=== PATIENT | female | born 1950 | race African-American/Black ===

== ENCOUNTER 2018-01-04 08:51 | Observation (INO) | payer MEDICARE ==
[~2018-01-04] VITALS: Ht 160 cm; Wt 83.2 kg
[2018-01-04] MEDS: D5NS/KCL 20MEQ 1,000 ML IV SCH ×2 (03:00→15:07)
--- OUTSIDE RECORDS SUMMARY | 2018-01-04 08:55 | XMS REPORT ---
Author Author [facility] Address Unknown Phone Unavailable Care Team Providers Care [employer] Name Role Phone Lorene FRANCOIS Unavailable Unavailable Problems This patient has no known problems. Allergies, Adverse Reactions, Alerts This patient has no known allergies or adverse reactions. Medications This patient has no known medications. Results Test Description Test Time Test Comments Text Results Atomic Results Result Comments ABDOMEN COMPLETE - HOPD 2018-01-03 20:16:00 [place] [id number] Patient Name: LAINA BINGHAM MR #: [id number] : 1951 Age/Sex: 66/F Req #: [id number] [facility] Physician: Ordered by: RENAN FRANCOIS MD Report #: [id number] Location: [facility] Room/Bed: Procedure: [id number] HOPD/ABDOMEN COMPLETE - HOPD Exam Date: 01/03/18 Exam Time: 1944 REPORT STATUS: Signed EXAMINATION: ABDOMEN COMPLETE - HOPD INDICATION: Epigastric and abdominal pain with bloating and nausea [id number] COMPARISON: None FINDINGS: TUBES and LINES: None. LUNGS: Lungs are well inflated. Lungs are clear. There is no evidence of pneumonia or pulmonary edema. PLEURA: No pleural effusion or pneumothorax. HEART AND MEDIASTINUM: The cardiomediastinal silhouette is unremarkable. Rounded prominence of the lower mediastinum suggestive of a hiatal hernia. BONES AND SOFT TISSUES: No acute osseous lesion. Soft tissues are unremarkable. ABDOMEN: No free air under the diaphragm. There are cholecystectomy clips. Multiple calcifications overlying the soft tissues of the flanks likely related to subcutaneous injections. Normal amount of stool in the colon. IMPRESSION: No acute thoracic abnormality. Nonobstructive bowel gas pattern. Signed by: DR. Lars Tejada MD on 01/03/2018 8:20 PM Dictated By: LARS TEJADA MD 19 Transcribed By: GENA on 01/03/182019 COPY TO: RENAN FRANCOIS MD
[2018-01-04] MEDS ORDERED: ONDANSETRON HCL INJ 2 MG/ML VIAL IV STA (09:34)
[2018-01-04] MEDS ORDERED: SODIUM CHLORIDE 0.9% 1000ML 1,000 ML IV SCH ×2 (09:45→10:01)
[2018-01-04] MEDS ORDERED: MORPHINE SULFATE INJ 4 MG/ML INJ IV ONE (10:15)
[2018-01-04] MEDS ORDERED: ONDANSETRON HCL INJ 2 MG/ML VIAL IV PRN (10:15)
[2018-01-04] MEDS ORDERED: MORPHINE SULFATE INJ 4 MG/ML INJ IV PRN (10:15)
[2018-01-04 12:20] VITALS: BP 139/63
[2018-01-04 12:44] VITALS: BP 183/79
[2018-01-04] MEDS ORDERED: ACETAMINOPHEN 325 MG TAB PO PRN (12:45)
[2018-01-04] MEDS ORDERED: PREDNISONE10 MG PO (13:04)
[2018-01-04] MEDS ORDERED: LORATADINE10 MG PO (13:10)
[2018-01-04] MEDS ORDERED: HYDRALAZINE HCL 20 MG/ML VIAL IV PRN (13:30)
[2018-01-04] MEDS: METHYLPREDNISOLONE SOD SUCC 40 MG/ML VIAL IV SCH (13:36)
[2018-01-04] MEDS ORDERED: KETOROLAC TROMETHAMINE 30 MG/ML VIAL IV ONE (14:00)
[2018-01-04 14:06] LABS: BASOPHILS % 0.7 % (0.0-1.0); EOSINOPHILS # (AUTO) 0.4 (0.0-0.4); EOSINOPHILS % 10.3 % (0.0-6.0); HEMATOCRIT 34.1 % (34.2-44.1); HEMOGLOBIN 11.3 g/dL (12.0-16.0); LYMPHOCYTES # (AUTO) 1.6 (1.0-3.2); LYMPHOCYTES % 36.9 % (18.0-39.1); MEAN CORPUSCULAR HEMOGLOBIN 30.7 pg (28-32); MEAN CORPUSCULAR HGB CONC 33.1 g/dL (31-35); MEAN CORPUSCULAR VOLUME 92.7 fL (81-99); MONOCYTES # (AUTO) 0.4 (0.2-0.8); MONOCYTES % 10.1 % (4.4-11.3); NEUTROPHILS # (AUTO) 1.8 (2.1-6.9); NEUTROPHILS % 41.8 % (38.7-80.0); PLATELET COUNT 54 x10e3/uL (140-360); RED BLOOD COUNT 3.68 x10e6/uL (3.6-5.1)
[2018-01-04] MEDS ORDERED: MORPHINE SULFATE 2 MG/ML SYR IV PRN (14:15)
[2018-01-04 14:18] LABS: ANION GAP 17.1 mmol/L (8-16); BLOOD UREA NITROGEN 15 mg/dL (7-26); BUN/CREATININE RATIO 14 (6-25); CALCIUM 9.2 mg/dL (8.4-10.2); CARBON DIOXIDE 20 mmol/L (22-29); CHLORIDE 114 mmol/L (98-107); CREATININE, SERUM 1.07 mg/dL (0.57-1.11); EST GLOMERULAR FILTRATION RATE > 60 ML/MIN (60-); GLUCOSE 68 mg/dL (74-118); POTASSIUM 4.1 mmol/L (3.5-5.1); SODIUM 147 mmol/L (136-145)
--- NOTE | 2018-01-04 14:40 | History and Physical ---
DATE OF SERVICE: January 04, 2018 CHIEF COMPLAINT: Difficulty swallowing. HPI: This is a 67-year-old female with known history of primary biliary cirrhosis, being treated by a GI specialist in the [facility], with also history of esophageal stricture about 3 years ago that she reports was due to underlying acid reflux, now presents with a 1-day history of difficulty swallowing. Patient reports that she has been having some nausea and vomiting that all occurred yesterday morning when suddenly she noticed that she had difficulty swallowing. She was able to try to eat breakfast, but the food felt like it was stuck towards the end of her swallow, and she reports that it feels like it was stuck between the esophagus and the entry of her stomach. Patient reports she had something similar several years ago in the [facility], diagnosed with acid reflux. She denies any history of achalasia in the past. She has had esophageal dilatation 3 years ago; and since then, she has not had any. She is currently being treated for primary biliary cirrhosis. She denies any chest pain, palpitation. Reports having some positive abdominal pain. Patient seen and evaluated at bedside on the medical floor, currently doing well with no other issues. REVIEW OF SYSTEMS: Pertinent positives: Decreased oral intake, acid reflux, esophagitis. Pertinent negatives: Denies any chest pain, palpitations, dysuria, hematuria, frequency, urgency, lightheadedness, dizziness, headaches, shortness of breath, cough, congestion, fever, or any other complaints. The rest of the 14-point review of systems has been reviewed with the patient and are negative. ALLERGIES: NO KNOWN DRUG ALLERGIES. HOME MEDICATIONS: She reports just taking prednisone 10 mg daily and then also loratadine as needed. PAST MEDICAL HISTORY: Has a history of esophageal strictures, history of acid reflux, primary biliary cirrhosis. SURGICAL HISTORY: She had EGD 3 years ago with esophageal dilatation due to strictures. FAMILY HISTORY: Hypertension and diabetes. SOCIAL HISTORY: No drugs. No alcohol. Does not smoke. Good social support. PHYSICAL EXAMINATION VITAL SIGNS: Temperature is 97.6, pulse 103, respiratory rate is 18, blood pressure is 183/79, and pulse ox 98% on room air. GENERAL: Not in acute distress, alert and oriented x3, comfortable on examination. HEENT: Head normocephalic, atraumatic. Eyes: Pupils equal, round, and reactive to light bilaterally. Extraocular movements intact bilaterally. Throat; no evidence of any erythema or exudates in the posterior pharynx. Has poor dentition. NECK: Supple. Good range of motion. PULMONARY: Clear to auscultation bilaterally. No wheezing. No rales. No rhonchi. No crackles appreciated. CARDIOVASCULAR: Positive S1 and S2. No murmurs, rubs, or gallops appreciated. ABDOMEN: Soft, nondistended, and nontender to palpation. Bowel sounds present. MUSCULOSKELETAL: Strength is 5/5 throughout. No evidence of any muscle deficit on examination. No weakness appreciated. NEUROLOGICAL: Cranial nerves II through XII are grossly intact. No evidence of any neurological deficits on exam. SKIN: Intact. Warm to touch. Good cap refill. PSYCHIATRIC: Normal affect and mood. EXTREMITIES: No edema. Good range of motion throughout. LAB FINDINGS: None were drawn in the ED. IMAGING STUDIES: KUB showed no acute thoracic abnormality. Nonobstructive bowel gas pattern. IMPRESSION 1. Dysphagia with increased oral secretions. 2. History of esophageal strictures. 3. Primary biliary cirrhosis. 4. Acid reflux. 5. Morbid obesity. PLAN: At this time, GI has been consulted. We are going to keep the patient n.p.o. as she is having difficulty swallowing her own saliva. Put her on D5 NS at 100 mL per hour. All her home medications will be converted to IV if indicated. I discussed this with the patient as well. We will put her on Lovenox for DVT prophylaxis. She will continue to be n.p.o. until further evaluated by GI and will likely need EGD to further evaluate. The patient will also be on Protonix 40 mg IV b.i.d. Discussed the case with nursing staff. Job#: [id number] EDWIN
[2018-01-04 15:40] VITALS: BP 140/65
[2018-01-04] MEDS: PANTOPRAZOLE 40 MG 10ML VIAL IV SCH (17:39)
[2018-01-04 20:00] VITALS: BP 127/65
[2018-01-05] VITALS (8 sets, daily range): BP systolic 119–181; BP diastolic 58–80
[2018-01-05 05:38] LABS: BASOPHILS % 0.3 % (0.0-1.0); EOSINOPHILS # (AUTO) 0.2 (0.0-0.4); EOSINOPHILS % 3.9 % (0.0-6.0); HEMATOCRIT 30.2 % (34.2-44.1); HEMOGLOBIN 10.3 g/dL (12.0-16.0); LYMPHOCYTES # (AUTO) 1.1 (1.0-3.2); LYMPHOCYTES % 27.6 % (18.0-39.1); MEAN CORPUSCULAR HEMOGLOBIN 30.9 pg (28-32); MEAN CORPUSCULAR HGB CONC 34.1 g/dL (31-35); MEAN CORPUSCULAR VOLUME 90.7 fL (81-99); MONOCYTES # (AUTO) 0.4 (0.2-0.8); MONOCYTES % 9.8 % (4.4-11.3); NEUTROPHILS # (AUTO) 2.3 (2.1-6.9); NEUTROPHILS % 58.1 % (38.7-80.0); RED BLOOD COUNT 3.33 x10e6/uL (3.6-5.1); RED CELL DISTRIBUTION WIDTH 15.7 % (11.7-14.4)
[2018-01-05 05:40] LABS: PLATELET COUNT 44 x10e3/uL (140-360)
[2018-01-05 05:55] LABS: ANION GAP 7.6 mmol/L (8-16); CALCIUM 8.7 mg/dL (8.4-10.2); CREATININE, SERUM 1.1 mg/dL (0.57-1.11); POTASSIUM 4.6 mmol/L (3.5-5.1)
[2018-01-05] MEDS: DEXTROSE 5%/0.9% SOD CHL 1,000 ML IV SCH ×2 (07:10→19:08)
[2018-01-05 08:54] LABS: EOSINOPHILS % (MANUAL) 4 % (0-7); LYMPHOCYTES % (MANUAL) 24 % (19-48); MONOCYTES % (MANUAL) 5 % (3.4-9.0); NEUTROPHILS % (MANUAL) 66 % (40-74); PLATELET ESTIMATE MARKEDLY DECREASED; PLATELET MORPHOLOGY COMMENT NORMAL; RBC MORPHOLOGY COMMENT NORMAL
[2018-01-05] MEDS: METHYLPREDNISOLONE SOD SUCC 40 MG/ML VIAL IV SCH (09:17)
[2018-01-05] MEDS: PANTOPRAZOLE 40 MG 10ML VIAL IV SCH ×2 (09:17→17:59)
--- NOTE | 2018-01-05 10:04 | Progress Note ---
DATE: January 05, 2018 MEDICINE PROGRESS NOTE SUBJECTIVE: Patient is doing well today with no complaints. She is scheduled for EGD. She reports that the Protonix has helped her tremendously with her burning sensation in her stomach. OBJECTIVE VITAL SIGNS: Temperature 98.2, pulse 67, respiratory rate 16, blood pressure 125/68, pulse ox 98% on room air. GENERAL: Not in acute distress. Alert and oriented times 3. Cooperative on examination. HEENT: Head is normocephalic and atraumatic. Eyes: Pupils equal, round and reactive to light bilaterally. Extraocular movements intact bilaterally. NECK: Supple. Good range of motion. Throat with no evidence of any erythema or exudates in the posterior pharynx. Has poor dentition. PULMONARY: Clear to auscultation bilaterally. No wheezing. No rales. No rhonchi. No crackles appreciated. CARDIOVASCULAR: Positive S1 and S2. No murmurs, rubs or gallops appreciated. ABDOMEN: Soft, nondistended and nontender to palpation. Bowel sounds present. MUSCULOSKELETAL: Strength is 5/5 throughout. No evidence of any muscle deficit on examination. No weakness appreciated. NEUROLOGICAL: Cranial nerves II-XII are grossly intact. No evidence of any neurological deficits on exam. SKIN: Intact. Warm to touch. Good cap refill. PSYCHIATRIC: Normal affect and mood. EXTREMITIES: No edema. Good range of motion throughout. LAB FINDINGS: Show a white count of 3.8, hemoglobin 10.3, hematocrit is 30, and platelets of 44,000. Platelets yesterday was 54,000. Chemistry: Sodium 143, potassium 4.6, chloride 119, bicarb 21, anion gap of 7.6, BUN 15, creatinine is 1.1, glucose is 91. Calcium is 8.7. MICROBIOLOGY: None. IMAGING STUDIES: None. IMPRESSION 1. Dysphagia with increased oral secretions. 2. History of esophageal stricture. 3. Primary biliary cirrhosis. 4. Acid reflux. 5. Morbid obesity. 6. Thrombocytopenia likely secondary to primary biliary cirrhosis. PLAN: At this time, she is scheduled for EGD later today by GI. She will continue to be n.p.o. Continue on IV fluids. Once the EGD is performed, will initiate diet as per GI recommendations. Continue with Lovenox for DVT prophylaxis. Continue with Protonix b.i.d. If she does well and there is no issues, she will likely be discharged tomorrow if stable and cleared by GI. Job#: [id number] SHAYNE
[2018-01-05] MEDS ORDERED: SODIUM CHLORIDE 0.9% 250ML 250 ML ONE (13:30)
[2018-01-05] MEDS ORDERED: FENTANYL CITRATE/PF 100MCG/2 ML INJ ONE (18:29)
[2018-01-05] MEDS ORDERED: MIDAZOLAM HCL 2 MG/2 ML VIAL ONE (18:29)
[2018-01-05] MEDS ORDERED: SIMETHICONE 80 MG CHEW PO PRN (19:15)
[2018-01-05] MEDS ORDERED: CHLORASEPTIC SPRAY 177 ML BTL MM PRN (20:45)
[2018-01-06] VITALS (8 sets, daily range): BP systolic 120–146; BP diastolic 69–83
[2018-01-06] MEDS: DEXTROSE 5%/0.9% SOD CHL 1,000 ML IV SCH ×2 (03:04→12:45)
[2018-01-06] MEDS: PANTOPRAZOLE 40 MG 10ML VIAL IV SCH ×2 (08:38→16:43)
[2018-01-06] MEDS: METHYLPREDNISOLONE SOD SUCC 40 MG/ML VIAL IV SCH (08:38)
--- NOTE | 2018-01-06 16:01 | Progress Note ---
DATE: January 06, 2018 MEDICINE PROGRESS NOTE SUBJECTIVE: Patient is doing well today. She did have an esophageal dilatation yesterday performed by GI. She is currently on a full-liquid diet and it will be advanced per GI recommendations. OBJECTIVE VITAL SIGNS: Temperature is 98.8. Pulse is 84. Respiratory rate is 14. Blood pressure is 120/69. Pulse ox 98% on room air. LAB FINDINGS: Showed a white count of 3.8, hemoglobin 10.3, hematocrit is 30, platelets of 44. CHEMISTRY: Sodium 143, potassium 4.6, chloride 119, bicarb is 21, anion gap of 7.6, BUN is 15, creatinine is 1.1, glucose is 91, calcium is 8.7. MICROBIOLOGY: None. IMAGING STUDIES: None. PHYSICAL EXAMINATION GENERAL: Not in acute distress. Alert, oriented x3, cooperative on examination. HEENT: Head: Normocephalic, atraumatic. Eyes: Pupils equally round and reactive to light bilaterally. Extraocular movements intact bilaterally. Neck was supple with good range of motion. Throat: No evidence of any erythema or exudates in the posterior pharynx. Has poor dentition. PULMONARY: Clear to auscultation bilaterally. No wheezing, no rales, no rhonchi, no crackles appreciated. CARDIOVASCULAR: Positive S1/S2. No murmurs, rubs or gallops appreciated. ABDOMEN: Soft, nondistended, nontender to palpation. Bowel sounds present. MUSCULOSKELETAL: Strength is 5/5 throughout. No evidence of any musculoskeletal deficit on examination. No weakness appreciated. NEUROLOGICAL: Cranial nerves 2-12 grossly intact. No evidence of any neurological deficit on exam. SKIN: Intact. Warm to touch. Good capillary refill. PSYCHIATRIC: Normal affect and mood. EXTREMITIES: No edema. Good range of motion throughout. IMPRESSION 1. Dysphagia status post esophageal dilatation. 2. History of esophageal stricture. 3. Primary biliary cirrhosis. 4. Acid reflux. 5. Morbid obesity. 6. Thrombocytopenia secondary to primary biliary cirrhosis. PLAN: Patient is on full-liquid diet per GI recommendations. Advancement of the diet will be per GI. Continue same home medications for now. She is tolerating her diet well. Continue with Protonix b.i.d. If the patient is cleared tomorrow by GI, will be discharged. Her thrombocytopenia is likely due to biliary cirrhosis, and currently there is no need for any transfusion. Will repeat labs in the morning. Job#: [id number] EV
[2018-01-07] VITALS: BP 132/60
[2018-01-07 04:00] VITALS: BP 145/76
[2018-01-07 05:27] LABS: BASOPHILS % 0.5 % (0.0-1.0); EOSINOPHILS # (AUTO) 0.3 (0.0-0.4); EOSINOPHILS % 6.2 % (0.0-6.0); HEMATOCRIT 29.4 % (34.2-44.1); LYMPHOCYTES # (AUTO) 1.5 (1.0-3.2); MEAN CORPUSCULAR HEMOGLOBIN 30.8 pg (28-32); MEAN CORPUSCULAR VOLUME 90.5 fL (81-99); MONOCYTES # (AUTO) 0.4 (0.2-0.8); MONOCYTES % 10.1 % (4.4-11.3); NEUTROPHILS # (AUTO) 1.8 (2.1-6.9); RED BLOOD COUNT 3.25 x10e6/uL (3.6-5.1); RED CELL DISTRIBUTION WIDTH 15.7 % (11.7-14.4)
[2018-01-07 05:38] LABS: ANION GAP 10.7 mmol/L (8-16); CALCIUM 8.1 mg/dL (8.4-10.2); CREATININE, SERUM 1.12 mg/dL (0.57-1.11); POTASSIUM 3.7 mmol/L (3.5-5.1)
[2018-01-07 06:16] LABS: PLATELET COUNT 56 x10e3/uL (140-360)
[2018-01-07 07:46] VITALS: BP 162/78
[2018-01-07] MEDS: PANTOPRAZOLE 40 MG 10ML VIAL IV SCH (08:40)
[2018-01-07] MEDS: METHYLPREDNISOLONE SOD SUCC 40 MG/ML VIAL IV SCH (08:40)
[2018-01-07 11:14] VITALS: BP 158/85
[2018-01-07 15:27] VITALS: BP 142/77
--- NOTE | 2018-01-07 20:55 | Discharge Summary ---
FINAL DISCHARGE DIAGNOSES 1. Dysphagia status post esophageal strictures with status post dilatation. 2. History of esophageal strictures. 3. Primary biliary cirrhosis. 4. Acid reflux. 5. Morbid obesity. 6. Thrombocytopenia secondary to primary biliary cirrhosis. CONSULTANTS: GI. VITAL SIGNS: Temperature is 97.6, pulse 101, respiratory rate is 19, blood pressure 142/77, pulse ox 98% on room air. LAB FINDINGS: Show white count is 4, hemoglobin is 10, hematocrit is 29, platelets of 56. CHEMISTRY: Sodium 143, potassium 3.7, chloride is 114, bicarb is 22, anion gap of 10, BUN is 13, creatinine is 1.1, calcium is 8.1. IMAGING STUDIES: None. HOSPITAL COURSE: This is a 67-year-old female who came in with underlying dysphagia and difficulty swallowing, ongoing for the last several days prior to arrival to the ED. Patient also described having severe acid reflux as well. GI was consulted for further evaluation. Patient underwent status post EGD in which the patient underwent underlying esophageal dilatation that was performed on January 05, 2018. Patient was also found to have mildly stenotic pyloric channel and a small hiatal hernia as well as gastritis. Patient was found to have esophageal strictures at the GE junction as well as the distal esophagus. Patient did well postprocedurally and was tolerating diet well. She will be discharged on oral Protonix as well. Patient needs to follow up with her primary GI specialist for further management and care and close followup. On discharge the patient was back to normal baseline with no other issues. On the day of discharge, vital signs stable, labs reviewed and stable. Patient seen and evaluated and examined thoroughly on the day of discharge with no new complaints. Patient verbalized understanding and agreed with plan of care to follow up accordingly as an outpatient with the primary care physician in 1 week and the GI specialist in 2 weeks' time. MEDICATIONS: See med reconciliation form. DISPOSITION: To home. CONDITION: Stable. DIET: Heart healthy. In the event of any worsening symptoms, the patient advised to come back to the ED for further evaluation. Discharge summary took greater than 35 minutes. IVETTE WHITE MD Job#: [id number] EV
== END 2018-01-07 17:20 | disposition home or self-care (01) ==
LOC: FSED 08:51 → ERHOLD 10:06 → IMCU 12:15
PROVIDERS: ADMIT Internal Medicine; ATTEND Internal Medicine
DX: K22.2 Esophageal obstruction (principal); K21.9 Gastro-esophageal reflux disease without esophagitis; M06.9 Rheumatoid arthritis, unspecified; K74.3 Primary biliary cirrhosis; Z83.3 Family history of diabetes mellitus; Z82.49 Family history of ischemic heart disease and other diseases of the circulatory system; R13.10 Dysphagia, unspecified; E66.01 Morbid (severe) obesity due to excess calories; K44.9 Diaphragmatic hernia without obstruction or gangrene; K29.70 Gastritis, unspecified, without bleeding; Z68.28 Body mass index [BMI] 28.0-28.9, adult
CPT/HCPCS: 36415 ×3; 36430; 43249; 80048 ×3; 80076; 81003; 85025 ×3; 86850; 86900; 93005; 99284; G0378 ×4; J0360; J1885; J2250; J2270; J2405; J2920 ×4; J7042 ×2; J7050; P9034; 43235; 43450

== ENCOUNTER 2018-01-10 22:05 | Emergency (ER) | payer MEDICARE ==
[~2018-01-10] VITALS: Ht 160 cm; Wt 83.0 kg
[~2018-01-10 22:05] MED LIST: LORATADINE10 MG PO; PREDNISONE10 MG PO
[2018-01-10] MEDS ORDERED: CLONIDINE HCL 0.2 MG TAB PO ONE (23:00)
[2018-01-10] MEDS ORDERED: ACETAMINOPHEN/CODEINE 300MG - 30MG TAB PO ONE (23:00)
--- NOTE | 2018-01-10 23:09 | Diagnostic Imaging Report ---
History: Headache Comparison studies: None Technique: Axial images were obtained from the skull base to the vertex. Coronal and sagittal reconstructions obtained from the axial data. Dose modulation, iterative reconstruction, and/or weight based adjustment of the mA/kV was utilized to reduce the radiation dose to as low as reasonably achievable. Findings: Scalp/skull: No abnormalities. No fractures, blastic or lytic lesions. Extra-axial spaces: No masses. No fluid collections. Brain sulci: Appropriate for age. Ventricles: Normal in size and configuration. No hydrocephalus. Parenchyma: No abnormal densities. No masses, hemorrhage, acute or chronic cortical vascular insults. Sellar/suprasellar region: No abnormalities Craniocervical junction: Patent foramen magnum. No Chiari one malformation. Incidental findings: Atherosclerotic calcifications in the carotid siphons and right vertebral artery. IMPRESSION: No intracranial abnormalities. Signed by: Dr. Artie Daniel M.D. on 01/10/2018 11:06 PM
[2018-01-10] MEDS ORDERED: NICARDIPINE 20MG/200ML PREMIX 200 ML IV PRN (23:15)
[2018-01-10] MEDS ORDERED: AUGMENTIN 875-1 EACH PO (23:17)
[2018-01-10] MEDS ORDERED: HYDROCHLOROTHIA25 MG PO (23:18)
[2018-01-10] MEDS ORDERED: ACETAMINOPHEN/CODEINE ELIX 120-12 MG/5 ML UDC PO ONE (23:45)
[2018-01-11 00:12] VITALS: BP 156/69
== END 2018-01-10 23:50 | disposition home or self-care (01) ==
LOC: FSED 22:05
DX: R51 Headache (principal); I10 Essential (primary) hypertension; J01.00 Acute maxillary sinusitis, unspecified
CPT/HCPCS: 70450; 99283

== ENCOUNTER 2019-02-06 16:55 | Inpatient (IN) | payer MEDICARE ==
[~2019-02-06] VITALS: Ht 160 cm; Wt 78.1 kg
[~2019-02-06 16:55] MED LIST changes: +AUGMENTIN 875-1 EACH PO; +HYDROCHLOROTHIA25 MG PO
--- NOTE | 2019-02-06 18:47 | Diagnostic Imaging Report ---
EXAM: PA and lateral views of the chest. COMPARISON: Chest radiograph 01/03/2018 CLINICAL HISTORY: ^[id number] ^[id number] FINDINGS: Lines/tubes: None. Lungs: Bilateral interstitial edema. Bibasilar atelectasis. Pleura: Small bilateral pleural effusions. No pneumothorax. Heart and mediastinum: Stable mild enlargement of the cardiac silhouette. Bones and soft tissues: No acute bony abnormalities. Surgical clips overlying the right upper quadrant. IMPRESSION: Interval development of bilateral interstitial edema with associated small bilateral pleural effusions. Signed by: Dr. Madison Valentin M.D. on 02/06/2019 6:43 PM
--- NOTE | 2019-02-06 18:50 | Diagnostic Imaging Report ---
EXAM: CT Abdomen and Pelvis WITHOUT contrast INDICATION: ^[id number] ^[id number] COMPARISON: KUB 01/03/2018 TECHNIQUE: Abdomen and pelvis were scanned utilizing a multidetector helical scanner from the lung base to the pubic symphysis without administration of IV contrast. Absence of intravenous contrast decreases sensitivity for detection of focal lesions and vascular pathology. Coronal and sagittal reformations were obtained. Routine protocol was performed. IV CONTRAST: None. ORAL CONTRAST: None RADIATION DOSE: Total DLP: 622 mGy*cm Estimated effective dose: (DLP x 0.015 x size factor) mSv COMPLICATIONS: None FINDINGS: LINES and TUBES: None. LOWER THORAX: Small bilateral pleural effusions. HEPATOBILIARY: Cirrhosis. No focal hepatic lesions on limited evaluation. No biliary ductal dilation. GALLBLADDER: Cholecystectomy. SPLEEN: No splenomegaly. PANCREAS: No focal masses or ductal dilatation. ADRENALS: No adrenal nodules KIDNEYS/URETERS: No hydronephrosis. No cystic or solid mass lesions. No stones. GI TRACT: Diffuse wall thickening of the ascending colon and cecum which may be reactive to the ascites and/or secondary to colitis. No bowel dilatation or obstruction. Appendix is normal. PELVIC ORGANS/BLADDER: Unremarkable. LYMPH NODES: No lymphadenopathy. VESSELS: Unremarkable. PERITONEUM / RETROPERITONEUM: No free air. Moderate low-attenuation ascites mainly in the perihepatic region and pelvis. BONES: Unremarkable. SOFT TISSUES: Unremarkable. IMPRESSION: 1. Moderate ascites with diffuse wall thickening of the ascending colon may be reactive or associated with superimposed colitis. No free air or abscess. The appendix appears normal. 2. Cirrhosis. Signed by: Dr. Madison Valentin M.D. on 02/06/2019 6:47 PM
[2019-02-06] MEDS ORDERED: FUROSEMIDE INJ 10 MG/ML 4 ML VIAL IV STA (19:18)
[2019-02-06] MEDS: ONDANSETRON HCL INJ 2MG/ML 2ML 2 MG/ML VIAL IV PRN (20:18)
[2019-02-06] MEDS ORDERED: ONDANSETRON HCL INJ 2MG/ML 2ML 2 MG/ML VIAL ONE (20:18)
[2019-02-06] MEDS: MORPHINE SULFATE INJ 4 MG/ML INJ 1ML IV PRN (20:19)
[2019-02-06] MEDS ORDERED: FUROSEMIDE INJ 10 MG/ML 4 ML VIAL ONE (20:19)
[2019-02-06] MEDS ORDERED: MORPHINE SULFATE INJ 4 MG/ML INJ 1ML ONE (20:19)
--- NOTE | 2019-02-06 21:10 | NUR ---
RECEIVED REPORT FROM GABO [facility] NURSE. PATIENT ARRIVED VIA STRETCHER. PATIENT IS A&OX3. CALL LIGHT WITHIN REACH.
[2019-02-06 21:30] VITALS: BP_SYST 195; BP_DIAS 81; BP_DIAS 87
[2019-02-06] MEDS: SODIUM CHLORIDE FLUSH 10 ML SYR INJ PRN (22:00)
[2019-02-06 23:05] VITALS: BP 130/71
[2019-02-07] VITALS (7 sets, daily range): BP systolic 128–177; BP diastolic 56–70
[2019-02-07] MEDS ORDERED: CALCIUM 500+D1 EACH (02:51)
[2019-02-07] MEDS ORDERED: PANTOPRAZOLE SO40 MG PO (02:51)
[2019-02-07] MEDS ORDERED: SPIRONOLACTONE25 MG PO (02:51)
[2019-02-07] MEDS ORDERED: VITAMIN D400 UNIT PO (02:51)
[2019-02-07] MEDS ORDERED: HYDRALAZINE HCL 20 MG/ML VIAL IV PRN (06:30)
[2019-02-07] MEDS ORDERED: TRAMADOL HCL 50 MG TAB PO PRN (06:30)
--- NOTE | 2019-02-07 07:00 | NUR ---
received am report and rounds done. pt is alert resting in bed, no s/s of distress. lab is at the bedside preparing for blood draw. call light is within reach and instructed pt to call RN for help
--- NOTE | 2019-02-07 07:28 | NUR ---
Gave report to oncoming nurse. Call light within reach. Patient in bed. Granddaughter at the bedside
[2019-02-07 07:29] LABS: BASOPHILS % 0.2 % (0.0-1.0); EOSINOPHILS # (AUTO) 0.1 (0.0-0.4); EOSINOPHILS % 1.5 % (0.0-6.0); HEMATOCRIT 29.3 % (34.2-44.1); HEMOGLOBIN 9.5 g/dL (12.0-16.0); LYMPHOCYTES # (AUTO) 1.9 (1.0-3.2); MEAN CORPUSCULAR HEMOGLOBIN 30.2 pg (28-32); MEAN CORPUSCULAR HGB CONC 32.4 g/dL (31-35); MONOCYTES # (AUTO) 0.8 (0.2-0.8); MONOCYTES % 9.1 % (4.4-11.3); NEUTROPHILS # (AUTO) 6.4 (2.1-6.9); NEUTROPHILS % 68.9 % (38.7-80.0); PLATELET COUNT 64 x10e3/uL (140-360); RED BLOOD COUNT 3.15 x10e6/uL (3.6-5.1); RED CELL DISTRIBUTION WIDTH 14.8 % (11.7-14.4)
[2019-02-07 07:57] LABS: ALBUMIN 2.3 g/dL (3.5-5.0); ANION GAP 14.8 mmol/L (8-16); CALCIUM 8.8 mg/dL (8.4-10.2); CREATININE, SERUM 3.09 mg/dL (0.57-1.11); POTASSIUM 4.8 mmol/L (3.5-5.1)
[2019-02-07 08:16] LABS: THYROID STIMULATING HORMONE 3.833 uIU/mL (0.350-4.940)
[2019-02-07] MEDS: SPIRONOLACTONE 25 MG TAB PO SCH (08:28)
[2019-02-07] MEDS: FUROSEMIDE INJ 10 MG/ML 4 ML VIAL IV SCH (08:28)
[2019-02-07 11:48] LABS: BILIRUBIN,DIRECT 0.9 mg/dL (0.0-0.5)
[2019-02-07] MEDS ORDERED: HYDROCORTISONE 2.5% PR CRM 1 OZ TUBE PR PRN (12:45)
[2019-02-07] MEDS: MORPHINE SULFATE INJ 4 MG/ML INJ 1ML IV PRN (13:03)
[2019-02-07] MEDS: ONDANSETRON HCL INJ 2MG/ML 2ML 2 MG/ML VIAL IV PRN (13:03)
--- NOTE | 2019-02-07 13:37 | NUR ---
sample cup provided to patient for urine collection. pt education rendered
[2019-02-07 15:18] LABS: CLARITY,URINE CLEAR (CLEAR); COLOR,URINE YELLOW (YELLOW)
[2019-02-07 15:19] LABS: KETONES,URINE NEGATIVE (NEGATIVE); LEUKOCYTE ESTERASE ,URINE NEGATIVE (NEGATIVE); NITRITE,URINE NEGATIVE (NEGATIVE); PROTEIN,URINE DIPSTICK 2+ (NEGATIVE); URINE UROBILINOGEN 0.2 mg/dL (0.2 - 1)
[2019-02-07 15:20] LABS: BILIRUBIN,URINE NEGATIVE (NEGATIVE)
[2019-02-07 15:23] LABS: CREATININE,URINE RANDOM 34.95 mg/dL (47-110); SODIUM,URINE 84 mmol/L; TOTAL PROTEIN, URINE 80.3 mg/dL (1-14)
[2019-02-07 15:26] LABS: RBC,URINE >50 /HPF (0-5); WBC,URINE (MAN) 21-50 /HPF (0-5)
[2019-02-07 15:27] LABS: BACTERIA,URINE RARE /HPF; EPITHELIAL CELLS,URINE FEW /LPF
[2019-02-07 16:12] LABS: INR 1.04; PROTHROMBIN TIME 14.1 seconds (11.9-14.5)
[2019-02-07 16:13] LABS: PARTIAL THROMBOPLASTIN TIME 27.7 seconds (23.8-35.5)
[2019-02-07 17:44] LABS: HIV 1&2 AB SCREEN NON-REACTIVE (NONREACTIVE)
[2019-02-07 18:23] LABS: EOSINOPHIL SMEAR,URINE NONE SEEN (NONE SEEN)
--- NOTE | 2019-02-07 19:00 | NUR ---
RECEIVED REPORT FROM PREVIOUS NURSE. CALL LIGHT WITHIN REACH. PATIENT IN BED.
--- NOTE | 2019-02-07 19:38 | Consultation ---
DATE OF CONSULTATION: 02/07/2019 Nephrology Consultation REASON FOR CONSULTATION: Acute versus chronic kidney disease. HISTORY OF PRESENT ILLNESS: This is a 68-year-old female, who reportedly has only a history of hypertension, chronic history of lower extremity edema, comes into the ED with complaints of diffuse anasarca. The patient reports that about 6 months ago back in August of 2018, she was admitted in [place] due to having underlying anasarca and had a complete workup at that time. Of note, she reports that they stated to her that she did not have evidence of any heart failure, but did report that she had underlying chronic kidney disease, but cannot recall what the numbers were. She reports that she frequently follows up with her primary care physician, get labs, but has never told her that she has chronic kidney disease. Of note, she used to take NSAIDs at home several years ago due to chronic rheumatoid arthritis pain. She reports she had quit her NSAIDs more than 10 years ago. She denies any cied-phh-uhaxpyc herbals, but does take CBD for chronic pain issues. She reports having hypertension of note for a number of years, but denies any diabetes, smoking history, or any heart disease. She denies any chronic urinary tract infections. Denies any renal stones. She does not recall what her last renal function was. Our records show only one creatinine, which was from early this morning. The patient is seen and evaluated at bedside on the medical floor. Currently, the patient is doing well with no other issues at this time. She is scheduled for a paracentesis tomorrow. REVIEW OF SYSTEMS: 1. Pertinent positives: Lower extremity edema, underlying ascites. 2. Pertinent negatives: Denies any chest pain, palpitation, nausea, vomiting, diarrhea, dysuria, hematuria, frequency, urgency, lightheadedness, dizziness, abdominal pain, headaches, shortness of breath, cough, congestion, fever, or any other complaints. The rest of 14-point review of systems are reviewed with the patient and are negative. ALLERGIES: TOFACITINIB. HOME MEDICATIONS: 1. Augmentin. 2. Vitamin D3. 3. Hydrochlorothiazide. 4. Loratadine. 5. Prednisone. 6. Cholecalciferol. 7. Protonix. 8. Spironolactone. PAST MEDICAL HISTORY: She has rheumatoid arthritis, hypertension, history of ascites, and lower extremity edema. PAST SURGICAL HISTORY: Reports none. FAMILY HISTORY: Hypertension and diabetes. SOCIAL HISTORY: No drugs. No alcohol. Does not smoke. Good social support. PHYSICAL EXAMINATION: VITAL SIGNS: Temperature is 97.3, pulse 87, respiratory rate is 18, blood pressure is 135/56, and pulse ox is 98% on room air. GENERAL: In no acute distress. Alert and oriented x3. Cooperative on examination. HEENT: Head, normocephalic and atraumatic. Eyes, pupils are equal, round, reactive to light bilaterally. Extraocular movements intact bilaterally. Throat, no evidence of erythema or exudates in the posterior pharynx. Has poor dentition. NECK: Supple. Good range of motion. PULMONARY: Clear to auscultation bilaterally. No wheezing, no rales, no rhonchi, and no crackles appreciated. CARDIOVASCULAR: Positive S1 and S2. No murmurs, rubs, or gallops appreciated. ABDOMEN: Soft, nondistended, and nontender to palpation. Bowel sounds present. MUSCULOSKELETAL: Strength is 5/5 throughout. No evidence of any muscle deficits on examination. No weakness appreciated. NEUROLOGIC: Cranial nerves II through XII grossly intact. No evidence of any neurological deficits on exam. SKIN: Intact. Warm to touch. Good cap refill. PSYCHIATRIC: Normal affect and mood. EXTREMITIES: Has significant anasarca. LABORATORY DATA: Show white count 9.2, hemoglobin 9.5, hematocrit is 29, and platelets of 64. Chemistry; sodium 141, potassium 4.8, chloride 113, bicarb 18, anion gap of 14, BUN is 47, creatinine is 3.09, glucose is 78, hemoglobin A1c 4.3, and total bilirubin was 1.6. LFTs within normal range. Ammonia level 58. Total protein is 5.6. Albumin was 2.3. Lipase 34. TSH 3.8. Microbiology, blood cultures are pending. IMAGING STUDIES: Chest x-ray shows interval development of bilateral interstitial edema with associated small bilateral pleural effusions. CT of the abdomen and pelvis show moderate ascites with diffuse wall thickening of the ascending colon, may be reactive or superimposed colitis. Also shows underlying cirrhosis. IMPRESSION: 1. Acute versus chronic kidney disease, stage 4. 2. Acute colitis. 3. Liver cirrhosis of unknown etiology. 4. Hypoalbuminemia. 5. Once the patient has a paracentesis, I will go ahead and order some albumin as well to avoid any worsening renal function. I will go ahead and continue with the Lasix for now and Aldactone despite it may make the renal function worse, but she does have significant amount of anasarca, which would likely be beneficial otherwise. PLAN: At this time, Nephrology was consulted to evaluate the underlying etiology of her renal failure. After further interview with the patient, the patient denies any history of herbal supplements or any auwp-[id number]-khddpov medications. No history of UTIs. No history of renal stones. No reports of any hypertension just recently. She notes that she was diagnosed with high blood pressure and given diuretics. Also denies diabetes, but does endorse taking chronic NSAIDs in the past. The patient does not recall what her baseline creatinine is. At this time, a renal ultrasound has been ordered to evaluate for chronicity and size of the kidney and also evaluate for any type of obstruction. It could be the patient may have some underlying abdominal compartment syndrome leading to rise in creatinine due to her underlying ascites and liver cirrhosis. I feel that the patient may also have a component of hepatorenal syndrome type 2 considering the fact that she has underlying liver cirrhosis from unknown etiology. We will go ahead and order some urine electrolytes including urine sodium, urine protein to creatinine as well as microalbumin to creatinine ratio including urine chloride. I will also order a serum uric acid level as well as morning labs with CBC and a chemistry. Also, we will get a UA to evaluate for any kind of hematuria and if so she will need further workup in relation to her hematuria. If the patient has significant proteinuria, we will get a proteinuria workup including hepatitis and HIV panel. If the patient's creatinine does not improve, she may need a renal biopsy to further evaluate. I do not have any type of baseline creatinine to understand where she truly lives, but she does have evidence of hypoalbuminemia, which I am concerning that the patient likely has some sort of nephrotic range proteinuria. Otherwise, we will continue with same plan of care and monitor very closely. Thank you so much for this consultation. We will continue to follow with you. MD ELSY Wiggins/SHERI /[id number]
[2019-02-07] MEDS: PANTOPRAZOLE SOD 40 MG TABEC PO SCH (20:14)
[2019-02-08] VITALS (7 sets, daily range): BP systolic 123–139; BP diastolic 58–67
[2019-02-08 04:06] LABS: BASOPHILS % 0.1 % (0.0-1.0); EOSINOPHILS % 0.6 % (0.0-6.0); HEMATOCRIT 27.9 % (34.2-44.1); HEMOGLOBIN 8.8 g/dL (12.0-16.0); LYMPHOCYTES # (AUTO) 0.9 (1.0-3.2); LYMPHOCYTES % 12.7 % (18.0-39.1); MEAN CORPUSCULAR HEMOGLOBIN 30.3 pg (28-32); MEAN CORPUSCULAR HGB CONC 31.5 g/dL (31-35); MONOCYTES # (AUTO) 0.5 (0.2-0.8); MONOCYTES % 6.6 % (4.4-11.3); NEUTROPHILS # (AUTO) 5.6 (2.1-6.9); NEUTROPHILS % 79.6 % (38.7-80.0); PLATELET COUNT 60 x10e3/uL (140-360); RED CELL DISTRIBUTION WIDTH 14.8 % (11.7-14.4)
[2019-02-08 04:07] LABS: MEAN CORPUSCULAR VOLUME 96.2 fL (81-99)
[2019-02-08 04:25] LABS: ANION GAP 16.1 mmol/L (8-16); CALCIUM 8.4 mg/dL (8.4-10.2); CREATININE, SERUM 3.34 mg/dL (0.57-1.11); MAGNESIUM 2.2 MG/DL (1.3-2.1); POTASSIUM 5.1 mmol/L (3.5-5.1)
[2019-02-08] MEDS ORDERED: LORAZEPAM INJ 2 MG/ML VIAL IV PRN (06:30)
[2019-02-08] MEDS: CEFTRIAXONE SOD 1 GM/NS 50 ML 50 ML IV SCH (06:39)
[2019-02-08] MEDS ORDERED: SODIUM CHLORIDE 0.9% 250ML 250 ML ONE (06:45)
--- NOTE | 2019-02-08 07:00 | NUR ---
received am report and rounds done. pt is alert resting in bed, no s/s of distress. call light within reach and instructed pt to call RN for help
--- NOTE | 2019-02-08 07:17 | NUR ---
Gave report to oncoming nurse. Call light within reach. Patient in bed.
[2019-02-08] MEDS: SPIRONOLACTONE 25 MG TAB PO SCH (09:00)
[2019-02-08] MEDS: FUROSEMIDE INJ 10 MG/ML 4 ML VIAL IV SCH (09:00)
[2019-02-08] MEDS: PREDNISONE 10 MG TAB PO SCH (09:00)
[2019-02-08] MEDS ORDERED: ALBUMIN 25% 25GM 100ML 0.25 GM/ML BTL IV ONE (12:30)
[2019-02-08] MEDS ORDERED: MORPHINE SULFATE 2 MG/ML SYR 1ML IV PRN (12:45)
--- NOTE | 2019-02-08 13:03 | NUR ---
product technician is at the bedside and notified RN that there is no fluid detected in the abdomen on the ultrasound. notified Ann Marie Cagle NP of the findings and received no new orders. pt is to still go down to radiology.
--- NOTE | 2019-02-08 13:22 | Diagnostic Imaging Report ---
EXAM: Focused Ultrasound Evaluation of the abdomen INDICATION: Ascites COMPARISON: None TECHNIQUE: Saenz scale images of all 4 quadrants of the abdomen were obtained. FINDINGS: No abdominal ascites. IMPRESSION: No ascites. The requested paracentesis is thus not possible. Signed by: Caleb Dunn MD on 02/08/2019 1:19 PM
--- NOTE | 2019-02-08 13:23 | Diagnostic Imaging Report ---
EXAM: Renal Ultrasound INDICATION: ^renal failure ^[id number] ^[id number] COMPARISON: None TECHNIQUE: Transverse and longitudinal images of the kidneys and bladder were obtained. FINDINGS: Right Kidney: Length: 9.4 cm Appearance: Normal echogenicity. Collecting system: No hydronephrosis Stones: None Cyst/Mass: None Left Kidney: Length: 9.0 cm Appearance: Normal echogenicity. Collecting system: No hydronephrosis Stones: None Cyst/Mass: None Bladder: No mass or calculi. Ureteral jets not visualized. Prevoid volume estimate of 42 cc. IMPRESSION: No renal calculi or hydronephrosis. Signed by: Caleb Dunn MD on 02/08/2019 1:20 PM
[2019-02-08] MEDS ORDERED: ALBUMIN 25% 25GM 100ML 100 ML IV ONE (14:00)
--- NOTE | 2019-02-08 14:40 | Progress Note ---
DATE: 02/08/2019 Nephrology Progress Note SUBJECTIVE: The patient is doing well today with no complaints. She is scheduled for paracentesis later today. PHYSICAL EXAMINATION: VITAL SIGNS: Afebrile and normotensive. Respiratory rate is good, saturating 97% on room air. GENERAL: Not in acute distress. Alert and oriented x3. Cooperative on examination. HEENT: Head; normocephalic and atraumatic. Eyes; pupils are equal, round, and reactive to light bilaterally. Extraocular movements intact bilaterally. Throat; no evidence of erythema or exudates in the posterior pharynx. Has poor dentition. NECK: Supple. Good range of motion. PULMONARY: Clear to auscultation bilaterally. No wheezing, rales, or rhonchi. No crackles appreciated. CARDIOVASCULAR: Positive S1 and S2. No murmurs, rubs, or gallops appreciated. ABDOMEN: Soft, nondistended, and nontender to palpation. Bowel sounds present. MUSCULOSKELETAL: Strength is 5/5 throughout. No evidence of any muscle deficits on examination. No weakness appreciated. NEUROLOGICAL: Cranial nerves II through XII grossly intact. No evidence of any neurological deficits on exam. SKIN: Intact. Warm to touch. Good cap refill. PSYCHIATRIC: Normal affect and mood. EXTREMITIES: No edema. Good range of motion throughout. LABORATORY DATA: Labs reviewed shows CBC; white count 7, hemoglobin 8.8, hematocrit 27, and platelets of 60. Chemistry; sodium 136, potassium is 5.1, chloride 109, bicarb is 16, anion gap of 16, BUN is 50, creatinine is 3.3, glucose is 127, uric acid was 11.7, calcium 8.4, and magnesium was 2.2. AST 55, ALT 39, and total bilirubin is 1.6. TSH is 3.8. Albumin 2.3. Ammonia level was 58. Urine protein to creatinine was 2 g. Urine sodium 84, urine protein 80, urine microalbumin to creatinine was 534. UA showed RBCs greater than 50. Chest x-ray shows some evidence of edema. CT abdomen and pelvis moderate ascites with diffuse wall thickening of the ascending colon may represent reactive associated with superimposed colitis. No free air or abscess. There is evidence of cirrhosis. IMPRESSION: 1. Acute versus chronic kidney disease, stage 4, likely to be chronic in nature acute colitis. 2. Acute colitis. 3. Liver cirrhosis, unknown etiology. 4. Hypoalbuminemia with the phrenic range of proteinuria. 5. Hyperuricemia. PLAN: At this time, after reviewing the UA, she does have some RBCs, which I would like to order some more studies in relation to her RBCs in which I will go ahead and order a C3, C4, hepatitis panel, HIV panel, p-ANCA, c-ANCA, anti-GBM as well. The creatinine did get worse, which is concerning. Her medications were reviewed. Renal ultrasound is still pending. She is scheduled for paracentesis today in which I order some albumin to be infused during the paracentesis. She does have underlying liver cirrhosis, so it could be that the patient likely has hepatorenal syndrome type 2. Based on that, also she was taking NSAIDs in the past. So, she may have developed some chronic disease related to the NSAID usage. My concern is that she does have 5 g proteinuria. She may need a renal biopsy because I do not know the etiology of her renal failure. She does need further multiple myeloma workup including free light chain, SPEP, and UPEP. She may also need Hematology consultation as she is anemic. She also has significant amount of elevated uric acid, which I will go ahead and start on some allopurinol while here. Otherwise, we will continue with same plan of care and monitor very closely. MD ELSY Wiggins/SHERI /[id number]
[2019-02-08] MEDS ORDERED: MORPHINE SULFATE INJ 4 MG/ML INJ 1ML IV PRN (15:45)
--- NOTE | 2019-02-08 20:16 | NUR ---
RECEIVED PT IN BED AOX3 RESPIRATIONS ARE EVEN AND UNLABORED TELE #[id number] SHOWS SR.CALL LIGHT WITH IN REACH .CONTINUE TO MONITOR
[2019-02-09] VITALS (9 sets, daily range): BP systolic 115–146; BP diastolic 55–76
[2019-02-09 05:52] LABS: BASOPHILS % 0.3 % (0.0-1.0); EOSINOPHILS # (AUTO) 0.2 (0.0-0.4); EOSINOPHILS % 2.8 % (0.0-6.0); HEMOGLOBIN 7.9 g/dL (12.0-16.0); LYMPHOCYTES # (AUTO) 1.8 (1.0-3.2); LYMPHOCYTES % 27.8 % (18.0-39.1); MEAN CORPUSCULAR HEMOGLOBIN 30.5 pg (28-32); MEAN CORPUSCULAR HGB CONC 32.9 g/dL (31-35); MEAN CORPUSCULAR VOLUME 92.7 fL (81-99); MONOCYTES # (AUTO) 0.7 (0.2-0.8); MONOCYTES % 11.4 % (4.4-11.3); NEUTROPHILS # (AUTO) 3.7 (2.1-6.9); NEUTROPHILS % 56.2 % (38.7-80.0); PLATELET COUNT 53 x10e3/uL (140-360); RED BLOOD COUNT 2.59 x10e6/uL (3.6-5.1); RED CELL DISTRIBUTION WIDTH 14.6 % (11.7-14.4)
[2019-02-09 06:12] LABS: ANION GAP 12.6 mmol/L (8-16); CHOL/HDL RATIO 5.6 (3.0-3.6); CREATININE, SERUM 3.61 mg/dL (0.57-1.11); MAGNESIUM 2.2 MG/DL (1.3-2.1); POTASSIUM 4.6 mmol/L (3.5-5.1)
[2019-02-09] MEDS: PANTOPRAZOLE SOD 40 MG TABEC PO SCH (06:13)
--- NOTE | 2019-02-09 06:15 | NUR ---
PT SLEPT DURING THE NIGHT AND DENIES PAIN .FAMILY AT THE BEDSIDE .CALL LIGHT WITH IN REACH FAMILY AT THE BEDSIDE .CONTINUE TO MONITOR
[2019-02-09 06:29] LABS: FERRITIN 511.1 ng/mL (4.63-204.00)
[2019-02-09] MEDS: CEFTRIAXONE SOD 1 GM/NS 50 ML 50 ML IV SCH (06:45)
--- NOTE | 2019-02-09 07:28 | NUR ---
BEDSIDE REPORT GIVEN TO THE ONCOMING NURSE .
[2019-02-09] MEDS: FUROSEMIDE INJ 10 MG/ML 4 ML VIAL IV SCH (08:15)
[2019-02-09] MEDS: PREDNISONE 10 MG TAB PO SCH (08:15)
[2019-02-09] MEDS ORDERED: SPIRONOLACTONE 25 MG TAB PO SCH (09:00)
--- NOTE | 2019-02-09 15:29 | Progress Note ---
DATE: 02/09/2019 Nephrology Progress Note SUBJECTIVE: The patient is doing well today with no complaints. She did not have any ascites to have a paracentesis performed. Her creatinine has actually gotten worse and we did discuss about a renal biopsy with the patient at bedside. PHYSICAL EXAMINATION: VITAL SIGNS: Temperature is 97.5, pulse is 100, respiratory rate is 18, blood pressure 143/76, and pulse ox 94% on room air. GENERAL: Not in acute distress. Alert and oriented x3. Cooperative on examination. HEENT: Head; normocephalic, atraumatic. Eyes; pupils are equal, round, and reactive to light bilaterally. Extraocular movements intact bilaterally. Throat; no evidence of erythema or exudates in the posterior pharynx. Has poor dentition. NECK: Supple. Good range of motion. PULMONARY: Clear to auscultation bilaterally. No wheezing, no rales, no rhonchi, no crackles appreciated. CARDIOVASCULAR: Positive S1 and S2. No murmurs, rubs, or gallops appreciated. ABDOMEN: Soft, nondistended, and nontender to palpation. Bowel sounds present. MUSCULOSKELETAL: Strength is 5/5 throughout. No evidence of any muscle deficits on examination. No weakness appreciated. NEUROLOGIC: Cranial nerves II through XII grossly intact. No evidence of any neurological deficits on exam. SKIN: Intact. Warm to touch. Good cap refill. PSYCHIATRIC: Normal affect and mood. EXTREMITIES: No edema. Good range of motion throughout. LABORATORY FINDINGS: Show white count was 6.5, hemoglobin 7.9, hematocrit is 24, and platelets of 53. Coagulation; PT 14, INR 1, and PTT 27. Chemistry; sodium 140, potassium 4.6, chloride 112, bicarb 20, anion gap of 12, BUN 50, and creatinine is 3.6, which has been elevated. Magnesium 2.2. Several serologies are pending including SPEP, UPEP. Alpha fetoprotein was 4.9. Iron saturation was 64%. Urinalysis noted 2 g proteinuria. Immunology; C3 is 72 down, C4 is 25. Double-stranded DNA is less than 1. P-ANCA and c-ANCA, TOMMY all pending. Urine immunofixation pending. [place]-lambda ratio is pending. Serologies, hepatitis is negative. HIV negative. MICROBIOLOGY: Blood and urine cultures, no growth to date. IMAGING STUDIES: Renal ultrasound noted to show a left kidney of 9 cm, right kidney 9.4 cm. There is no hydronephrosis or obstruction. IMPRESSION: 1. Acute kidney injury on chronic kidney disease, concerning for hepatorenal syndrome type 2. 2. Acute colitis. 3. Liver cirrhosis, unknown etiology. 4. Hypoalbuminemia with nonnephrotic range proteinuria. 5. Hyperuricemia. PLAN: At this time, I did review the serologies ordered. C4 is low. C3 is normal. Hepatitis panel negative. HIV is negative. P and c-ANCA, anti-GBM, and TOMMY are all pending. Renal ultrasound reviewed, shows small kidneys, but no evidence of chronicity. After reviewing the patient's labs back in June of 2018 at [facility], the patient had a creatinine of 1.2 and 1.3 at that time. Since then, I do not have any other labs to compare, but she has progressively gotten worse in terms of her renal function. I suspect that the patient likely has hepatorenal syndrome type 2 due to her liver cirrhosis. She has been known about for significant number of years. There are several serologies pending including UPEP, SPAP as well as a free light chain, kappa-lambda. Hematology/Oncology has been consulted. They will follow this as well very closely. I did discuss with her about a possible renal biopsy and that she will have to think about it today and possibly will see we can intervene on tomorrow. In addition, she does get a renal biopsy. She will follow up very closely as an outpatient with us in the office, which she verbalized understanding. At this time, her creatinine did get worse at 3.6. I am going to repeat labs in the morning. If she continues to increase up, we will have to really consider renal biopsy and possibly hemodialysis. The patient verbalized understanding and agreed to plan of care described above. MD ESLY Wiggins/SHERI /[id number]
--- NOTE | 2019-02-09 20:16 | NUR ---
RECEIVED PT IN BED AOX3 .DENIES PAIN.NO ACUTE DISTRESS NOTED .CALL LIGHT WITH IN REACH .CONTINUE TO MONITOR
[2019-02-10] VITALS (8 sets, daily range): BP systolic 99–154; BP diastolic 60–83
[2019-02-10 06:01] LABS: BASOPHILS % 0.1 % (0.0-1.0); EOSINOPHILS # (AUTO) 0.1 (0.0-0.4); HEMOGLOBIN 7.7 g/dL (12.0-16.0); LYMPHOCYTES # (AUTO) 1.7 (1.0-3.2); LYMPHOCYTES % 25.1 % (18.0-39.1); MEAN CORPUSCULAR HEMOGLOBIN 30.6 pg (28-32); MEAN CORPUSCULAR HGB CONC 33.5 g/dL (31-35); MEAN CORPUSCULAR VOLUME 91.3 fL (81-99); MONOCYTES # (AUTO) 0.7 (0.2-0.8); MONOCYTES % 10.3 % (4.4-11.3); NEUTROPHILS # (AUTO) 4.3 (2.1-6.9); NEUTROPHILS % 62.1 % (38.7-80.0); RED BLOOD COUNT 2.52 x10e6/uL (3.6-5.1); RED CELL DISTRIBUTION WIDTH 14.4 % (11.7-14.4)
[2019-02-10] MEDS: PANTOPRAZOLE SOD 40 MG TABEC PO SCH (06:03)
[2019-02-10] MEDS: CEFTRIAXONE SOD 1 GM/NS 50 ML 50 ML IV SCH (06:03)
[2019-02-10 06:19] LABS: PLATELET COUNT 48 x10e3/uL (140-360)
[2019-02-10 06:22] LABS: ANION GAP 14.4 mmol/L (8-16); CALCIUM 7.8 mg/dL (8.4-10.2); CREATININE, SERUM 3.91 mg/dL (0.57-1.11); POTASSIUM 4.4 mmol/L (3.5-5.1)
--- NOTE | 2019-02-10 06:50 | NUR ---
LAB CALLED HGB IS 7.7 AND PLT IS [address] MICHELLE PERALTA AND NOTIFIED THE VALUES .NO ORDER GIVEN NOW .WAITING FOR THE ORDER
[2019-02-10] MEDS ORDERED: BISACODYL 10 MG SUPP PR ONE (07:00)
--- NOTE | 2019-02-10 07:00 | NUR ---
PATIENT IS AWAKE, ALERT, AND IN STABLE CONDITION WITH NO S/S OF RESPIRATORY DISTRESS. NO PAIN VOICED. TELEMETRY APPLIED. FAMILY MEMBER PRESENT IN ROOM. CALL LIGHT IS WITHIN REACH, PATIENT INSTRUCTED TO CALL FOR ASSISTANCE NEEDED.
--- NOTE | 2019-02-10 07:21 | NUR ---
BEDSIDE REPORT GIVEN TO THE ONCOMING NURSE
--- NOTE | 2019-02-10 11:13 | NUR ---
PATIENT OFF THE UNIT PER BED TO ENDO- PATIENT IN STABLE CONDITION WITH NO S/S OF RESPIRATORY DISTRESS. NO PAIN VOICED. TELEMETRY APPLIED.
--- NOTE | 2019-02-10 13:02 | NUR ---
PATIENT BACK ON THE UNIT PER BED FROM RECOVERY. PATIENT IN STABLE CONDITION WITH NO S/S OF RESPIRATORY DISTRESS. NO PAIN VOICED. TELEMETRY APPLIED. BED ALARM APPLIED. PATIENT HAS A LUNCH TRAY AVAILABLE AND WILL EAT. CALL LIGHT IS WITHIN REACH, PATIENT INSTRUCTED TO CALL FOR ASSISTANCE NEEDED.
[2019-02-10] MEDS ORDERED: PROPOFOL IV EMULSION 10 MG/ML 50 ML VIAL ONE (13:44)
[2019-02-10] MEDS: PREDNISONE 10 MG TAB PO SCH (13:52)
[2019-02-10] MEDS ORDERED: POLYETHYLENE GLYCOL 3350 17 GM PACK PO PRN (14:00)
[2019-02-10] MEDS ORDERED: FENTANYL CITRATE/PF 100MCG/2 ML INJ ONE (15:09)
--- NOTE | 2019-02-10 16:28 | Progress Note ---
DATE: 02/10/2019 Nephrology Progress Note SUBJECTIVE: The patient's renal function has gotten worse. She is in the process of getting an EGD later today. PHYSICAL EXAMINATION: VITAL SIGNS: She is afebrile, pulse 93, respiratory rate is 20, blood pressure is 105/59, and pulse ox 98% on room air. GENERAL: Not in acute distress. Alert and oriented x3. Cooperative on examination. HEENT: Head; normocephalic and atraumatic. Eyes; pupils are equal, round, and reactive to light bilaterally. Extraocular movements intact bilaterally. Throat; no evidence of erythema or exudates in the posterior pharynx. Has poor dentition. NECK: Supple. Good range of motion. PULMONARY: Clear to auscultation bilaterally. No wheezing, no rales, no rhonchi, no crackles appreciated. CARDIOVASCULAR: Positive S1 and S2. No murmurs, rubs, or gallops appreciated. ABDOMEN: Soft, nondistended, and nontender to palpation. Bowel sounds present. MUSCULOSKELETAL: Strength is 5/5 throughout. No evidence of any muscle deficits on examination. No weakness appreciated. NEUROLOGIC: Cranial nerves II through XII grossly intact. No evidence of any neurological deficits on exam. SKIN: Intact. Warm to touch. Good cap refill. PSYCHIATRIC: Normal affect and mood. EXTREMITIES: No edema. Good range of motion throughout. LABORATORY DATA: Labs reviewed. CBC shows platelets of 48, hemoglobin 7.7. Chemistry reviewed, shows creatinine worsening at 3.9, rest of electrolytes are stable, bicarb is 18, BUN is 52. IMPRESSION: 1. Acute kidney injury on chronic kidney disease, concerning for underlying hepatorenal syndrome type 2 with worsening renal function. 2. Acute colitis. 3. Liver cirrhosis, with unknown etiology. 4. Hypoalbuminemia with nonnephrotic range proteinuria. 5. Hyperuricemia. 6. Thrombocytopenia. 7. Anemia. PLAN: At this time, several serologies are still pending. P-ANCA, c-ANCA, SPEP, UPEP still all pending. Free kappa lambda chain is pending. From a renal standpoint, kidney function has gotten worse. I feel like that the patient will likely now need a renal biopsy and possibly she will need some hemodialysis at some point during her hospital stay here. I feel like this is likely hepatorenal syndrome type 2. Renal biopsy to be very helpful in this case, which I discussed this with the family and they would like to think about it at this time. At this time, we will continue to monitor very closely. If the renal function is worse tomorrow, I will highly consider a renal biopsy as well as initiation of hemodialysis. Family would like to think about it. We will continue to follow with them. MD ELSY Wiggins/SHERI /[id number]
--- NOTE | 2019-02-10 16:44 | NUR ---
Nutrition Screen Note RD Recommendation for Physician: -Continue current diet per MD. Plan of Care: RD following, monitoring for tolerance and adequacy. Education provided. Nutrition reason for involvement: MD Consult-diet education Primary Diagnose(s): Ascites, colitis PMH: Ht: in Wt:lb BMI: kg/m2 IBW:lb RD Assessment: (02/10): 68 YOF admitted for ascities, colitis with PMH listed above. Received consult for diet education regarding the pt. Per MD note-the pt has acute kidney injury on chronic kidney disease, concerning for underlying hepatorenal syndrome type 2 with worsening renal function and the pt also has liver cirrhosis. Spoke extensively with the pt regarding proper diet for renal and cirrhosis patients. There is a possibility of starting the pt on HD. Provided the pt with numerous packets (low phos, low potass and low na foods). Also educated the pt on reading the food label and gave grocery shopping tips. Pt reported her appetite has been poor for a couple of months, but was unaware of any weight loss d/t her fluid accumulation. Pt denied N/V/C/D/chewing or swallowing issues as well as any food allergies. Chart reviewed. Labs and meds reviewed. Also directed the pt to outpatient counseling for nutrition if she would like to receive additional education. Pt had EGD today. Will continue to monitor. Current Diet: She has rheumatoid arthritis, hypertension, history of ascites, and lower extremity edema. Malnutrition Evaluation 02/10 The patient does not meet criteria for a specified degree of malnutrition at this time. Will re-evaluate at follow-up as appropriate. Energy intake: <50% of estimated energy requirements for >1 month Weight loss: -unable to evaluate Diet Education Needs Assessment: Diet education indicated, pt accepted. Diet Adequacy: (Meeting calorie needs, Meeting protein needs Learner(s): pt Barriers: none Cultural/Language Modifications: none Readiness: acceptance Method: discussion, handout Topics: Renal and Cirrhosis MNT (reading the food label, foods recommended and not recommended, grocery shopping tips, meal plans, etc.) Understanding/Compliance: verbalized understanding, anticipate good compliance Nutrition Care Level: low Signed: Anh Haley, RD, LD
--- NOTE | 2019-02-10 17:32 | Operative Report ---
DATE OF PROCEDURE: 02/10/2019 SURGEON: Darion Flores MD PROCEDURE: EGD with biopsies. INDICATIONS FOR EGD: Upper abdominal pain, anemia. MEDICATIONS: The patient was done under MAC, please see anesthesiologist's note. PROCEDURE IN DETAIL: With the patient in the left lateral decubitus position, a flexible fiberoptic Olympus gastroscope was introduced into the esophagus under direct visualization without any difficulty. Several esophageal rings were noted, which were traversed with ease with the scope. There was some patchy erythema noted in distal esophagus. The scope was then advanced with ease into the stomach traversing a moderate-sized hiatal hernia. Mucosa overlying the antrum and the body revealed some diffuse erythema and leeo-tq-ubaarukl edema, and biopsies were obtained and sent to stain for H. pylori. The pylorus was of normal contour and shape. It was intubated with ease and the scope was advanced all the way to the second portion of the duodenum. The scope was then withdrawn slowly and the mucosa overlying the proximal second portion and duodenal bulb appeared to be within normal limits. The scope was then withdrawn back into the stomach and retroflexed, and mucosa overlying the fundus appeared to be within normal limits. The previously described hiatal hernia was also noted in the retroflexed position. The scope was then straightened out, it was subsequently withdrawn, and the patient tolerated the procedure well. IMPRESSION: 1. Distal esophagitis, mild. 2. Esophageal rings, several traversed with ease with the scope. 3. Moderate-sized hiatal hernia. 4. Gastritis, biopsied, biopsies sent to stain for Helicobacter pylori. PLAN: Follow up histology. Initiate Protonix 40 mg 1 p.o. q.a.m. before meals. The patient might benefit from a colonoscopy, which can be done as outpatient electively as current findings do not necessarily explain her anemia. Darion Flores MD [facility] [place]/MODL /[id number] cc: Bassam Wooten MD
--- NOTE | 2019-02-10 19:25 | NUR ---
PATIENT IS IN STABLE CONDITION WITH NO S/S OF RESPIRATORY DISTRESS- NO PAIN VOICED. TELEMETRY APPLIED. PATIENT AWARE SHE WILL BE NPO BY MIDNIGHT. CALL LIGHT IS WITHIN REACH, PATIENT INSTRUCTED TO CALL FOR ASSISTANCE NEEDED. REPORT GIVEN TO ONCOMING NURSE.
--- NOTE | 2019-02-10 19:40 | NUR ---
RECEIVED PT WALKING IN THE ROOM .PT HAD EGD TODAY NOTED ESOPHAGITIS AND HIATAL HERNIA PT IS NPO AFTER MIDNIGHT FOR RENAL BIOPSY
[2019-02-11] VITALS (8 sets, daily range): BP systolic 119–161; BP diastolic 59–67
--- NOTE | 2019-02-11 00:15 | Consultation ---
DATE OF CONSULTATION: 02/10/2019 REASON FOR CONSULTATION: Peripheral edema. CHIEF COMPLAINT: Abdominal pain. HISTORY OF PRESENT ILLNESS: This is a 68-year-old female with history of autoimmune hepatitis, hypertension, rheumatoid arthritis, hyperlipidemia. The patient presents to [facility] ER with complaints of abdominal pain and cramping x2 weeks to about a month with reported gummy like diarrhea. Therefore, the patient came to the ER for further evaluation. The patient underwent an imaging showing colitis on CT scan also showing liver cirrhosis. The patient underwent EGD today in which the patient was found to have esophagitis/gastritis and moderate hiatal hernia. On labs the patient was noted with acute on chronic kidney disease with a creatinine of 3.0, BUN 47. Nephrology on the case. The patient noted with peripheral edema. Cardiology was consulted to evaluate the patient. The patient is seen in room in no acute distress, reports for the past several weeks abdominal pain, cramping, and most recently, she has diarrhea, so therefore came to the ER for further evaluation. Denies any chest pains or shortness of breath. Reports she was never told that she had kidney issues. However, she has had autoimmune hepatitis for over 20 years. PAST MEDICAL HISTORY: Autoimmune hepatitis, rheumatoid arthritis, hypertension, reflux disease. SURGICAL HISTORY: , cholecystectomy, tonsillectomy. FAMILY HISTORY: Mother apparently history of diabetes and coronary artery disease. His father history of Alzheimer's dementia. SOCIAL HISTORY: She is . She is a retired psychiatric nurse. She denies any alcohol use or tobacco use. ALLERGIES: TOFACITINIB. REVIEW OF SYSTEMS: GENERAL: Denies any weight changes, fatigue, weakness, fevers, chills, or night sweats. SKIN: Denies any rashes or sores. HEENT: Denies any nausea or vomiting, blurry vision. Denies vertigo, earaches, stuffiness, sneezing, epistaxis, bleeding gums, sore throat. CARDIAC: Denies any palpitations, chest pain, orthopnea, PND. Positive for lower extremity edema. Positive for dyspnea on exertion. RESPIRATORY: Denies any shortness of breath, wheezing, coughing, hemoptysis. GI: Reports good appetite. Denies any nausea, vomiting, constipation. Positive for diarrhea. Denies any melena, however, does report occasional bloody stools secondary to hemorrhoids. URINARY: Denies any frequency or urgency. VASCULAR: Positive for lower extremity edema. Denies any claudication. MUSCULOSKELETAL: Positive for generalized joint pains and swelling. NEUROLOGIC: Denies any tingling, tremors, weakness, paralysis, seizures. HEMATOLOGY: Denies any anemia or easy bruising. ENDOCRINE: Denies any heat or cold intolerance, polyuria, polydipsia. PHYSICAL EXAMINATION: VITAL SIGNS: Height 62 inches, weight 170 pounds, BMI 30. Temperature 96.8, pulse 91, respiratory rate 19, blood pressure 129/61, pulse ox 93 percent on room air. GENERAL: In no acute distress. Reliable informant. SKIN: No rashes, bruises noted. HEENT: Normocephalic. Pupils equal, reactive. Extraocular motor intact. NECK: Trachea midline. No JVD. No thyromegaly. Oral mucosa pink. No carotid bruits noted. HEART: Regular rate, rhythm. PMI 4th 5th intercostal space. LUNGS: Bilateral breath sounds clear to auscultation. Good airway entry. ABDOMEN: Soft, nontender, and nondistended. No organomegaly noted. MUSCULOSKELETAL: Good muscle strength throughout. Noted joint deformities. VASCULAR : +2 radial pulses, +1 DP, PT pulses bilaterally. Positive lower extremity edema. NEUROLOGIC: Cranial nerves II through XII seem intact. LABORATORY DATA: Sodium 141, potassium 4.8, chloride 113, bicarb 18, BUN 47, creatinine 3.0, GFR 18, A1c 4.3, total bilirubin 1.6, direct bilirubin is 0.9, AST 55, ALT 33, alkaline phosphatase 112, albumin 2.3. TSH 3.8, LDL 225, HDL 54. White count 6, hemoglobin of 7.7, hematocrit 23, platelets 48. PT 14, INR 1, PTT 27. Chest x-ray showing bilateral interstitial edema with small bilateral pleural effusions. CT abdomen showing colitis and liver cirrhosis. EKG showing normal sinus rhythm. ASSESSMENT AND PLAN: 1. Abdominal pain/colitis, status post EGD showing esophagitis and gastritis. 2. Chronic kidney disease. 3. Nephrotic syndrome. 4. Autoimmune hepatitis. 5. Liver cirrhosis. 6. Thrombocytopenia. 7. Anemia. 8. Peripheral edema secondary to nephrotic syndrome. 9. Hyperlipidemia. PLAN: The patient initially presents with abdominal discomfort, noted colitis on imaging, status post EGD showing gastritis and esophagitis. The patient with significant lower extremity edema with abnormal renal/liver function peripheral edema secondary for hepatorenal syndrome. Most likely, however, we will do echo to evaluate heart function and structure. We will continue to monitor the patient and further recommendations as clinical course dictates. Thank you very much for this consult. Dictated by Dajuan Thompson NP Mireya Lassiter MD [place]/MODL /[id number]
[2019-02-11 03:54] LABS: BASOPHILS % 0.1 % (0.0-1.0); EOSINOPHILS # (AUTO) 0.1 (0.0-0.4); EOSINOPHILS % 0.8 % (0.0-6.0); HEMOGLOBIN 7.7 g/dL (12.0-16.0); LYMPHOCYTES # (AUTO) 1.3 (1.0-3.2); LYMPHOCYTES % 17.9 % (18.0-39.1); MEAN CORPUSCULAR HEMOGLOBIN 30.3 pg (28-32); MEAN CORPUSCULAR HGB CONC 33.8 g/dL (31-35); MEAN CORPUSCULAR VOLUME 89.8 fL (81-99); MONOCYTES # (AUTO) 0.6 (0.2-0.8); MONOCYTES % 8.7 % (4.4-11.3); NEUTROPHILS # (AUTO) 5.3 (2.1-6.9); NEUTROPHILS % 72.1 % (38.7-80.0); PLATELET COUNT 55 x10e3/uL (140-360); RED BLOOD COUNT 2.54 x10e6/uL (3.6-5.1); RED CELL DISTRIBUTION WIDTH 14.5 % (11.7-14.4)
[2019-02-11 04:01] LABS: HEMATOCRIT 22.8 % (34.2-44.1)
[2019-02-11 04:15] LABS: ANION GAP 12.8 mmol/L (8-16); CALCIUM 7.6 mg/dL (8.4-10.2); CREATININE, SERUM 3.73 mg/dL (0.57-1.11); MAGNESIUM 2.2 MG/DL (1.3-2.1); POTASSIUM 4.8 mmol/L (3.5-5.1)
--- NOTE | 2019-02-11 05:39 | NUR ---
PT RESTED DURING THE NIGHT .DENIES PAIN PT IS NPO FOR RENAL BIOPSY.CALL LIGHT WITH IN REACH .CONTINUE TO MONITOR
[2019-02-11] MEDS: PANTOPRAZOLE SOD 40 MG TABEC PO SCH (06:00)
--- NOTE | 2019-02-11 07:09 | NUR ---
BEDSIDE REPORT GIVEN TO THE ONCOMING NURSE
[2019-02-11] MEDS ORDERED: HYDRALAZINE HCL 20 MG/ML VIAL IV PRN (07:45)
--- NOTE | 2019-02-11 08:26 | NUR ---
PATIENT OFF THE UNIT PER WHEELCHAIR FOR BIOPSY PROCEDURE. PATIENT IN STABLE CONDITION WITH NO S/S OF RESPIRATORY DISTRESS.
[2019-02-11] MEDS ORDERED: LIDOCAINE HCL 1% LOCAL INJ 20 ML VIAL ONE (08:33)
[2019-02-11] MEDS: PREDNISONE 10 MG TAB PO SCH (09:55)
--- NOTE | 2019-02-11 19:37 | NUR ---
PATIENT IS IN STABLE CONDITION WITH NO S/S OF RESPIRATORY DISTRESS. PATIENT DENIES PAIN. TELEMETRY APPLIED. CALL LIGHT IS WITHIN REACH, PATIENT INSTRUCTED TO CALL FOR ASSISTANCE NEEDED. REPORT GIVEN TO ONCOMING NURSE.
--- NOTE | 2019-02-11 19:54 | NUR ---
RECEIVED PT IN BED .NO ACUTE DISTRESS NOTED .FAMILY AT THE BEDSIDE .CALL LIGHT WITH IN REACH .CONTINUE TO MONITOR .CALL LIGHT WITH IN REACH .CONTINUE TO MONITOR
[2019-02-11 20:08] LABS: ANION GAP 16.6 mmol/L (8-16); CALCIUM 7.9 mg/dL (8.4-10.2); CREATININE, SERUM 3.89 mg/dL (0.57-1.11); POTASSIUM 4.6 mmol/L (3.5-5.1)
[2019-02-11] MEDS ORDERED: SODIUM CHLORIDE 0.9% 250ML 250 ML IV ONE (21:45)
[2019-02-12] VITALS (7 sets, daily range): BP systolic 116–134; BP diastolic 60–73
--- NOTE | 2019-02-12 00:45 | Progress Note ---
DATE: 02/11/2019 Nephrology Progress Note. SUBJECTIVE: The patient went downstairs to get a renal biopsy, but because the patient has low platelets and low hemoglobin, it was actually canceled. Her creatinine did downtrend to 3.7. She is otherwise doing well with no complaints. I did discuss with her about why we held a diuretic, rise in creatinine. PHYSICAL EXAMINATION: VITAL SIGNS: Temperature is 98.6, pulse 99, respiratory rate is 20, blood pressure 134/66, pulse ox 98% on room air. GENERAL: Not in acute distress. Alert and oriented x3. Cooperative on examination. Head is normocephalic, atraumatic. Eyes; pupils are equal, round, and reactive to the light bilaterally. Extraocular movement are intact. NECK: Supple. Good range of motion. Throat, no evidence of any erythema or exudates in the posterior pharynx. Has poor dentition. PULMONARY: Clear to auscultation bilaterally. No wheezing, rales, or rhonchi. No crackles appreciated. CARDIOVASCULAR: Positive S1, S2. No murmurs, rubs, or gallops. ABDOMEN: Soft, nondistended, and nontender to palpation. Bowel sounds present. MUSCULOSKELETAL: Strength is 5/5 throughout. No evidence of muscle deficits on examination. No weakness appreciated. NEUROLOGICAL: Cranial nerve II through XII grossly intact. No evidence of any neurological deficits on exam. SKIN: Intact. Warm to touch. Good cap refill. PSYCHIATRIC: Normal affect and mood. EXTREMITIES: No edema. Good range of motion throughout LABORATORY DATA: Labs show white count was 7.3, hemoglobin 7.7, hematocrit 22.8, platelets of 55. Sodium 139, potassium 4.6, chloride 111, bicarb 16, anion gap of 16, BUN 24, creatinine is 3.89, glucose is 116, calcium is 7.9, iron saturation 64%. UPEP and SPEP also pending. Microbiology noted. IMPRESSION: 1. Acute kidney injury on chronic kidney disease, concerning for underlying hepatorenal syndrome type 2 and possibly underlying acute tubular necrosis due to hypotension. 2. Acute colitis. 3. Liver cirrhosis of unknown etiology. 4. Hypoalbuminemia with nonnephrotic range proteinuria. 5. Hyperuricemia. 6. Thrombocytopenia. 7. Anemia. PLAN: At this time several serologies are pending including p-ANCA and c-ANCA, SPEP, UPEP. TOMMY was negative. [place] light chain ratio was pending. Urine protein electrophoresis shows an apparent normal immunofixation pattern. The patient did go for renal biopsy today, but because she was anemic and thrombocytopenic, the radiologist canceled the procedure. We will give some blood products tonight including platelets and hopefully get a renal biopsy on tomorrow before the holiday. MD ELSY Wiggins/MODL /[id number]
[2019-02-12] MEDS ORDERED: SODIUM CHLORIDE 0.9% 250ML 250 ML ONE ×2 (01:39→04:41)
[2019-02-12] MEDS: PANTOPRAZOLE SOD 40 MG TABEC PO SCH (06:00)
--- NOTE | 2019-02-12 07:04 | NUR ---
GIVEN I UNIT OF PRBC AND I BAG OF PLATELET .PT TOLERATED TRANSFUSION FO BLOOD AND PLATELET.PT RESTING PT IS NPO .CALL LIGHT WITH IN REACH BEDSIDE REPORT GIVEN TO THE ONCOMING NURSE
[2019-02-12 09:17] LABS: BASOPHILS % 0.4 % (0.0-1.0); HEMATOCRIT 29.5 % (34.2-44.1); HEMOGLOBIN 9.7 g/dL (12.0-16.0); LYMPHOCYTES # (AUTO) 0.3 (1.0-3.2); LYMPHOCYTES % 11.3 % (18.0-39.1); MEAN CORPUSCULAR HEMOGLOBIN 29.9 pg (28-32); MEAN CORPUSCULAR HGB CONC 32.9 g/dL (31-35); MONOCYTES % 0.4 % (4.4-11.3); NEUTROPHILS # (AUTO) 2.1 (2.1-6.9); NEUTROPHILS % 87.1 % (38.7-80.0); PLATELET COUNT 72 x10e3/uL (140-360); RED BLOOD COUNT 3.24 x10e6/uL (3.6-5.1); RED CELL DISTRIBUTION WIDTH 14.6 % (11.7-14.4)
[2019-02-12 09:40] LABS: ANION GAP 14.2 mmol/L (8-16); CALCIUM 7.9 mg/dL (8.4-10.2); CREATININE, SERUM 3.7 mg/dL (0.57-1.11); POTASSIUM 4.2 mmol/L (3.5-5.1)
--- OUTSIDE RECORDS SUMMARY | 2019-02-12 12:09 | XMS REPORT ---
Author Author [facility] Organization [facility] Address Unknown Phone Unavailable Care Team Providers Care Petal Cutter Name Role Phone JONATHAN ESPAÑA Unavailable Unavailable Jennifer STEWART Unavailable Unavailable Lorene FRANCOIS Unavailable Unavailable Payers Payer Name Policy Type Policy Number Effective Date Expiration Date Problems This patient has no known problems. Allergies, Adverse Reactions, Alerts Allergy Name Allergy Type Status Severity Reaction(s) Onset Date Inactive Date Treating Clinician Comments No Known Intolerances DA Active U 2009-06-29 00:00:00 Medications This patient has no known medications. Encounters Start Date/Time End Date/Time Encounter Type Admission Type Attending Clinicians Care Facility Care Department Encounter ID 2019-01-12 07:17:00 2019-01-12 07:17:00 Outpatient [facility] [id number] Results Test Description Test Time Test Comments Text Results Atomic Results Result Comments US RENAL RETROPERITONEAL COMP 2019-02-08 13:19:00 [place] [address] Patient Name: LAINA BINGHAM MR #: [id number] : 1950 Age/Sex: 68/F Req #: [id number] Adm Physician: JONATHAN ESPAÑA MD Ordered by: IVETTE WHITE MD Report #: [id number] Location: MED/SURG3 Room/Bed: [facility] Procedure: [id number] US/US RENAL RETROPERITONEAL COMP Exam Date: 02/08/19 Exam Time: 1243 REPORT STATUS: Signed EXAM: Renal Ultrasound INDICATION: renal failure [id number] COMPARISON: None TECHNIQUE: Transverse and longitudinal images of the kidneys and bladder were obtained. FINDINGS: Right Kidney: Length: 9.4 cm Appearance: Normal echogenicity. Collecting system: No hydronephrosis Stones: None Cyst/Mass: None Left Kidney: Length: 9.0 cm Appearance: Normal echogenicity. Collecting system: No hydronephrosis Stones: None Cyst/Mass: None Bladder: No mass or calculi. Ureteral jets not visualized. Prevoid volume estimate of 42 cc. IMPRESSION: No renal mary kate culi or hydronephrosis. Signed by: Chan Sam MD on 02/08/2019 1:20 PM Dictated By: CHAN SAM MD 1320 Transcribed By: GENA on 02/08/19 1320 COPY TO: IVETTE WHITE MD US ABDOMEN LIMITED 2019-02-08 13:17:00 [place] [address] Patient Name: LAINA BINGHAM MR #: [id number] : 1950 Age/Sex: 68/F Req #: [id number] Adm Physician: JONATHAN ESPAÑA MD Ordered by: Johny Rose BEER MERCHANT Report #: [id number] Location: MED/SURG3 Room/Bed: [facility] Procedure: [id number] US/US ABDOMEN LIMITED Exam Date: 02/08/19 Exam Time: 1253 REPORT STATUS: Signed EXAM: Focused Ultrasound Evaluation of the abdomen INDICATION: Ascites COMPARISON: None TECHNIQUE: Saenz scale images of all 4 quadrants of the abdomen were obtained. FINDINGS: No abdominal ascites. IMPRESSION: No ascites. The requested paracentesis is thus not possible. Signed by: Chan Sam MD on 02/08/2019 1:19 PM Dictated By: CHAN SAM MD 18 Transcribed By: GENA on 02/08/191318 COPY TO: JOHNY ROSE NP CT ABD/PEL WO CONTRAST-HOPD 2019-02-06 18:43:00 [place] [address] Patient Name: LAINA BINGHAM MR #: [id number] : 1950 Age/Sex: 68/F Req #: [id number] Adm Physician: Ordered by: HAO ACUNA MD Report #: [id number] Location: [facility] Room/Bed: Procedure: [id number] HOPD/CT ABD/PEL WO CONTRAST-HOPD Exam Date: 02/06/19 Exam Time: 1806 REPORT STATUS: Signed EXAM: CT Abdomen and Pelvis WITHOUT contrast INDICATION: [id number] COMPARISON: KUB 01/03/2018 TECHNIQUE: Abdomen and pelvis were scanned utilizing a multidetector helical scanner from the lung base to the pubic symphysis without administration of IV contrast. Absence of intravenous contrast decreases sensitivity for detection of focal lesions and vascular pathology. Coronal and sagittal reformations were obtained. Routine protocol was performed. IV CONTRAST: None. ORAL CONTRAST: None RADIATION DOSE: Total DLP: 622 mGy*cm Estimated effective dose: (DLP x 0.015 x size factor) mSv COMPLICATIONS: None FINDINGS: LINES and TUBES: None. LOWER THORAX: Small bilateral pleural effusions. HEPATOBILIARY: Cirrhosis. No focal hepatic lesions on limited evaluation. No biliary ductal dilation. GALLBLADDER: Cholecystectomy. SPLEEN: No splenomegaly. PANCREAS: No focal masses or ductal dilatation. ADRENALS: No adrenal nodules KIDNEYS/URETERS: No hydronephrosis. No cystic or solid mass lesions. No stones. GI TRACT: Diffuse wall thickening of the ascending colon and cecum which may be reactive to the ascites and/or secondary to colitis. No bowel dilatation or obstruction. Appendix is normal. PELVIC ORGANS/BLADDER: Unremarkable. LYMPH NODES: No lymphadenopathy. VESSELS: Unremarkable. PERITONEUM / RETROPERITONEUM: No free air. Moderate low-attenuation ascites mainly in the perihepatic region and pelvis. BONES: Unremarkable. SOFT TISSUES: Unremarkable. IMPRESSION: 1. Moderate ascites with diffuse wall thickening of the ascending colon may be reactive or associated with superimposed colitis. No free air or abscess. The appendix appears normal. 2. Cirrhosis. Signed by: Dr. Madison Valentin M.D. on 02/06/2019 6:47 PM Dictated By: MADISON VALENTIN MD 46 Transcribed By: GENA on 02/06/191846 COPY TO: HAO ACUNA MD CXR 2 [facility] 2019-02-06 18:42:00 [place] [address] Patient Name: LAINA BINGHAM MR #: [id number] : 1950 Age/Sex: 68/F Req #: [id number] Adm Physician: Ordered by: HAO ACUNA MD Report #: [id number] Location: [facility] Room/Bed: Procedure: [id number] HOPD/CXR 2 VIEW - HOPD Exam Date: 02/06/19 Exam Time: 180 REPORT STATUS: Signed EXAM: PA and lateral views of the chest. COM PARISON: Chest radiograph 01/03/2018 CLINICAL HISTORY: [id number] FINDINGS: Lines/tubes: None. Lungs: Bilateral interstitial edema. Bibasilar atelectasis. Pleura: Small bilateral pleural effusions. No pneumothorax. Heart and mediastinum: Stable mild enlargement of the cardiac silhouette. Bones and soft tissues: No acute bony abnormalities. Surgical clips overlying the right upper quadrant. IMPRESSION: Interval development of bilateral interstitial edema with associated small bilateral pleural effusions. Signed by: Dr. Madison Valentin M.D. on 02/06/2019 6:43 PM Dictated By: MADISON VALENTIN MD 42 Transcribed By: GENA on 02/06/191842 COPY TO: HAO ACUNA MD - CT CHEST W/O CONTRAST 2018-11-20 15:08:00 Name: LAINA BINGHAM [facility] : 1950 Age/S: 68 / F [address] [facility] Unit #: [id number] Loc: [place] [address] Phys: Marcos Springer MD Acct: [id number] Dis Date: Status: REG CLI PHONE #: [phone] Exam Date: 11/20/2018 1245 FAX #: [phone] Reason: R06.09 OTHER FORMS OF DYSPNEA EXAMS: CPT CODE: [id number] CT CHEST W/O CONTRAST 83712 REASON FOR EXAM: R06.09 OTHER FORMS OF DYSPNEA EXAM ORDER DATE: 11/20/2018 12:34 PM Ordering MLopez: Marcos Springer MD PROCEDURE: - CT CHEST W/O CONTRAST Comparison:CT chest June 29, [address] images of the chest were obtained without contrast. Reconstructed sagittal and coronal images of the chest were provided for interpretation. Dose reduction techniques were applied. FINDINGS: The absence of IV contrast limits the sensitivity of this exam for detecting soft tissue pathology and differentiating atelectasis from consolidations. Visualized neck: Grossly normal Airways, Lungs and Pleura: Calcified granulomas present in the right lower lobe. There is mild subsegmental atelectasis in the lingula. Lungs are otherwise clear. Airways are patent. No pleural effusion or pneumothorax. Heart, great vessels, pulmonary vessels, mediastinum: Three-vessel coronary atherosclerosis. Scattered atherosclerotic plaques in the thoracic aorta. Normal caliber of the pulmonary trunk and ascending aorta. Mild pericardial thickening anteriorly. Cardiac chambers are within normal limits. Lymph nodes: No axillary, internal mammary, or mediastinal adenopathy. Calcified lymph nodes are present in the subcarinal station and right hilum. Further evaluation of hilar lymph nodes is limited due to the absence of IV contrast. Musculoskeletal/chest wall: Normal Visualized upper abdomen: Prior cholecystectomy. Nodular appearance of the liver. Small hiatal hernia. Gastroesophageal varices are present. Spleen is mildly enlarged. Calcified granulomas are present in the spleen. PAGE 1 Signed Report (CONTINUED) Name: LAINA BINGHAM [facility] : 1950 Age/S: 68 / F [address] [facility] Unit #: [id number] [place] [address] Phys: Marcos Springer MD Acct: [id number] Dis Date: Status: REG CLI PHONE #: [phone] Exam Date: 11/20/2018 1245 FAX #: [phone] Reason: R06.09 OTHER FORMS OF DYSPNEA EXAMS: CPT CODE: [id number] CT CHEST W/O CONTRAST 25671 <Continued> IMPRESSION: No acute intrathoracic process. Prior granulomatous disease. Three-vessel coronary atherosclerosis. Cirrhotic liver with gastroesophageal varices and splenomegaly suggesting portal venous hypertension. El ectronically Signed by Mike Sierra MD on 11/20/2018 at 1508 Reported and signed by: Mike Sierra MD CC: Marcos Springer MD; Brennen Mcneil Technologist:Camacho Burdick RT(R); Shawna Encarnacion CTDI: DLP: Trnscb Date/Time: 11/20/2018 (1508) [email or web address] Orig Print D/T: S: 11/20/2018 (3107) PAGE [address] BRAIN WO-HOPD 2018-01-10 23:04:00 [place] [address] Patient Name: LAINA BINGHAM MR #: [id number] : 1950 Age/Sex: 67/F Req #: [id number] Adm Physician: Ordered by: IRLANDA STEWART MD Report #: [id number] Location: [facility] Room/Bed: Procedure: [id number] HOPD/CT BRAIN WO-HOPD Exam Date: 01/10/18 Exam Time: 2250 REPORT STATUS: Signed History: Headache Comparison studies: None Technique: Axial images were obtained from the skull base to the vertex. Coronal and sagittal reconstructions obtained from the axial data. Dose modulation, iterative reconstruction, and/or weight based adjustment of the mA/kV was utilized to reduce the radiation dose to as low as reasonably achievable. Findings: Scalp/skull: No abnormalities. No fractures, blastic or lytic lesions. Extra-axial spaces: No masses. No fluid collections. Brain sulci: Appropriate for age. Ventricles: Normal in size and configuration. No hydrocephalus. Parenchyma: No abnormal densities. No masses, hemorrhage, acute or chronic cortical vascular insults. Sellar/suprasellar region: No abnormalities Craniocervical junction: Patent foramen magnum. No Chiari one malformation. Incidental findings: Atherosclerotic calcifications in the carotid siphons and right vertebral artery. IMPRESSION: No intracranial abnormalities. Signed by: Dr. Artie Clemens M.D. on 01/10/2018 11:06 PM Dictated By: ARTIE CLEMENS MD, MD 05 Transcribed By: GENA on 01/10/182305 COPY TO: IRLANDA STEWART MD ABDOMEN COMPLETE - HOPD 2018-01-03 20:16:00 [place] [address] Patient Name: LAINA BINGHAM MR #: [id number] : 1951 Age/Sex: 66/F Req #: [id number] Adm Physician: Ordered by: RENAN FRANCOIS MD Report #: [id number] Location: [facility] Room/Bed: Procedure: [id number] HOPD/ABDOMEN COMPLETE - HOPD Exam Date: 01/03/18 [...]
[2019-02-12] MEDS: ACETAMINOPHEN 325 MG TAB PO PRN (12:42)
[2019-02-12] MEDS: PREDNISONE 10 MG TAB PO SCH (12:43)
--- NOTE | 2019-02-12 12:46 | NUR ---
Radiology called and told they couldnt do biopsy since she is spiking temp 102F. Patient back in room , rechecked temp its 101.2, PRN Tylenol 650mg PO given, notified Ann Marie TAYLOR, New order to resume her diet, will recheck her temp in 30 min, patient up in bed, no distress noted
--- NOTE | 2019-02-12 13:14 | NUR ---
Rechecked T-99.0. Patient not in any distress
--- NOTE | 2019-02-12 14:20 | NUR ---
Notified Dr Bhatti regarding fever 101.2, new order to do Blood culture X1, urine cultureX1 and CXR
--- NOTE | 2019-02-12 16:41 | Diagnostic Imaging Report ---
EXAMINATION: CHEST 2 VIEWS INDICATION: Fever COMPARISON: Chest radiograph of 02/06/2019 FINDINGS: LINES/TUBES:EKG leads overlie the chest. LUNGS:The lungs are moderately inflated. No focal consolidation or pulmonary edema. Mild bibasilar subsegmental atelectasis. PLEURA:Trace bilateral pleural effusions. MEDIASTINUM:The cardiomediastinal silhouette appears unchanged in size and shape. BONES/SOFT TISSUES:No acute osseous injury. ABDOMEN:No free air under the diaphragm. IMPRESSION: Mild bibasilar subsegmental atelectasis. No focal pneumonia or pulmonary edema. Trace bilateral pleural effusion. Signed by: Caleb Dunn MD on 02/12/2019 4:38 PM
--- NOTE | 2019-02-12 19:23 | NUR ---
Received change of shift report from AM nurse. Walking rounds completed.
--- NOTE | 2019-02-12 23:52 | Progress Note ---
DATE: 02/12/2019 Nephrology Progress Note SUBJECTIVE: The patient is doing well today. She was scheduled to have a renal biopsy today, but she developed a fever in which the procedure was canceled by the radiologist. No overnight events. The patient is doing well today. LABORATORY FINDINGS: Show white count was 2.3, hemoglobin was 9.7, hematocrit 29.5, platelets was 72. Coagulation noted to be normal. Chemistry; sodium 136, potassium 4.2, chloride 111, bicarbonate 15, BUN is 52, creatinine is 3.7, down trending from yesterday from 3.89; calcium is 7.9. Urinalysis noted, several serologies are back. Immunofixation was found to be normal. TOMMY was negative. C-ANCA, p-ANCA negative. Atypical p-ANCA negative, double-stranded DNA negative. C3 is 72. The complement C3 was 25. [place]-lambda ratio was 1.46, within normal range. Blood cultures were negative. Urine cultures were negative. IMAGING STUDIES: Chest x-ray noted. PHYSICAL EXAMINATION: VITAL SIGNS: T-max was 100.1. Temperature 99, pulse 90, respiratory rate is 20, blood pressure 116/60, and pulse ox 100% on room air. GENERAL: Not in acute distress, alert and oriented x3. Cooperative on examination. HEENT: Head is normocephalic, atraumatic. Eyes; pupils are equal, round, and reactive to light bilaterally. Extraocular movements intact bilaterally. NECK: Supple. Good range of motion. Throat, no evidence of any erythema or exudates in the posterior pharynx. Has poor dentition. PULMONARY: Clear to auscultation bilaterally. No wheezing, rales, or rhonchi. No crackles appreciated. CARDIOVASCULAR: Positive S1 and S2. No murmurs, rubs, or gallops appreciated. ABDOMEN: Soft, nondistended, and nontender to palpation. Bowel sounds present. MUSCULOSKELETAL: Strength is 5/5 throughout. No evidence of any muscle deficits on examination. No weakness appreciated. NEUROLOGICAL: Cranial nerve 2 through 12 grossly intact. No evidence of any neurological deficits on exam. SKIN: Intact. Warm to touch. Good cap refill. PSYCHIATRIC: Normal affect and mood. EXTREMITIES: No edema. Good range of motion throughout. IMPRESSION: 1. Acute kidney injury on chronic kidney disease, stage 3, concerning for underlying hepatorenal syndrome type 2 and possibly acute tubular necrosis due to hypotension. 2. Acute colitis. 3. Liver cirrhosis, unknown etiology. 4. Hypoalbuminemia with non-nephrotic range proteinuria. 5. Hyperuricemia. 6. Thrombocytopenia. 7. Anemia. PLAN: At this time, all serologies were found to be negative including p-ANCA, c-ANCA, UPEP, TOMMY, and kappa-lambda ratio was found to be within normal range. Even the urine immunofixation was found to be negative. SPEP is still pending, but likely will be normal. Renal biopsy for some reason was canceled yesterday due to blood products. Platelets in anemia, which were replaced last night. Today, she was scheduled for renal biopsy and was canceled again due to a temperature of 100.1. The patient has no symptoms, has no fever. I do not know the reason why the radiologist canceled the procedure. It seems that the radiologist did not want to do the procedure from day one, even yesterday and today. I find that very unusual and possibly not acceptable. The patient will be here through the weekend and we will monitor her creatinine over the weekend. If it improves, we can possibly cancel the renal biopsy altogether, but if there is no improvement, the patient does need a renal biopsy prior to being discharged with close followup in the office. MD ELSY Wiggins/SHERI /[id number]
--- NOTE | 2019-02-13 | NUR ---
Patient [id number] family at bedside. Patient denies pain at this time. IV intact. Dr Flores on the floor to see patient. Patient resting quitly at this time. Continue monitor.
--- NOTE | 2019-02-13 01:00 | NUR ---
Patient AAOx3. C/O PYLE given meds as ordered by MD. Continue monitor.
[2019-02-13 04:00] VITALS: BP 123/60
[2019-02-13] MEDS: ACETAMINOPHEN 325 MG TAB PO PRN (05:10)
[2019-02-13 05:59] LABS: BASOPHILS % 0.2 % (0.0-1.0); EOSINOPHILS % 0.6 % (0.0-6.0); HEMATOCRIT 24.9 % (34.2-44.1); HEMOGLOBIN 8.5 g/dL (12.0-16.0); LYMPHOCYTES # (AUTO) 0.7 (1.0-3.2); LYMPHOCYTES % 10.9 % (18.0-39.1); MEAN CORPUSCULAR HEMOGLOBIN 29.7 pg (28-32); MEAN CORPUSCULAR HGB CONC 34.1 g/dL (31-35); MEAN CORPUSCULAR VOLUME 87.1 fL (81-99); MONOCYTES # (AUTO) 0.4 (0.2-0.8); MONOCYTES % 6.9 % (4.4-11.3); NEUTROPHILS # (AUTO) 5.2 (2.1-6.9); NEUTROPHILS % 80.9 % (38.7-80.0); PLATELET COUNT 61 x10e3/uL (140-360); RED BLOOD COUNT 2.86 x10e6/uL (3.6-5.1); RED CELL DISTRIBUTION WIDTH 14.6 % (11.7-14.4)
[2019-02-13] MEDS: PANTOPRAZOLE SOD 40 MG TABEC PO SCH (06:00)
[2019-02-13 06:19] LABS: CALCIUM 7.6 mg/dL (8.4-10.2); CREATININE, SERUM 4.75 mg/dL (0.57-1.11); MAGNESIUM 2.1 MG/DL (1.3-2.1)
[2019-02-13 06:32] LABS: ANION GAP 14.2 mmol/L (8-16)
[2019-02-13 06:34] LABS: POTASSIUM 5.2 mmol/L (3.5-5.1)
[2019-02-13 07:23] VITALS: BP 104/50
--- NOTE | 2019-02-13 08:15 | NUR ---
Notified Ann Marie TAYLOR regarding Potassium level 5.2, paged Renal Dr Bhatti, awaiting for orders
[2019-02-13 08:20] VITALS: BP 104/50
[2019-02-13] MEDS: PREDNISONE 10 MG TAB PO SCH (08:29)
[2019-02-13 11:30] VITALS: BP 117/61
[2019-02-13 15:38] VITALS: BP 107/59
[2019-02-13] MEDS: ALBUMIN 25% 25GM 100ML 0.25 GM/ML BTL IV SCH (17:43)
--- NOTE | 2019-02-13 18:33 | NUR ---
PT and MACHINIST INSTRUCTOR discussed care. Pt safe to be D/C'd from PT services. Safe to ambulate with family or nurse supervision using a RW. Pt will need a RW for home use. Addendum: 02/15/19 at 0743 by Chadd Cheema PT Amended: Links added.
--- NOTE | 2019-02-13 19:20 | NUR ---
Received change of shift report from AM nurse. Walking rounds completed.
[2019-02-13 20:00] VITALS: BP 152/69
[2019-02-14] VITALS (7 sets, daily range): BP systolic 120–178; BP diastolic 58–81
--- NOTE | 2019-02-14 00:18 | Progress Note ---
DATE: 02/13/2019 Medicine Progress Note SUBJECTIVE: The patient is doing well today with no other issues. She still has significant amount of lower extremity edema. Her renal function has actually gotten worse, 4.75 creatinine with potassium 5.2. She is not short of breath. No orthopnea. PHYSICAL EXAMINATION: VITAL SIGNS: Temperature is 97.9, pulse is 88, respiratory rate is 16, blood pressure is 107/59, pulse ox 97% on room air. GENERAL: No acute distress, alert and oriented x3. Cooperative on examination. HEENT: Normocephalic, atraumatic. Eyes; pupils are equal, round, and reactive to light bilaterally. Extraocular movements are intact. NECK: Supple. Good range of motion throughout. No evidence of erythema or exudates in the posterior pharynx. Has poor dentition. PULMONARY: Clear to auscultation bilaterally. No wheezing, rales, or rhonchi. No crackles appreciated. CARDIOVASCULAR: Positive S1, S2. No murmurs, rubs, or gallops appreciated. ABDOMEN: Soft, nondistended, nontender to palpation. Bowel sounds present. MUSCULOSKELETAL: Strength is 5/5 throughout. No evidence of any muscle deficits on examination. No weakness appreciated. NEUROLOGICAL: Cranial nerves II through XII are grossly intact. No evidence of any neurological deficits on exam. SKIN: Intact. Warm to touch. Good cap refill. PSYCHIATRIC: Normal affect and mood. EXTREMITIES: No edema. Good range of motion throughout. She has significant amount of 2 to 3+ pedal edema in bilateral lower extremities. LABORATORY FINDINGS: Show white count is 6.4, hemoglobin 8.5, hematocrit 25, platelets 61. Chemistry: Sodium is 137, potassium is 5.2, chloride is 111, bicarb is 17, anion gap of 14, BUN is 59, creatinine is 4.75, glucose is 83. Serologies were reviewed except hemochromatosis, results are pending. Microbiology, all cultures were negative. IMAGING STUDIES: None. IMPRESSION: 1. Acute kidney injury on chronic kidney disease stage 3, now worsening, concerns for hepatorenal syndrome type 2 and possibly underlying acute tubular necrosis due to hypotension. 2. Acute colitis. 3. Liver cirrhosis with unknown etiology. 4. Hypoalbuminemia with non-nephrotic range proteinuria. 5. Hyperuricemia. 6. Thrombocytopenia. 7. Anemia. PLAN: At this time, all serologies that were performed were found to be negative including p-ANCA, c-ANCA, UPEP, and kappa lambda ratio. Even the urine immunofixation was found to be negative. SPEP is still pending though. At this time due to the worsening renal function, I had a long discussion with the patient at bedside in which the patient will likely need a renal biopsy despite it was canceled on two occasions last week. I did add albumin 25 g IV q.6 hours x8 doses and added oral midodrine to maintain increased renal perfusion. I had a long discussion with the patient about possible temporary hemodialysis and she was in good spirits and she surely understands what is going on in terms of her overall renal failure. Otherwise, we will continue the same plan of care. Monitor closely. Get daily labs and monitor chemistry tomorrow. MD ELSY Wiggins/SHERI /[id number]
[2019-02-14] MEDS: PANTOPRAZOLE SOD 40 MG TABEC PO SCH (05:25)
[2019-02-14] MEDS: ALBUMIN 25% 25GM 100ML 0.25 GM/ML BTL IV SCH ×5 (05:25→23:15)
--- NOTE | 2019-02-14 06:34 | NUR ---
Patient resting quitly at this time. Continue monitor.
[2019-02-14 07:07] LABS: EOSINOPHILS # (AUTO) 0.1 (0.0-0.4); EOSINOPHILS % 2.2 % (0.0-6.0); LYMPHOCYTES # (AUTO) 0.8 (1.0-3.2); LYMPHOCYTES % 17.1 % (18.0-39.1); MEAN CORPUSCULAR HGB CONC 33.7 g/dL (31-35); MEAN CORPUSCULAR VOLUME 89.2 fL (81-99); MONOCYTES # (AUTO) 0.5 (0.2-0.8); NEUTROPHILS # (AUTO) 3.2 (2.1-6.9); NEUTROPHILS % 69.3 % (38.7-80.0); RED BLOOD COUNT 2.23 x10e6/uL (3.6-5.1); RED CELL DISTRIBUTION WIDTH 14.6 % (11.7-14.4)
[2019-02-14 07:29] LABS: HEMATOCRIT 19.9 % (34.2-44.1); HEMOGLOBIN 6.7 g/dL (12.0-16.0)
[2019-02-14 07:30] LABS: PLATELET COUNT 41 x10e3/uL (140-360)
[2019-02-14 07:32] LABS: ANION GAP 16.6 mmol/L (8-16); CALCIUM 7.7 mg/dL (8.4-10.2); CREATININE, SERUM 5.39 mg/dL (0.57-1.11); POTASSIUM 4.6 mmol/L (3.5-5.1)
[2019-02-14] MEDS: MIDODRINE 2.5 MG TAB PO SCH ×3 (09:06→16:51)
[2019-02-14] MEDS: PREDNISONE 10 MG TAB PO SCH (09:06)
--- NOTE | 2019-02-14 09:10 | NUR ---
The pt is awakw and alert and has requested that the wraps be placed later.
[2019-02-14] MEDS ORDERED: SODIUM CHLORIDE 0.9% 250ML 250 ML IV ONE (10:00)
[2019-02-14 10:04] LABS: LYMPHOCYTES % (MANUAL) 16 % (19-48); MONOCYTES % (MANUAL) 9 % (3.4-9.0); NEUTROPHILS % (MANUAL) 75 % (40-74)
[2019-02-14 10:05] LABS: PLATELET ESTIMATE MARKEDLY DECREASED; PLATELET MORPHOLOGY COMMENT NORMAL; RBC MORPHOLOGY COMMENT ABNORMAL
[2019-02-14 10:07] LABS: HYPOCHROMASIA MODERATE
[2019-02-14 10:08] LABS: ROULEAU MANY
[2019-02-14] MEDS: ONDANSETRON HCL INJ 2MG/ML 2ML 2 MG/ML VIAL IV PRN (11:48)
--- NOTE | 2019-02-14 14:40 | NUR ---
The pt. is receiving one unit of platelets and is to received rbcs when they are ready. No untoward reaction were noted..
--- NOTE | 2019-02-14 15:20 | NUR ---
Visit made by the Spiritual Care Department Pastoral Visitor, Mary Jane Cuevas. PV provided pastoral presence, hospitality, prayer, and supportive listening. Pastoral Visitor informed pt/family of the scope of [facility] and availability. RE BOONE [employer] Furnace Operator Spiritual Care Department O: [phone] Pager: [phone] ([phone] number calling from)
--- NOTE | 2019-02-14 21:00 | NUR ---
Received change of shift report from AM nurse. Walking rounds completed. Patient in bed with no c/o at this time. Family at bedside. Patient received 1 unit of blood. Azael did very well. Continue
--- NOTE | 2019-02-14 23:29 | Progress Note ---
DATE: 02/14/2019 Nephrology Progress Note SUBJECTIVE: The patient's renal function did not improve. Of note, it actually got worse. I had a long discussion with the patient at bedside and discussed with her that she will likely need to be started on temporary hemodialysis. She was receptive with that. I discussed the risks and benefits involved and hemodialysis and she verbalized understanding. Nurse was present throughout the entire conversation. LABORATORY DATA: Lab findings show hemoglobin is 6.7 today, hematocrit is 19.9, and platelets of 41. Coagulation PT INR is 1, PTT 27. Chemistry sodium 138, potassium 4.6, chloride 109, bicarb 17, anion gap is 16, BUN 68, creatinine 5.3, glucose is 77. PHYSICAL EXAMINATION: VITAL SIGNS: Temperature is 97.5, pulse 70, respiratory rate is 18, blood pressure 134/71, pulse ox 94% on room air. GENERAL: Not in acute distress. Alert and oriented x3. Cooperative on examination. HEENT: Head is normocephalic, atraumatic. Eyes; pupils are equal and reactive to light bilaterally. Extraocular movements are intact bilaterally. NECK: Supple. Good range of motion. Throat; no evidence of erythema or exudates in the posterior pharynx. Has poor dentition. PULMONARY: Clear to auscultation bilaterally. No wheezing, rales, or rhonchi. No crackles appreciated. CARDIOVASCULAR: Positive S1 and S2. No murmurs, rubs, or gallops appreciated. ABDOMEN: Soft, nondistended, nontender to palpation. Bowel sounds present. MUSCULOSKELETAL: Strength is 5/5 throughout. No evidence of muscle deficits on examination. No weakness appreciated. NEUROLOGICAL: Cranial nerves II through XII grossly intact. No evidence of any neurological deficits on exam. SKIN: Intact. Warm to touch. Good cap refill. PSYCHIATRIC: Normal affect and mood. EXTREMITIES: 2 to 3+ pedal edema in bilateral lower extremities. IMPRESSION: 1. Acute kidney injury, now with worsening renal function concerning for underlying hepatorenal syndrome x2 and possibly underlying acute tubular necrosis due to hypotension. 2. Acute colitis. 3. Liver cirrhosis, unknown etiology. 4. Hypoalbuminemia with nephrotic range proteinuria. 5. Hyperuricemia. 6. Thrombocytopenia. 7. Anemia. PLAN: Once again, all serologies performed were found to be negative. SPEP was still pending. Her renal function did not improve of note, it actually got worse. I did discuss with her about hemodialysis temporarily. She has agreed. I will have IR tomorrow place a tunneled dialysis catheter and if they can go ahead and get a renal biopsy they have canceled it twice last week unknown reasons. She is currently receiving blood products as well as platelet transfusions, which is being deferred to GI and hematology. But from a renal standpoint, she will truly benefit from hemodialysis after several treatments and then possibly getting a renal biopsy later in the week. She will need to increase ultrafiltration as well. We will have the dialysis nurse notified in the morning for HD treatment. MD ELSY Wiggins/SHERI /[id number]
[2019-02-14] MEDS ORDERED: SODIUM CHLORIDE 0.9% 50ML 50 ML ONE (23:53)
[2019-02-15] VITALS (8 sets, daily range): BP systolic 135–168; BP diastolic 59–84
[2019-02-15] MEDS: ALBUMIN 25% 25GM 100ML 0.25 GM/ML BTL IV SCH ×2 (06:00→12:00)
[2019-02-15] MEDS: PANTOPRAZOLE SOD 40 MG TABEC PO SCH (06:00)
[2019-02-15 06:19] LABS: BASOPHILS % 0.1 % (0.0-1.0); EOSINOPHILS # (AUTO) 0.1 (0.0-0.4); EOSINOPHILS % 0.8 % (0.0-6.0); HEMATOCRIT 26.5 % (34.2-44.1); HEMOGLOBIN 8.9 g/dL (12.0-16.0); LYMPHOCYTES # (AUTO) 1.2 (1.0-3.2); LYMPHOCYTES % 15.2 % (18.0-39.1); MEAN CORPUSCULAR HEMOGLOBIN 30.8 pg (28-32); MEAN CORPUSCULAR HGB CONC 33.6 g/dL (31-35); MEAN CORPUSCULAR VOLUME 91.7 fL (81-99); MONOCYTES # (AUTO) 0.7 (0.2-0.8); MONOCYTES % 8.7 % (4.4-11.3); NEUTROPHILS # (AUTO) 5.6 (2.1-6.9); NEUTROPHILS % 74.7 % (38.7-80.0); PLATELET COUNT 71 x10e3/uL (140-360); RED BLOOD COUNT 2.89 x10e6/uL (3.6-5.1); RED CELL DISTRIBUTION WIDTH 14.7 % (11.7-14.4)
[2019-02-15 06:36] LABS: CALCIUM 8.1 mg/dL (8.4-10.2); CREATININE, SERUM 6.42 mg/dL (0.57-1.11)
[2019-02-15] MEDS: MIDODRINE 2.5 MG TAB PO SCH ×3 (08:00→16:00)
[2019-02-15] MEDS ORDERED: MORPHINE SULFATE 2 MG/ML SYR 1ML IV PRN (08:45)
[2019-02-15] MEDS ORDERED: SIMETHICONE 80 MG CHEW PO PRN (09:30)
--- NOTE | 2019-02-15 10:15 | Diagnostic Imaging Report ---
EXAMINATION: CHEST SINGLE (PORTABLE) INDICATION: Shortness of breath COMPARISON: Chest radiograph of 02/12/2019 FINDINGS: LINES/TUBES:EKG leads overlie the chest. LUNGS:The lungs are moderately inflated. There is perihilar fullness and indistinctness of the pulmonary vasculature. Bibasilar airspace opacities, slightly increased compared to the prior radiograph of 02/12/2019 PLEURA:Possible trace bilateral pleural effusion. No pneumothorax. MEDIASTINUM:The cardiomediastinal silhouette appears unchanged in size and shape. BONES/SOFT TISSUES:No acute osseous injury. ABDOMEN:No free air under the diaphragm. IMPRESSION: Mild increase in interstitial pulmonary edema. Trace bilateral pleural effusions. Mildly increased bibasilar airspace opacities, more likely subsegmental atelectasis than superimposed aspiration or pneumonia. Signed by: Caleb Dunn MD on 02/15/2019 10:12 AM
[2019-02-15] MEDS ORDERED: LIDOCAINE HCL 1% LOCAL INJ 20 ML VIAL ONE (10:46)
[2019-02-15] MEDS: ALBUTEROL/IPRATROPIUM 3 ML NEB NEB PRN ×3 (11:00→19:39)
[2019-02-15 11:31] LABS: WBC,FECAL (FECAL LACTOFERRIN) NEGATIVE (NEGATIVE)
[2019-02-15 11:32] LABS: C DIFFICILE TOXIN A&B AMP PROB NEGATIVE (NEGATIVE)
[2019-02-15] MEDS ORDERED: HEPARIN SOD (PORCINE) 5,000 UNIT/ML VIAL SC ONE (12:30)
--- NOTE | 2019-02-15 13:12 | NUR ---
CALL PLACED OUT TO DR. WHITE REGARDING ALBUMIN ORDER. ALBUMIN HAS REACHED A STOP DATE. AWAITING CALLBACK.
[2019-02-15] MEDS ORDERED: FUROSEMIDE INJ 10 MG/ML 4 ML VIAL IV ONE (13:15)
[2019-02-15] MEDS ORDERED: SODIUM CHLORIDE 0.9% 1000ML 2,000 ML IV PRN (14:30)
[2019-02-15] MEDS ORDERED: SODIUM CHLORIDE 0.9% 250ML 500 ML IV PRN (14:30)
[2019-02-15] MEDS ORDERED: HEPARIN SOD (PORCINE) 1000 UNIT/ML SDV IV PRN (14:30)
[2019-02-15] MEDS ORDERED: MANNITOL 25% 12.5GM/50 ML VIAL IV PRN (14:30)
--- NOTE | 2019-02-15 15:22 | Diagnostic Imaging Report ---
PROCEDURE: Non-tunneled central venous catheter placement Procedural Personnel Attending physician(s): Caleb Dunn MD Fellow physician(s): None Resident physician(s): None Advanced practice provider(s): None Pre-procedure diagnosis: MUSTAPHA Post-procedure diagnosis: Same Indication: Performance of hemodialysis Additional clinical history: None Complications: No immediate complications. IMPRESSION: Insertion of right-sided non-tunneled triple-lumen temporary dialysis catheter. Plan: Portable chest radiograph immediately to confirm positioning prior to use. PROCEDURE SUMMARY: - Venous access with ultrasound guidance - Non-tunneled central venous catheter insertion with fluoroscopic guidance - Additional procedure(s): None PROCEDURE DETAILS: Pre-procedure Consent: Informed consent for the procedure including risks, benefits and alternatives was obtained and time-out was performed prior to the procedure. Preparation (MIPS): The site was prepared and draped using all elements of maximal sterile barrier technique including sterile gloves, sterile gown, cap, mask, large sterile sheet, sterile ultrasound probe cover, hand hygiene and cutaneous antisepsis with 2% chlorhexidine. Medical reason for site preparation exception (MIPS): Not applicable Anesthesia/sedation Level of anesthesia/sedation: No sedation Access Local anesthesia was administered. The vessel was sonographically evaluated and determined to be patent. Real time ultrasound was used to visualize needle entry into the vessel and a permanent image . Vein accessed: Internal jugular vein Access technique: Micropuncture set with 21 gauge needle Catheter placement The access site was dilated and the catheter was placed into the vein over a wire . A sterile dressing was applied. Catheter placed: Bard Catheter size (Luxembourgish): 13 Catheter length (cm): 15 Catheter flush: Heparin (1000 units/mL) Catheter securement technique: Non-absorbable suture Contrast Contrast agent: None Radiation Dose None. Ultrasound guidance only. Additional Details Additional description of procedure: None Equipment details: None Specimens removed: None Estimated blood loss (mL): Less than 10 Standardized report: [email or web address] Attestation Signer name: Caleb Dunn MD I attest that I was present for the entire procedure. I reviewed the stored images and agree with the report as written. Signed by: Caleb Dunn MD on 02/15/2019 3:19 PM
--- NOTE | 2019-02-15 16:04 | Diagnostic Imaging Report ---
EXAMINATION: CHEST SINGLE (PORTABLE) INDICATION: Postprocedural COMPARISON: Chest radiograph of 02/15/2019 FINDINGS: LINES/TUBES:Interval placement of right IJ temp or dialysis catheter terminating in the superior vena cava. EKG leads overlie the chest. LUNGS:The lungs are moderately inflated. There is perihilar fullness and indistinctness of the pulmonary vasculature. Unchanged bibasilar airspace opacities. PLEURA:Small bilateral pleural effusions. No pneumothorax. MEDIASTINUM: Cardiomediastinal silhouette is stably enlarged. BONES/SOFT TISSUES:No acute osseous injury. ABDOMEN:No free air under the diaphragm. IMPRESSION: Interval placement of right IJ talus is catheter terminating in the superior vena cava. Unchanged pulmonary edema, bilateral pleural effusions, and cardiomegaly. Patchy bibasilar opacities, most likely subsegmental atelectasis. Signed by: Caleb Dunn MD on 02/15/2019 4:01 PM
--- NOTE | 2019-02-15 19:45 | NUR ---
PATIENT IN STABLE CONDITION WITH NO S/S OF RESPIRATORY DISTRESS- NO PAIN VOICED. 02 APPLIED. TELEMETRY APPLIED. CALL LIGHT IS WITHIN REACH, INSTRUCTED TO CALL FOR ASSISTANCE NEEDED. REPORT GIVEN TO ONCOMING NURSE.
--- NOTE | 2019-02-16 00:06 | NUR ---
Blood Cultures done x2 and sent to lab. Tylenol given.
--- NOTE | 2019-02-16 00:51 | Progress Note ---
DATE: 02/15/2019 Nephrology Progress Note SUBJECTIVE: The patient is very short of breath. Creatinine is much worse today. Dialysis catheter was placed by Interventional Radiology and I initiated hemodialysis today. OBJECTIVE: VITAL SIGNS: Temperature is 100.9, pulse is 106, respiratory rate is 22, blood pressure 137/59, pulse ox 96% on 3 L nasal cannula. GENERAL: No acute distress. Alert and oriented x3. Cooperative on examination. HEENT: Head normocephalic, atraumatic. Eyes; pupils are equal, round, and reactive to light bilaterally. Extraocular movements are intact bilaterally. Throat; no evidence of erythema or exudates in the posterior pharynx. Has poor dentition. NECK: Supple. Good range of motion. PULMONARY: Clear to auscultation bilaterally. No wheezing, rales, or rhonchi. No crackles appreciated. CARDIOVASCULAR: Positive S1, S2. No murmurs, rubs, or gallops appreciated. ABDOMEN: Soft, nondistended, and nontender to palpation. Bowel sounds present. MUSCULOSKELETAL: Strength is 5/5 throughout. No evidence of muscle deficits on examination. No weakness appreciated. NEUROLOGIC: Cranial nerves II through XII are grossly intact. No evidence of any neurological deficits on exam. SKIN: Intact. Warm to touch. Good cap refill. PSYCHIATRIC: Normal affect and mood. EXTREMITIES: She has 3+ pedal edema. Good range of motion throughout. LABORATORY FINDINGS: Show white count 7.5, hemoglobin 8.9, hematocrit 26.5, platelets of 71. Chemistries reviewed, sodium 135, potassium 5, chloride 106, bicarb 15, anion gap of 19, BUN 69, creatinine is 6.4, glucose is 77, calcium is 8.1. MICROBIOLOGY: None. IMAGING STUDIES: Chest x-ray shows opacities with pulmonary edema. IMPRESSION: 1. Acute kidney injury, now with worsening creatinine concerning for underlying hepatorenal syndrome type 2 and also possible underlying acute tubular necrosis. 2. Acute colitis. 3. Liver cirrhosis. 4. Hypoalbuminemia with nonnephrotic range proteinuria. 5. Hyperuricemia. 6. Anemia with thrombocytopenia. PLAN: At this time, dialysis catheter has been placed. We will do a hemodialysis treatment today with low blood flow rates of 250 mL/minute. Dialysis flow rate is 500 mL/minute. We will do a 2K bath, 3 calcium, ultrafiltration 2 L, duration 2.5 hours. We will repeat dialysis tomorrow. Give the patient a dialysis holiday on Friday and then do dialysis on with a renal biopsy at that time as well. If she shows no evidence of renal recovery, I will likely just go ahead and insert tunneled dialysis catheter and get her treated as an outpatient at dialysis unit. At this time, I feel like the patient likely has some underlying chronic disease, but I do not know what exactly happened over the last six months so she did not follow up with any physician. At this time, we will continue same plan of care and monitor closely. I discussed plan of care with the patient, the patient's family and nursing staff. MD ELSY Wiggins/SHERI /[id number]
[2019-02-16 04:00] VITALS: BP 151/73
[2019-02-16 05:55] LABS: BASOPHILS % 0.3 % (0.0-1.0); EOSINOPHILS # (AUTO) 0.1 (0.0-0.4); EOSINOPHILS % 1.3 % (0.0-6.0); HEMATOCRIT 24.5 % (34.2-44.1); HEMOGLOBIN 8.5 g/dL (12.0-16.0); LYMPHOCYTES % 16.4 % (18.0-39.1); MEAN CORPUSCULAR HEMOGLOBIN 30.8 pg (28-32); MEAN CORPUSCULAR HGB CONC 34.7 g/dL (31-35); MEAN CORPUSCULAR VOLUME 88.8 fL (81-99); MONOCYTES # (AUTO) 0.9 (0.2-0.8); MONOCYTES % 13.9 % (4.4-11.3); NEUTROPHILS # (AUTO) 4.3 (2.1-6.9); NEUTROPHILS % 67.5 % (38.7-80.0); PLATELET COUNT 51 x10e3/uL (140-360); RED BLOOD COUNT 2.76 x10e6/uL (3.6-5.1)
[2019-02-16] MEDS: PANTOPRAZOLE SOD 40 MG TABEC PO SCH (06:00)
[2019-02-16 06:14] LABS: ANION GAP 19.4 mmol/L (8-16); CALCIUM 8.2 mg/dL (8.4-10.2); CREATININE, SERUM 5.91 mg/dL (0.57-1.11); MAGNESIUM 2.1 MG/DL (1.3-2.1); POTASSIUM 4.4 mmol/L (3.5-5.1)
[2019-02-16 06:50] LABS: PLATELET ESTIMATE MARKEDLY DECREASED
[2019-02-16] MEDS: ALBUTEROL/IPRATROPIUM 3 ML NEB NEB PRN ×3 (07:33→20:02)
[2019-02-16 07:35] VITALS: BP 123/59
[2019-02-16] MEDS: ACETAMINOPHEN 325 MG TAB PO PRN (09:38)
[2019-02-16] MEDS ORDERED: ONDANSETRON HCL 4 MG ORAL DISINTEGRATING TAB PO PRN (10:30)
[2019-02-16 10:50] VITALS: BP 155/65
--- NOTE | 2019-02-16 12:26 | NUR ---
Nutrition Screen Note RD Recommendation for Physician: -ADAT to renal per MD. Plan of Care: RD following, monitoring for tolerance and adequacy. Education provided. Nutrition reason for involvement: Follow up Primary Diagnose(s): Ascites, colitis PMH: She has rheumatoid arthritis, hypertension, history of ascites, and lower extremity edema. Ht: 63 in Wt:173 lb BMI: 30.7kg/m2 IBW:[address] Assessment: 02/16: Follow up: Pt was seen resting in her bed, she was very tired and did not want to answer many questions. Pt is on full liquids, tray was observed beside. Pt reported she will eat her oatmeal eventually after she gets some rest. Dialysis catheter has been placed, HD today and tmrw. Pt stated she is lactose intolerant but she does not want this documented within her chart and that she can self select from the menu. Chart reviewed. LBM: 02/14. Will continue to monitor. (02/10): 68 YOF admitted for ascities, colitis with PMH listed above. Received consult for diet education regarding the pt. Per MD note-the pt has acute kidney injury on chronic kidney disease, concerning for underlying hepatorenal syndrome type 2 with worsening renal function and the pt also has liver cirrhosis. Spoke extensively with the pt regarding proper diet for renal and cirrhosis patients. There is a possibility of starting the pt on HD. Provided the pt with numerous packets (low phos, low potass and low na foods). Also educated the pt on reading the food label and gave grocery shopping tips. Pt reported her appetite has been poor for a couple of months, but was unaware of any weight loss d/t her fluid accumulation. Pt denied N/V/C/D/chewing or swallowing issues as well as any food allergies. Chart reviewed. Labs and meds reviewed. Also directed the pt to outpatient counseling for nutrition if she would like to receive additional education. Pt had EGD today. Will continue to monitor. Current Diet: full liquids Malnutrition Evaluation 02/10 The patient does not meet criteria for a specified degree of malnutrition at this time. Will re-evaluate at follow-up as appropriate. Energy intake: <50% of estimated energy requirements for >1 month Weight loss: -unable to evaluate Diet Education Needs Assessment: Diet education indicated, pt accepted. Diet Adequacy: (Meeting calorie needs, Meeting protein needs Learner(s): pt Barriers: none Cultural/Language Modifications: none Readiness: acceptance Method: discussion, handout Topics: Renal and Cirrhosis MNT (reading the food label, foods recommended and not recommended, grocery shopping tips, meal plans, etc.) Understanding/Compliance: verbalized understanding, anticipate good compliance Nutrition Care Level: low Signed: Anh Haley RD, LD
--- NOTE | 2019-02-16 13:19 | Progress Note ---
DATE: 02/16/2019 Nephrology Progress Note SUBJECTIVE: The patient is doing much better today as yesterday she had some hemodialysis with increased ultrafiltration. She is less short of breath, but still has significant edema. She had a temperature of 101.1 T-max last night. Current temperature is 98.9. She is otherwise doing well. Scheduled for hemodialysis later today. PHYSICAL EXAMINATION: VITAL SIGNS: Temperature is 98.9, T-max 101.1, pulse 109, respiratory rate is 20, blood pressure 155/65, pulse ox is 99% on 3 L nasal cannula. GENERAL: Not in acute distress. Alert and oriented x3. Cooperative on examination. HEENT: Head; normocephalic, atraumatic. Eyes; pupils are equal, round, and reactive to light bilaterally. Extraocular movements are intact bilaterally. Throat; no evidence of erythema or exudates in the posterior pharynx. Has poor dentition. NECK: Supple. Good range of motion. PULMONARY: Clear to auscultation bilaterally. No wheezing, rales, or rhonchi. No crackles appreciated. CARDIOVASCULAR: Positive S1, S2. No murmurs, rubs, or gallops appreciated. ABDOMEN: Soft, nondistended, and nontender to palpation. Bowel sounds present. MUSCULOSKELETAL: Strength is 5/5 throughout. No evidence of any muscle deficits on examination. No weakness appreciated. NEUROLOGIC: Cranial nerves 2 through 12 grossly intact. No evidence of any neurological deficits on exam. SKIN: Intact. Warm to touch. Good cap refill. PSYCHIATRIC: Normal affect and mood. EXTREMITIES: No edema. Good range of motion throughout. LABORATORY DATA: Labs show white count 6.3, hemoglobin 8.5, hematocrit 24.5, platelets of 51. Coagulation; PT 14, INR 1, PTT 27. Chemistry; sodium 138, potassium 4.4, chloride 104, bicarb 19, anion gap of 19, BUN is 48, creatinine is 5.9, glucose is 87, magnesium is 2.1. IMPRESSION: 1. Acute kidney injury with worsening renal function likely concerning for hepatorenal syndrome type 2 possibly underlying acute tubular necrosis. 2. Acute colitis. 3. Liver cirrhosis. 4. Hypoalbuminemia with nonnephrotic range proteinuria. 5. Hyperuricemia. 6. Anemia with underlying thrombocytopenia. PLAN: At this time, the patient had received hemodialysis yesterday with 2 L ultrafiltration. She is scheduled for dialysis today with ultrafiltration of 3 L. We will give her a holiday for dialysis tomorrow and we will try to do dialysis on with a renal biopsy at that time. We will continue with same plan of care with no other changes. We will consider giving diuretics, but the patient is making very little amount of urine. I will go ahead and schedule some Lasix 80 mg IV q.8 and see if that will help her make some good diuresing. For now, she will be on hemodialysis and likely will be acutely for a period of time until her renal function is recovered. MD ELSY Wiggins/MODL /[id number]
[2019-02-16 14:08] VITALS: BP 155/65
[2019-02-16 15:48] VITALS: BP 144/76
[2019-02-16] MEDS: FUROSEMIDE INJ 10 MG/ML 4 ML VIAL IV SCH ×2 (17:36→21:51)
--- NOTE | 2019-02-16 19:20 | NUR ---
RECEIVED CHANGE OF SHIFT REPORT FROM AM NURSE. WALKING ROUNDS COMPLETED.
[2019-02-16 20:00] VITALS: BP 125/59
[2019-02-17] VITALS (7 sets, daily range): BP systolic 117–144; BP diastolic 55–73
--- NOTE | 2019-02-17 03:11 | NUR ---
Blood drawn from patient and sent to the lab. Patient tolerated well.
[2019-02-17 03:48] LABS: BASOPHILS % 0.2 % (0.0-1.0); EOSINOPHILS # (AUTO) 0.1 (0.0-0.4); EOSINOPHILS % 2.3 % (0.0-6.0); HEMATOCRIT 24.8 % (34.2-44.1); HEMOGLOBIN 8.4 g/dL (12.0-16.0); LYMPHOCYTES # (AUTO) 0.7 (1.0-3.2); LYMPHOCYTES % 14.7 % (18.0-39.1); MEAN CORPUSCULAR HEMOGLOBIN 30.7 pg (28-32); MEAN CORPUSCULAR HGB CONC 33.9 g/dL (31-35); MEAN CORPUSCULAR VOLUME 90.5 fL (81-99); MONOCYTES # (AUTO) 0.6 (0.2-0.8); MONOCYTES % 11.7 % (4.4-11.3); NEUTROPHILS # (AUTO) 3.3 (2.1-6.9); NEUTROPHILS % 70.7 % (38.7-80.0); RED BLOOD COUNT 2.74 x10e6/uL (3.6-5.1); RED CELL DISTRIBUTION WIDTH 15.1 % (11.7-14.4)
[2019-02-17 03:56] LABS: ANION GAP 16.2 mmol/L (8-16); CALCIUM 8.4 mg/dL (8.4-10.2); CREATININE, SERUM 4.5 mg/dL (0.57-1.11); MAGNESIUM 1.8 MG/DL (1.3-2.1); PHOSPHORUS 2.7 MG/DL (2.3-4.7); POTASSIUM 4.2 mmol/L (3.5-5.1)
[2019-02-17 04:09] LABS: PLATELET COUNT 43 x10e3/uL (140-360)
[2019-02-17] MEDS: ACETAMINOPHEN 325 MG TAB PO PRN ×3 (05:00→23:44)
[2019-02-17] MEDS: FUROSEMIDE INJ 10 MG/ML 4 ML VIAL IV SCH (05:03)
[2019-02-17] MEDS: PANTOPRAZOLE SOD 40 MG TABEC PO SCH ×2 (05:03→06:38)
[2019-02-17] MEDS: SODIUM CHLORIDE FLUSH 10 ML SYR INJ PRN (05:03)
[2019-02-17] MEDS ORDERED: SALIVA SUBSTITUTE 45 ML LIQD MM PRN (06:30)
[2019-02-17] MEDS ORDERED: ONDANSETRON HCL INJ 2MG/ML 2ML 2 MG/ML VIAL IV PRN (06:30)
[2019-02-17] MEDS ORDERED: ACETAMIN/BUTALBITAL/CAFFEINE TAB PO ONE (06:30)
[2019-02-17] MEDS: ALBUTEROL/IPRATROPIUM 3 ML NEB NEB PRN (08:15)
--- NOTE | 2019-02-17 13:31 | NUR ---
DOCTOR RECOMMENDS AND PT AGREED TO [facility] FOR DIALYSIS UNDER DR FISCHER, SHE WOULD LIKE , AND FRIDAYS AFTERNOON IF AVAILABLE, WILL FAX CLINICALS TO FACILITY TO GET DIALYSIS STARTED. FILED CHOICE LETTER IN CHART. CALLED [phone] TO GET FAX NUMBER NO MACHINE WITH MESSAGE, WILL HAVE TO CALL IN MORNING TO GET FAX NUMBER.
--- NOTE | 2019-02-17 13:49 | NUR ---
WENT ON WEBSITE AND FOUND COVER SHEET AND FAX NUMBER, FAXED, WILL FOLLOW UP IN AM FOR FURTHER INFORMATION NEEDED.
--- NOTE | 2019-02-17 17:06 | Progress Note ---
DATE: 02/17/2019 Nephrology Progress Note SUBJECTIVE: The patient is currently doing very well. No overnight events. Had HD yesterday. PHYSICAL EXAMINATION: VITAL SIGNS: Temperature is 98.6, T-max was 99.4. Respiratory rate is 18, blood pressure 126/73, and pulse ox 91% on 2 L nasal cannula. GENERAL: In no acute distress. Alert and oriented x3. Cooperative on examination. HEENT: Head, normocephalic, atraumatic. Eyes, pupils are equal, round, and reactive to light bilaterally. Extraocular movements are intact bilaterally. Throat, no evidence of erythema or exudates in the posterior pharynx. Has poor dentition. NECK: Supple. Good range of motion throughout. PULMONARY: Clear to auscultation bilaterally. No wheezing, rales, or rhonchi. No crackles appreciated. CARDIOVASCULAR: Positive S1, S2. No murmurs, rubs, or gallops. ABDOMEN: Soft, nontender, and nontender to palpation. Bowel sounds present. MUSCULOSKELETAL: Strength is 5/5 throughout. No evidence of any muscle deficits on examination. No weakness appreciated. NEUROLOGIC: Cranial nerves II through XII are grossly intact. No evidence of any neurological deficits on exam. SKIN: Intact. Warm to touch. Good cap refill. PSYCHIATRIC: Normal affect and mood. EXTREMITIES: She has still 2+ pedal edema in bilateral lower extremities. LABORATORY FINDINGS: Show white count is 4.6, hemoglobin 8.4, hematocrit is 24 platelets of 43. Coagulation; PT 14, INR is 1, PTT 27. Chemistry; sodium 137, potassium 4.2, chloride 102, bicarb 23, anion gap is 16, BUN is 25, creatinine is 4.5, glucose is 78. Microbiology, stool culture shows no Campylobacter isolated. All cultures were found to be negative. IMPRESSION: 1. Acute kidney injury with worsening renal function concerning for underlying hepatorenal syndrome type 2 and possibly underlying ATN. 2. Acute colitis. 3. Liver cirrhosis. 4. Hypoalbuminemia with nonnephrotic range proteinuria. 5. Hyperuricemia. 6. Anemia with underlying thrombocytopenia. PLAN: At this time, HD will be scheduled for tomorrow. We are going to go ahead and convert the temporary catheter to a tunneled dialysis catheter, get a renal biopsy for tomorrow. I did discuss with the patient that she will likely need to go to the chronic unit for acute dialysis and eventually hopefully once her biopsy results are back and she is making urine and her labs are better, she can probably eventually come off the dialysis machine, but at this time, she does need an acute unit, which I discussed with Case Management. MD ELSY Wiggins/SHERI /[id number]
--- NOTE | 2019-02-17 19:22 | NUR ---
report given to oncoming nurse. pt stable.
--- NOTE | 2019-02-17 19:49 | NUR ---
Received change of shift report from AM nurse. Walking rounds completed.
[2019-02-18 04:00] VITALS: BP 126/61
[2019-02-18 05:43] LABS: BASOPHILS % 0.2 % (0.0-1.0); EOSINOPHILS # (AUTO) 0.2 (0.0-0.4); EOSINOPHILS % 3.3 % (0.0-6.0); HEMATOCRIT 24.2 % (34.2-44.1); HEMOGLOBIN 8.1 g/dL (12.0-16.0); LYMPHOCYTES # (AUTO) 0.7 (1.0-3.2); LYMPHOCYTES % 15.2 % (18.0-39.1); MEAN CORPUSCULAR HEMOGLOBIN 30.6 pg (28-32); MEAN CORPUSCULAR HGB CONC 33.5 g/dL (31-35); MEAN CORPUSCULAR VOLUME 91.3 fL (81-99); MONOCYTES # (AUTO) 0.5 (0.2-0.8); NEUTROPHILS # (AUTO) 3.4 (2.1-6.9); NEUTROPHILS % 69.9 % (38.7-80.0); PLATELET COUNT 74 x10e3/uL (140-360); RED BLOOD COUNT 2.65 x10e6/uL (3.6-5.1); RED CELL DISTRIBUTION WIDTH 15.4 % (11.7-14.4)
[2019-02-18 05:57] LABS: ANION GAP 15.6 mmol/L (8-16); CALCIUM 8.9 mg/dL (8.4-10.2); CREATININE, SERUM 6.17 mg/dL (0.57-1.11); POTASSIUM 4.6 mmol/L (3.5-5.1)
[2019-02-18] MEDS: PANTOPRAZOLE SOD 40 MG TABEC PO SCH (06:03)
--- NOTE | 2019-02-18 07:15 | NUR ---
pt asleep resp even and unlabored att his time no distress noted, call light in reach.
[2019-02-18] MEDS: PREDNISONE 20 MG TAB PO SCH (07:40)
[2019-02-18 08:33] VITALS: BP 148/68
--- NOTE | 2019-02-18 09:30 | NUR ---
pt dialysis started at this time.
--- NOTE | 2019-02-18 11:20 | NUR ---
CALLED DIALYSIS UNIT AT [phone] GOT NO ANSWER, SO LOOKED ON WEBSITE AND CALLED CORPORATE OFFICE TO SEE IF CLINIC IS OPEN TODAY [phone], SPOKE WITH Nanette GUZMAN, SHE STATES THEY SHOULD BE OPEN, EXPLAINED THAT I WAS ATTEMPTING TO CONFIRM RECEIPT OF REFERRAL. SHE LOOKED IN SYSTEM AND COULD NOT FIND IT, SHE ASKED THAT I FAX TO [phone], FAXED AND GOT PRINTED CONFIRMATION, WILL CALL FACILITY TO CONFIRM. ALSO WAS ABLE TO CONFIRM SPELLING OF ROAD MACHINERY INSPECTOR NAME IS dR MICHEL.
[2019-02-18] MEDS ORDERED: LIDOCAINE HCL 1% LOCAL INJ 20 ML VIAL ONE ×2 (11:40→15:24)
[2019-02-18] MEDS ORDERED: SODIUM CHLORIDE 0.9% 250ML 250 ML ONE (11:40)
--- NOTE | 2019-02-18 13:00 | NUR ---
dialysis finished 3.5 liter off at this time.
[2019-02-18 13:07] VITALS: BP 151/73
--- NOTE | 2019-02-18 13:40 | NUR ---
pt off unit for procedure,
[2019-02-18] MEDS ORDERED: FENTANYL CITRATE/PF 100MCG/2 ML INJ ONE (14:15)
[2019-02-18] MEDS ORDERED: MIDAZOLAM HCL 2 MG/2 ML VIAL ONE (14:15)
[2019-02-18] MEDS ORDERED: HEPARIN SOD (PORCINE) 1000 UNIT/ML SDV ONE (14:26)
--- NOTE | 2019-02-18 14:44 | Progress Note ---
DATE: 02/18/2019 Nephrology Progress Note SUBJECTIVE: The patient is currently receiving hemodialysis as per schedule. She is scheduled for renal biopsy as well as a tunneled dialysis catheter placement. Work on placement as an outpatient with [facility] if approved. PHYSICAL EXAMINATION: VITAL SIGNS: Temperature is 97.9, pulse 101, respiratory rate is 20, blood pressure is 148/68, and pulse ox 96% on 2 L nasal cannula. GENERAL: Not in acute distress. Alert and oriented x3. Cooperative on examination. HEENT: Head; normocephalic, atraumatic. Eyes; pupils are equal, round, and reactive to light bilaterally. Extraocular movements intact bilaterally. Throat; no evidence of erythema or exudates in the posterior pharynx. Has poor dentition. NECK: Supple. Good range of motion. PULMONARY: Clear to auscultation bilaterally. No wheezing, no rales, no rhonchi, no crackles appreciated. CARDIOVASCULAR: Positive S1 and S2. No murmurs, rubs, or gallops appreciated. ABDOMEN: Soft, nondistended, and nontender to palpation. Bowel sounds present. MUSCULOSKELETAL: Strength is 5/5 throughout. No evidence of any muscle deficits on examination. No weakness appreciated. NEUROLOGIC: Cranial nerves II through XII grossly intact. No evidence of any neurological deficits on exam. SKIN: Intact. Warm to touch. Good cap refill. PSYCHIATRIC: Normal affect and mood. EXTREMITIES: She has 2+ pitting edema in bilateral lower extremities. LABORATORY FINDINGS: Show white count 4.8, hemoglobin 8.1, hematocrit is 24.2, and platelets is 74. Chemistry shows sodium 138, potassium 4.6, chloride 103, bicarb 24, anion gap of 15, BUN is 31, creatinine 6.1, glucose is 72, and calcium is 8.9. IMPRESSION: 1. Acute kidney injury secondary to worsening renal function, concerns for underlying hepatorenal syndrome type 2 as well as possible acute tubular necrosis. 2. Acute colitis. 3. Liver cirrhosis. 4. Hypoalbuminemia with nonnephrotic range proteinuria. 5. Hyperuricemia. 6. Anemia with underlying thrombocytopenia. PLAN: At this time, she is receiving dialysis today. Blood flow rate 300 mL/minute and dialysis flow rate 600 mL/minute, 2K bath, 2.5 calcium, ultrafiltration 3.5 L for duration of about 3 hours. We will try to dialyze her tomorrow as well. She is scheduled for renal biopsy today as well as a tunneled dialysis catheter. Arrange for outpatient hemodialysis unit. She has no evidence of renal recovery at this time. Continue to follow very closely. MD ELSY Wiggins/SHREI /[id number]
--- NOTE | 2019-02-18 16:00 | NUR ---
pt returned to unit resp even and unlabored at this time, no c/o pain when asked, call light in reach, pt family member at bedside. call light in reach.
--- NOTE | 2019-02-18 16:05 | Diagnostic Imaging Report ---
Ultrasound guided renal biopsy Modality: Ultrasound Clinical History: Acute kidney injury Sedation: Versed 1.5 mg and fentanyl 75 mcg intravenously for conscious sedation. Vital signs were monitored throughout the procedure by a nurse, and remained stable. Physician intra-service sedation time: 30 minutes. Food And Beverage Cashier: Aguila Patel MD. Mercantile Agent: None. Estimated Blood Loss: none Specimen: 4x 18-gauge gauge core biopsy samples, evaluated for adequacy by pathology. Technique: Informed consent was obtained. The risks of pain, bleeding, infection, injury to kidney/adjacent structures, and adverse medication reactions were discussed with the patient. After informed consent, the patient's knee left kidney was scanned, with the patient prone. The inferior pole was selected for biopsy. After the skin was prepped and draped in the usual sterile manner, the area was anesthetized with 2% lidocaine. After a small skin incision is made, an 17-gauge introducer needle was advanced to the inferior pole of the left kidney under direct sonographic observation. An 18-gauge core biopsy needle was used coaxially to obtain 4 biopsy samples which were evaluated for adequacy by cytopathology. The introducer needle was removed and tract embolized with Gelfoam slurry. Postprocedure sonographic evaluation of the area reveals no perinephric hematoma. The patient's vital signs remained stable throughout the procedure. The patient tolerated the procedure well. Impression: Technically successful, uncomplicated ultrasound-guided core biopsy of the [place] left kidney with contrast sedation. Signed by: Dr. Aguila Patel MD on 02/18/2019 4:02 PM
--- NOTE | 2019-02-18 16:29 | Diagnostic Imaging Report ---
Conversion of a nontunneled to tunneled dialysis catheter. History: Renal failure. Modality: Fluoroscopy. Sedation: Versed 0.5 mg and fentanyl 25 mcg was given intravenously for conscious sedation. Vital signs were monitored throughout the procedure by a nurse, and remained stable. Physician intra-service time was 30 minutes. Vice President Of Product Marketing: MD Amanda. Pull Through Hooker: None. Approach: Via indwelling right IJ nontunneled dialysis catheter Estimated blood loss: < 5 cc. Specimen: None. Fluoroscopy Time: 0.3 min. Dose (Ka,r): 3.19 mGy. Technique: Informed written consent was obtained. Discussion of risks, benefits, and alternatives were made with the patient. The patient expressed understanding and agreed to proceed. All elements maximal sterile barrier technique was utilized for this procedure, including utilization of sterile scrub solution for skin prep, a large sterile sheet to cover the areas of the patient that were not prepped, and hand hygiene, mask, head covering, and sterile gown for performing radiologist and scrub technologist. The skin was anesthetized with 2% lidocaine. A 0.035 Amplatz wire was inserted through the existing nontunneled dialysis catheter into the IVC. A subcutaneous tunnel was created in the right anterior chest wall by blunt dissection. A 19 cm tip to cuff 14.5 Slovenian Slovenian palindrome tunneled dialysis catheter was brought through the tunnel. The existing nontunneled hemodialysis catheter was then removed over the guidewire. A peel-away sheath was placed in the right IJ vein and the catheter was advanced through the sheath, with its distal tip terminating at the cavoatrial junction. The peel-away sheath was removed. The ports were flushed and aspirated easily following placement. The lumens were locked with heparin. The catheter was sutured to the skin with 2-0 proline to secure its placement. A resorbable purse string suture was placed at the catheter exit site. The small jugular incision site was closed using there are bonded. Vital signs were monitored throughout the procedure by a nurse, and remained stable. The patient tolerated the procedure well and left the department in the same condition. Results: Spot radiograph of the chest demonstrates the new dialysis catheter to lie in the expected position with its tip overlying the cavoatrial junction. Impression: Successful, uncomplicated conversion of a nontunneled right internal jugular to a tunneled dialysis catheter. Signed by: Dr. Aguila Patel MD on 02/18/2019 4:25 PM
[2019-02-18 17:12] VITALS: BP 133/66
[2019-02-18] MEDS ORDERED: ACETAMIN/BUTALBITAL/CAFFEINE TAB PO PRN (17:30)
--- NOTE | 2019-02-18 19:15 | NUR ---
patient received awake, alert, lying quietly in bed. no c/o pain noted. pm assessment complete. patient instructed to call for assistance when needed.
--- NOTE | 2019-02-18 19:22 | NUR ---
report given to oncoming nurse, pt stable at shift change
[2019-02-18 20:00] VITALS: BP 121/58
[2019-02-19] VITALS (8 sets, daily range): BP systolic 112–137; BP diastolic 53–64
[2019-02-19 02:57] LABS: BASOPHILS % 0.4 % (0.0-1.0); EOSINOPHILS % 0.7 % (0.0-6.0); HEMATOCRIT 26.3 % (34.2-44.1); HEMOGLOBIN 8.9 g/dL (12.0-16.0); LYMPHOCYTES # (AUTO) 0.7 (1.0-3.2); MEAN CORPUSCULAR HEMOGLOBIN 30.7 pg (28-32); MEAN CORPUSCULAR HGB CONC 33.8 g/dL (31-35); MEAN CORPUSCULAR VOLUME 90.7 fL (81-99); MONOCYTES # (AUTO) 0.5 (0.2-0.8); MONOCYTES % 8.2 % (4.4-11.3); NEUTROPHILS # (AUTO) 4.4 (2.1-6.9); PLATELET COUNT 71 x10e3/uL (140-360); RED CELL DISTRIBUTION WIDTH 15.3 % (11.7-14.4)
[2019-02-19 05:40] LABS: BASOPHILS % 0.4 % (0.0-1.0); EOSINOPHILS # (AUTO) 0.1 (0.0-0.4); EOSINOPHILS % 1.4 % (0.0-6.0); HEMOGLOBIN 8.2 g/dL (12.0-16.0); LYMPHOCYTES # (AUTO) 0.7 (1.0-3.2); LYMPHOCYTES % 14.8 % (18.0-39.1); MEAN CORPUSCULAR HEMOGLOBIN 31.3 pg (28-32); MEAN CORPUSCULAR HGB CONC 34.2 g/dL (31-35); MEAN CORPUSCULAR VOLUME 91.6 fL (81-99); MONOCYTES # (AUTO) 0.5 (0.2-0.8); MONOCYTES % 10.3 % (4.4-11.3); NEUTROPHILS # (AUTO) 3.5 (2.1-6.9); NEUTROPHILS % 72.7 % (38.7-80.0); PLATELET COUNT 63 x10e3/uL (140-360); RED BLOOD COUNT 2.62 x10e6/uL (3.6-5.1); RED CELL DISTRIBUTION WIDTH 15.4 % (11.7-14.4)
[2019-02-19 05:58] LABS: ANION GAP 15.6 mmol/L (8-16); CALCIUM 9.1 mg/dL (8.4-10.2); CREATININE, SERUM 4.24 mg/dL (0.57-1.11); POTASSIUM 4.6 mmol/L (3.5-5.1)
--- NOTE | 2019-02-19 07:19 | NUR ---
PATIENT IN BED WITH HEAD OF BED ELEVATED WATCHING TV, NO DISTRESS NOTED. RIGHT UPPER CHEST DIALYSIS CATHETER WITH DRESSING INTACT. BED IN LOWER POSITION, CALL LIGHT AT REACH.
[2019-02-19 07:20] LABS: ANION GAP 18.6 mmol/L (8-16); CALCIUM 9.4 mg/dL (8.4-10.2); CREATININE, SERUM 4.66 mg/dL (0.57-1.11); POTASSIUM 4.6 mmol/L (3.5-5.1)
--- NOTE | 2019-02-19 07:50 | NUR ---
SPOKE WITH DESTINEY AT [facility] [phone] WHOM STATES I SHOULD AVE A CONFIRMATION LETTER AND CHAIR TIME TODAY BY END OF BUSINESS.
[2019-02-19] MEDS: PREDNISONE 20 MG TAB PO SCH (09:50)
--- NOTE | 2019-02-19 11:39 | NUR ---
PATIENT ASSISTED TO THE RESTROOM AND BACK TO BED. CALL LIGHT AT REACH.
--- NOTE | 2019-02-19 15:28 | NUR ---
MD IN TO SEE PATIENT, ORDER RECEIVED TO MEASURE URINE OUTPUT. PATIENT PROVIDED WITH HAT.
--- NOTE | 2019-02-19 15:33 | NUR ---
SPOKE WITH DESTINEY AT [facility], PT ACCEPTED AND CHAIR TIME WILL BE , AND FRIDAYS AT 330 PM, DUE TO HOLIDAY PT WILL BE AT FIRST CHAIR TIME ON FRIDAY AT 300 PM TO BEGIN AND COMPLETE PAPERWORK PRIOR TO 330 CHAIR TIME. LETTER PROVIDED TO PATIENT FOR LOCATION AND PHONE NUMBER FOR FACILITY AND WHEN TO BE THERE.
--- NOTE | 2019-02-19 15:41 | Progress Note ---
DATE: 02/19/2019 Nephrology Progress Note SUBJECTIVE: The patient is doing well today with no complaints. Lower extremity edema improved. She is breathing well. She is still on nasal cannula, but she is not short of breath on examination. PHYSICAL EXAMINATION: VITAL SIGNS: She is afebrile. Normotensive. Respiratory rate is good. GENERAL: Not in acute distress. Alert and oriented x3. Cooperative on examination. HEENT: Head; normocephalic, atraumatic. Eyes; pupils are equal, round, and reactive to light bilaterally. Extraocular movements intact bilaterally. Throat; no evidence of erythema or exudates in the posterior pharynx. Has poor dentition. NECK: Supple. Good range of motion. PULMONARY: Clear to auscultation bilaterally. No wheezing, no rales, no rhonchi, no crackles appreciated. CARDIOVASCULAR: Positive S1 and S2. No murmurs, rubs, or gallops appreciated. ABDOMEN: Soft, nondistended, and nontender to palpation. Bowel sounds present. MUSCULOSKELETAL: Strength is 5/5 throughout. No evidence of any muscle deficits on examination. No weakness appreciated. NEUROLOGIC: Cranial nerves II through XII grossly intact. No evidence of any neurological deficits on exam. SKIN: Intact. Warm to touch. Good cap refill. PSYCHIATRIC: Normal affect and mood. EXTREMITIES: No edema. Good range of motion throughout. LABORATORY DATA: Labs show CBC stable. Chemistry reviewed; shows a creatinine of 4.2, BUN is 28. Urine output is adequately recorded. Rest of the electrolytes are stable. IMAGING STUDIES: None. IMPRESSION: 1. Acute kidney injury secondary to worsening renal function, concerns for underlying hepatorenal syndrome type 2 with possible underlying acute tubular necrosis. 2. Acute colitis. 3. Liver cirrhosis. 4. Hypoalbuminemia with non-nephrotic range proteinuria. 5. Hyperuricemia. 6. Anemia with underlying thrombocytopenia. PLAN: At this time, her electrolytes are currently stable. Get a.m. labs and monitor very closely. I discussed with the nurse and the patient to do accurate urine output. Tunneled catheter has been placed. Renal biopsy has been performed yesterday on 02/18/2019. At this time, she is still making minimal amount of urine. There is no indication for dialysis today. We will schedule for dialysis for tomorrow and increased ultrafiltration. Once the dialysis chair has been available, she can be discharged, but we will follow up with the pathology results with another cap cutter, which I will update him on Dr. Cantor. Otherwise, we will continue with same plan of care and monitor very closely. MD ELSY Wiggins/SHERI /[id number]
[2019-02-20] VITALS: BP 124/61
[2019-02-20 04:00] VITALS: BP 124/63
[2019-02-20] MEDS: PANTOPRAZOLE SOD 40 MG TABEC PO SCH (05:35)
[2019-02-20 05:51] LABS: ANION GAP 15.6 mmol/L (8-16); CALCIUM 10.1 mg/dL (8.4-10.2); CREATININE, SERUM 6.12 mg/dL (0.57-1.11); POTASSIUM 4.6 mmol/L (3.5-5.1)
--- NOTE | 2019-02-20 07:13 | NUR ---
PATIENT IN BED WORKING ON HER LAP TOP, NO COMPLAIN VOICED. BED IN LOWER POSITION, CALL LIGHT AT REACH.
[2019-02-20 07:17] VITALS: BP 138/60
[2019-02-20 07:35] VITALS: BP 138/60
[2019-02-20] MEDS: PREDNISONE 20 MG TAB PO SCH (09:25)
[2019-02-20 11:19] LABS: ANION GAP 12.7 mmol/L (8-16); CALCIUM 9.5 mg/dL (8.4-10.2); CREATININE, SERUM 4.58 mg/dL (0.57-1.11); POTASSIUM 3.7 mmol/L (3.5-5.1)
--- NOTE | 2019-02-20 11:20 | NUR ---
BED SIDE HEMODIALYSIS TREATMENT IN PROGRESS. IN BED WITH CALL LIGHT AT REACH.
[2019-02-20 11:46] VITALS: BP 134/87
--- NOTE | 2019-02-20 12:56 | Progress Note ---
DATE: 02/20/2019 Nephrology Progress Note SUBJECTIVE: The patient had hemodialysis chair time already scheduled for tomorrow, 02/21/2019. Her normal schedule being Friday, Friday, and Friday at 3:00 p.m. [facility] will be [facility] under Dr. Cantor for acute kidney injury and further management and care. She is currently receiving hemodialysis at this time. OBJECTIVE: VITAL SIGNS: Temperature is 97.7, pulse 87, respiratory rate 16, blood pressure 134/87, and pulse ox 99% on 2 L nasal cannula. GENERAL: No acute distress, alert and oriented x3, cooperative on examination. HEENT: Head; normocephalic, atraumatic. Eyes; pupils are equal, round, and reactive to light bilaterally. Extraocular movements intact bilaterally. Throat; no evidence of erythema or exudates in the posterior pharynx. Has poor dentition. NECK: Supple. Good range of motion throughout. PULMONARY: Clear to auscultation bilaterally. No wheezing, rales, or rhonchi. No crackles appreciated. CARDIOVASCULAR: Positive S1, S2. No murmurs, rubs, or gallops. ABDOMEN: Soft, nondistended, nontender to palpation. Bowel sounds present. MUSCULOSKELETAL: Strength is 5/5 throughout. No evidence of any muscle deficits on examination. No weakness appreciated. NEUROLOGIC: Cranial nerves II through XII are grossly intact. No evidence of any neurological deficits on exam. SKIN: Intact. Warm to touch. Good cap refill. PSYCHIATRIC: Normal affect and mood. EXTREMITIES: No edema. Good range of motion throughout. LABORATORY FINDINGS: White count 4.8, hemoglobin 8.2, hematocrit 24, and platelets is 63. Chemistry; sodium 133, potassium 2.7, chloride is 97, bicarb 27, anion gap of 12, BUN is 36, and creatinine is 4.5. IMPRESSION: 1. Acute kidney injury secondary to worsening renal function, probably secondary to hepatorenal syndrome type 2 versus acute tubular necrosis and a possibility of combination of both. 2. Acute colitis. 3. Liver cirrhosis. 4. Hypoalbuminemia with non-nonnephrotic range proteinuria. 5. Hyperuricemia. 6. Anemia with underlying thrombocytopenia. PLAN: At this time, the patient is currently receiving hemodialysis as per her schedule with 3.5 L ultrafiltration, duration 3.5 hours. The patient has a tunneled catheter placed already. She will be discharged later today with dialysis starting tomorrow due to the holiday. She will be going to [facility]. Case was discussed with the attending there as well. Continue with same plan of care and monitor very closely. Pathology is not available at the time of discharge. I spent significant period of time talking to the patient and nursing staff about overall plan of care and the patient verbalized understanding and agreed to plan of care. MD ELSY Wiggins/MODL /[id number]
--- NOTE | 2019-02-20 14:30 | NUR ---
BED SIDE HEMODIALYSIS TREATMENT COMPLETED. 3.5 LITERS OF FLUID REMOVED PER DIALYSIS NURSE. LAST B/P 127/. PATIENT IN BED RESTING WITH NO S/S OF DISCOMFORT.
[2019-02-20 15:47] VITALS: BP 107/53
--- NOTE | 2019-02-20 18:00 | NUR ---
PATIENT DISCHARGED HOME. DISCHARGE INSTRUCTIONS AND FOLLOW UP GIVEN TO PATIENT, SHE VERBALIZED UNDERSTANDING. IV TO LEFT WRIST REMOVED WITH TIP INTACT. ALL PERSONAL ITEMS TAKEN WITH PATIENT. LEFT UNIT PER WHEEL CHAIR TO FRONT LOBBY IN STABLE CONDITION.
--- NOTE | 2019-02-21 21:59 | Discharge Summary ---
ADMISSION DIAGNOSES: Cirrhosis with ascites, hyperlipidemia, rheumatoid arthritis, gastroesophageal reflux disease, hepatorenal syndrome, thrombocytopenia. DISCHARGE DIAGNOSES: Cirrhosis with ascites, hyperlipidemia, rheumatoid arthritis, gastroesophageal reflux disease, hepatorenal syndrome, thrombocytopenia. HISTORY: Cirrhosis, GERD, hyperlipidemia, RA. SURGICAL HISTORY: , cholecystectomy, tonsillectomy. FAMILY HISTORY: The patient's nephew has diabetes. The patient's sister has cancer. The patient's sister also had a stroke. SOCIAL HISTORY: Noncontributory. HOSPITAL COURSE: A 68-year-old female with past medical history of cirrhosis, admits with complaints of abdominal cramping, nausea, and swelling of her feet and abdomen that began a couple of months ago. She denies fever and diarrhea. On admission, the patient was started on Lasix and Aldactone. IR was consulted for paracentesis and GI was consulted. Chest x-ray showed interval development of bilateral interstitial edema with associated small bilateral pleural effusion. CT of the abdomen and pelvis showed moderate ascites and cirrhosis. Ultrasound of the abdomen showed no ascites and thus paracentesis could not be done. While hospitalized, the patient's GFR continued to worsen, so Nephrology was consulted. Her diuretics were stopped and a renal ultrasound was done, which showed no renal calculi or hydronephrosis. GI was also consulted and did an EGD, that showed esophagitis and gastritis. Due to edema, the patient had an echo that showed an EF of 55% or more. The patient's hemoglobin dropped to 6.7 during hospitalization and the patient required a unit of blood. During hospitalization, the patient had a total of 2 units of PRBCs and 3 units of platelets. All blood cultures were negative. All urine cultures were negative. Stool cultures were also negative. The patient was ordered to have a renal biopsy per Nephrology, which was canceled twice prior to being done on the third attempt. She also had a temporary and permanent dialysis catheter placed prior to discharge. She will discharge home with dialysis on Friday, Friday, and Friday per Nephrology recommendation. The patient understands discharge instructions and agrees to plan. Vital signs stable, the patient afebrile. Dictated by Ann Marie Cagle NP Bassam Wooten MD ANJEL/MODL /[id number]
--- NOTE | 2019-02-25 14:16 | Diagnostic Imaging Report ---
Ultrasound guided renal biopsy Modality: Ultrasound Clinical History: Acute kidney injury Sedation: Versed 1.5 mg and fentanyl 75 mcg intravenously for conscious sedation. Vital signs were monitored throughout the procedure by a nurse, and remained stable. Physician intra-service sedation time: 30 minutes. Industrial Hygienist: Aguila Patel MD. Funeral Pre Arrangement Specialist: None. Estimated Blood Loss: none Specimen: 4x 18-gauge gauge core biopsy samples, evaluated for adequacy by pathology. Technique: Informed consent was obtained. The risks of pain, bleeding, infection, injury to kidney/adjacent structures, and adverse medication reactions were discussed with the patient. After informed consent, the patient's knee left kidney was scanned, with the patient prone. The inferior pole was selected for biopsy. After the skin was prepped and draped in the usual sterile manner, the area was anesthetized with 2% lidocaine. After a small skin incision is made, an 17-gauge introducer needle was advanced to the inferior pole of the left kidney under direct sonographic observation. An 18-gauge core biopsy needle was used coaxially to obtain 4 biopsy samples which were evaluated for adequacy by cytopathology. The introducer needle was removed and tract embolized with Gelfoam slurry. Postprocedure sonographic evaluation of the area reveals no perinephric hematoma. The patient's vital signs remained stable throughout the procedure. The patient tolerated the procedure well. Impression: Technically successful, uncomplicated ultrasound-guided core biopsy of the [place] left kidney with contrast sedation. Signed by: Dr. Aguila Patel MD on 02/18/2019 4:02 PM
[2019-02-25] MEDS ORDERED: OMEPRAZOLE20 M1 PO (17:15)
[2019-02-25] MEDS ORDERED: ULTRAM50 MG PO (17:15)
== END 2019-02-20 18:23 | disposition home or self-care (01) | DRG 432 ==
LOC: FSED 16:55 → ERHOLD 19:26 → MED/SURG3 21:11
PROVIDERS: ADMIT Internal Medicine; ATTEND Internal Medicine
PROC: 0DB78ZX Excision of Stomach, Pylorus, Via Natural or Artificial Opening Endoscopic, Diagnostic (ICD-10-PCS; principal; 2019-02-10 16:00)
PROC: 30233R1 Transfusion of Nonautologous Platelets into Peripheral Vein, Percutaneous Approach (ICD-10-PCS; 2019-02-12)
PROC: 02HV33Z Insertion of Infusion Device into Superior Vena Cava, Percutaneous Approach (ICD-10-PCS; 2019-02-15)
PROC: 30243N1 Transfusion of Nonautologous Red Blood Cells into Central Vein, Percutaneous Approach (ICD-10-PCS; 2019-02-15)
PROC: 5A1D70Z Performance of Urinary Filtration, Intermittent, Less than 6 Hours Per Day (ICD-10-PCS; 2019-02-15)
PROC: 0JH63XZ Insertion of Tunneled Vascular Access Device into Chest Subcutaneous Tissue and Fascia, Percutaneous Approach (ICD-10-PCS; 2019-02-18)
PROC: 02HV33Z Insertion of Infusion Device into Superior Vena Cava, Percutaneous Approach (ICD-10-PCS; 2019-02-18)
DX: K74.60 Unspecified cirrhosis of liver (principal); N18.6 End stage renal disease; N17.0 Acute kidney failure with tubular necrosis; N39.0 Urinary tract infection, site not specified; I12.0 Hypertensive chronic kidney disease with stage 5 chronic kidney disease or end stage renal disease; K52.9 Noninfective gastroenteritis and colitis, unspecified; E11.22 Type 2 diabetes mellitus with diabetic chronic kidney disease; Z99.2 Dependence on renal dialysis; Z79.4 Long term (current) use of insulin; E79.0 Hyperuricemia without signs of inflammatory arthritis and tophaceous disease; D69.6 Thrombocytopenia, unspecified; K75.4 Autoimmune hepatitis; E78.5 Hyperlipidemia, unspecified; D63.8 Anemia in other chronic diseases classified elsewhere; K20.9 Esophagitis, unspecified; M06.9 Rheumatoid arthritis, unspecified; K44.9 Diaphragmatic hernia without obstruction or gangrene; K22.2 Esophageal obstruction; K29.70 Gastritis, unspecified, without bleeding
CPT/HCPCS: 36415; 36556; 36558; 43239; 50200; 71045; 71046; 74176; 74470; 76705; 76770; 76937; 76942; 77001; 80048; 80061; 80076; 81001; 81015; 81161; 81220; 82044; 82105; 82140; 82270; 82436; 82570; 82607; 82728; 83036; 83540; 83605; 83630; 83690; 83735; 83993; 84100; 84156; 84165; 84300; 84443; 84466; 84550; 85025; 85045; 85610; 85730; 86021; 86039; 86160; 86225; 86335; 86850; 86900; 86920; 87040; 87045; 87086; 87177; 87390; 87493; 88305; 88312; 90962; 93005; 93306; 94640; 97139; 99152; 99153; 99284; C1769; C1892; G0433; G0435; J0360; J0696; J1644; J1940; J2001; J2060; J2150; J2250; J2270; J2405; J3010; J7030; J7050; J7512; P9016; P9034; P9047

== ENCOUNTER 2019-04-04 12:18 | Observation (INO) | payer MEDICARE ==
[~2019-04-04] VITALS: Ht 160 cm; Wt 62.8 kg
[~2019-04-04 12:18] MED LIST changes: +CALCIUM 500+D1 EACH; +OMEPRAZOLE20 M1 PO; +PANTOPRAZOLE SO40 MG PO; +SPIRONOLACTONE25 MG PO; +ULTRAM50 MG PO; +VITAMIN D400 UNIT PO
--- NOTE | 2019-04-04 13:05 | NUR ---
PATIENT TO ROOM 10
--- NOTE | 2019-04-04 14:25 | NUR ---
MULTIPLE IV ATTEMPTS, UNSUCCESSFUL. LAB CALLED
--- NOTE | 2019-04-04 14:31 | Diagnostic Imaging Report ---
History:Confusion, altered mental status Comparison studies: None Technique: Axial images were obtained from the skull base to the vertex. Coronal and sagittal images reconstructed from the axial data. Dose modulation, iterative reconstruction, and/or weight based adjustment of the mA/kV was utilized to reduce the radiation dose to as low as reasonably achievable. Intravenous contrast: None Findings: Scalp/skull: No abnormalities. Extra-axial spaces: No masses. No fluid collections. Brain sulci: Mildly prominent. Ventricles: Mild compensatory dilatation. No hydrocephalus. Parenchyma: Periventricular hypodensities in the supratentorial white matter are small vessel ischemic changes. No masses, hemorrhage, acute or chronic cortical vascular insults. Sellar/suprasellar region: No abnormalities. Craniocervical junction: Patent foramen magnum. No Chiari one malformation. Incidental findings: Atherosclerotic calcifications in the carotid siphons . Impression: No acute abnormalities. Chronic findings: 1. Mild generalized volume loss. 2. Mild supratentorial white matter small vessel ischemic changes. Signed by: DR Nitin Greenwood M.D. on 04/04/2019 2:56 PM
--- NOTE | 2019-04-04 14:43 | Diagnostic Imaging Report ---
History: Low back pain Comparison studies: CT abdomen and pelvis 02/25/2019 Technique: Axial images were obtained of the lumbar spine. Coronal and sagittal images reconstructed from the axial data. Dose modulation, iterative reconstruction, and/or weight based adjustment of the mA/kV was utilized to reduce the radiation dose to as low as reasonably achievable. Intravenous contrast: None Findings: Number of non-rib bearing vertebral bodies: 5 Alignment: Normal lordosis. No scoliosis. Soft tissues: No abnormalities. Paraspinal muscles: Unremarkable. Vertebrae: Compared to the CT of the abdomen and pelvis on 02/25/2019, there is a new central compression fracture of the L1 vertebral body with 60% central height loss. There is no osseous retropulsion or indentation along the thecal sac. No extension to the posterior elements. There is cortical step off at the superior and inferior endplates along with mild fat stranding within the adjacent paravertebral soft tissues . The remaining vertebral body heights are maintained. Degenerative changes: L1-L2: No abnormalities. L2-L3: No abnormalities. L3-L4: Mildly degenerated disc without significant spinal canal or neural foraminal stenosis. L4-L5: Mildly degenerated disc with symmetric disc bulge. No significant spinal canal or neural foraminal stenosis. L5-S1: Mildly degenerated disc with symmetric disc bulge. No significant spinal canal or neural foraminal stenosis. Sacroiliac joints: No degenerative changes. IMPRESSION: 1. New L1 compression fracture with 60% central height loss (AOS A2) when compared to the CT of the abdomen and pelvis on 02/25/2019. No osseous retropulsion or compromise of the thecal sac. No suspicious underlying lesion. Mild paravertebral soft tissue fat stranding suggests subacute injury. 2. No additional fractures. 3. No significant spinal canal or neural foraminal stenosis. Signed by: DR Nitin Greenwood M.D. on 04/04/2019 3:08 PM
[2019-04-04 15:30] LABS: BASOPHILS % 0.1 % (0.0-1.0); HEMATOCRIT 26.1 % (34.2-44.1); HEMOGLOBIN 9.1 g/dL (12.0-16.0); LYMPHOCYTES # (AUTO) 0.6 (1.0-3.2); LYMPHOCYTES % 4.8 % (18.0-39.1); MEAN CORPUSCULAR HEMOGLOBIN 31.3 pg (28-32); MEAN CORPUSCULAR HGB CONC 34.9 g/dL (31-35); MEAN CORPUSCULAR VOLUME 89.7 fL (81-99); MONOCYTES # (AUTO) 0.4 (0.2-0.8); MONOCYTES % 3.6 % (4.4-11.3); NEUTROPHILS % 90.3 % (38.7-80.0); RED BLOOD COUNT 2.91 x10e6/uL (3.6-5.1); RED CELL DISTRIBUTION WIDTH 18.6 % (11.7-14.4)
[2019-04-04 15:50] LABS: ALBUMIN 2.9 g/dL (3.5-5.0); ALBUMIN/GLOBULIN RATIO 1.1 (0.8-2.0); ANION GAP 21.8 mmol/L (8-16); CALCIUM 9.4 mg/dL (8.4-10.2); CREATININE, SERUM 5.96 mg/dL (0.57-1.11); PLATELET COUNT 44 x10e3/uL (140-360); POTASSIUM 3.8 mmol/L (3.5-5.1)
[2019-04-04 15:58] LABS: CREATINE KINASE MB 2.1 ng/mL (0-5.0)
[2019-04-04 16:30] LABS: PLATELET ESTIMATE MARKEDLY DECREASED
[2019-04-04] MEDS ORDERED: LACTULOSE SYRUP 20 GM/30 ML UDC PO PRN (16:45)
[2019-04-04] MEDS: LIDOCAINE 4% PATCH TP SCH (17:47)
[2019-04-04] MEDS ORDERED: ACETAMINOPHEN 325 MG TAB PO PRN (18:30)
[2019-04-04] MEDS ORDERED: HYDRALAZINE HCL 20 MG/ML VIAL IV PRN (18:30)
[2019-04-04] MEDS ORDERED: ONDANSETRON HCL INJ 2MG/ML 2ML 2 MG/ML VIAL IV PRN (18:30)
--- NOTE | 2019-04-04 18:55 | NUR ---
PT HR BECAME ELEVATED, HR 122. ER MD NOTIFIED AND AWARE. REPEAT EKG PERFORMED AND GIVEN TO ER MD FOR EVAL. PT DENIES CP OR SOB AT THIS TIME. PT SITTING UP IN STRETCHER. DENIES ANY PAIN AT THIS TIME. RESP EVEN/UNLABORED. BED IS LOCKED AND IN LOWEST POSITION. CALL LIGHT IS IN REACH IF IN NEED FOR ASSISTANCE.
[2019-04-04] MEDS ORDERED: QUETIAPINE FUMA25 MG PO (19:14)
[2019-04-04] MEDS ORDERED: SEROQUEL25 MG PO (19:14)
[2019-04-04] MEDS ORDERED: MIDODRINE HCL2.5 MG PO (19:14)
[2019-04-04] MEDS ORDERED: PREDNISONE10 MG PO (19:14)
[2019-04-04] MEDS ORDERED: XIFAXAN550 MG PO (19:14)
[2019-04-04] MEDS ORDERED: CALCIUM CARBON500 MG PO (19:14)
[2019-04-04] MEDS ORDERED: ULTRAM50 MG PO (19:14)
[2019-04-04] MEDS ORDERED: PANTOPRAZOLE SO40 MG PO (19:14)
[2019-04-04] MEDS ORDERED: B COMPLEX1 EACH PO (19:14)
[2019-04-04] MEDS ORDERED: CLONAZEPAM0.5 MG PO (19:14)
[2019-04-04] MEDS ORDERED: LACTULOSE20 GM/30 M PO (19:14)
[2019-04-04] MEDS ORDERED: D5.45%NS/KCL 20MEQ 1,000 ML IV ONE (19:15)
[2019-04-04] MEDS ORDERED: METOPROLOL TARTRATE INJ 1 MG/ML VIAL IV ONE (19:15)
--- NOTE | 2019-04-04 19:40 | NUR ---
Patient received via stretcher from ER. Awake and alert, oriented to name and but not place. Patient displayed intermittent confusion. No sign of pain or respiratory distress. Admission history obtained from daughter via phone and from medical chart. Initial physical assessment conducted. Fall precautions in place. Patient instructed to call for assistance when needed. Call light within reach.
[2019-04-04 20:35] VITALS: BP 155/83
--- NOTE | 2019-04-04 20:40 | NUR ---
Blood specimen sent to lab for blood type and cross.
[2019-04-04 21:10] VITALS: BP 155/83
[2019-04-04] MEDS: RIFAXIMIN 200 MG TAB PO SCH (21:23)
--- NOTE | 2019-04-04 21:27 | NUR ---
Dr. Ida Flores paged regarding "Routine Consult". Awaiting call back.
--- NOTE | 2019-04-04 22:00 | NUR ---
Patient/daughter informed of platelet transfusion. Daughter, Jeannine Huston gave consent via phone with Sharon (charge Nurse) serving as a witness.
[2019-04-04 22:59] VITALS: BP 137/64
[2019-04-04] MEDS: TRAMADOL HCL 50 MG TAB PO PRN (23:15)
[2019-04-04] MEDS ORDERED: SODIUM CHLORIDE 0.9% 250ML 250 ML ONE (23:22)
--- NOTE | 2019-04-05 00:08 | NUR ---
Platelet transfusion started. Vital signs WNL. Will continue to monitor patient.
--- NOTE | 2019-04-05 02:09 | NUR ---
DR. Ida Flores here to see patient
--- NOTE | 2019-04-05 03:00 | NUR ---
Platelet transfusion completed. No adverse reaction noted.
[2019-04-05 04:13] VITALS: BP 139/64
[2019-04-05 05:03] LABS: BASOPHILS % 0.1 % (0.0-1.0); EOSINOPHILS % 0.1 % (0.0-6.0); HEMATOCRIT 23.2 % (34.2-44.1); LYMPHOCYTES # (AUTO) 0.5 (1.0-3.2); LYMPHOCYTES % 5.4 % (18.0-39.1); MEAN CORPUSCULAR HEMOGLOBIN 31.4 pg (28-32); MEAN CORPUSCULAR HGB CONC 34.5 g/dL (31-35); MONOCYTES # (AUTO) 0.3 (0.2-0.8); MONOCYTES % 3.7 % (4.4-11.3); NEUTROPHILS # (AUTO) 7.5 (2.1-6.9); NEUTROPHILS % 89.5 % (38.7-80.0); PLATELET COUNT 77 x10e3/uL (140-360); RED BLOOD COUNT 2.55 x10e6/uL (3.6-5.1); RED CELL DISTRIBUTION WIDTH 18.8 % (11.7-14.4)
[2019-04-05 05:48] LABS: ALBUMIN 2.9 g/dL (3.5-5.0); ALBUMIN/GLOBULIN RATIO 1.1 (0.8-2.0); ANION GAP 19.8 mmol/L (8-16); CALCIUM 9.7 mg/dL (8.4-10.2); CREATININE, SERUM 6.52 mg/dL (0.57-1.11); POTASSIUM 3.8 mmol/L (3.5-5.1)
--- NOTE | 2019-04-05 07:00 | NUR ---
Walking rounds done. Patient resting comfortably. BSSR given to oncoming nurse regarding patient's status.
--- NOTE | 2019-04-05 07:25 | NUR ---
RECD PT IN BED RESTING NO S/S DISCOMFORT.
[2019-04-05 08:00] VITALS: BP 119/55
[2019-04-05] MEDS: RIFAXIMIN 200 MG TAB PO SCH (09:00)
[2019-04-05] MEDS: PANTOPRAZOLE SOD 40 MG TABEC PO SCH (09:00)
[2019-04-05] MEDS ORDERED: CLONAZEPAM 0.5 MG TAB PO SCH (09:00)
[2019-04-05] MEDS: LACTULOSE SYRUP 20 GM/30 ML UDC PO SCH ×2 (09:00→17:00)
[2019-04-05] MEDS: PREDNISONE 10 MG TAB PO SCH (09:00)
--- NOTE | 2019-04-05 10:55 | NUR ---
SPOKE WITH DAUGHTER TELEPHONE CONSENT OBTAINED FOR DIALYSIS,[facility]
--- NOTE | 2019-04-05 11:10 | Diagnostic Imaging Report ---
Abdominal ultrasound Clinical History: Cirrhosis Discussion: Sonographic evaluation of the the abdomen is performed. The liver has normal size and measures 11.9 cm in length. The liver demonstrates heterogeneous echogenicity and lobulated contour, without focal mass. There is no intra or extrahepatic biliary dilatation. The common bile duct measures 2 mm. The gallbladder has been removed. The main portal vein diameter is normal, measuring 8 mm. The pancreas was not well seen secondary to bowel gas. There is no ascites. The right and the left kidney measure 9.1 and 9.7 cm in length respectively and are normal in size. There is no renal mass, hydronephrosis, or shadowing renal calculus. The spleen measures 9.7 cm in length and is normal in echotexture. Segments of the inferior vena cava and aorta visualized demonstrate no abnormality. Impression: 1. Cirrhotic changes of the liver. 2. Status post cholecystectomy. Signed by: Dr. Canelo Abraham MD on 04/05/2019 11:07 AM
[2019-04-05 12:00] VITALS: BP 139/67
--- NOTE | 2019-04-05 13:13 | NUR ---
SPOKE WITH JOHNY ALICEA RE; MEDICATION ,FAMILY CONCERNED ABOUT HOME MEDS,ORDERS TO THANH PINEDA
[2019-04-05] MEDS ORDERED: MELATONIN 5 MG TABLET PO PRN (14:00)
--- NOTE | 2019-04-05 14:53 | Diagnostic Imaging Report ---
MRI SPINE LUMBAR WO HISTORY: Back pain COMPARISON: Lumbar spine CT 04/04/2019; CT of the abdomen 02/25/2019 TECHNIQUE: Sagittal T1, sagittal T2, sagittal STIR, axial T2, coronal T2, and axial proton density weighted images of the lumbar spine were obtained without contrast. DISCUSSION: Number of non-rib bearing lumbar vertebral bodies: 5. Alignment: Normal lordosis. No scoliosis. Vertebrae: Moderate L1 vertebral compression fracture is associated with mild marrow edema; there is no significant retropulsion. No additional fractures, infection or neoplasm. Conus medullaris: Normal, ends at L1-L2 Cauda equina: No masses or arachnoiditis. Posterior paraspinal muscles: Well preserved. There is mild paraspinal muscle edema in the lower lumbar spine. Soft tissues: A few small T2 hyperintense lesions in the kidneys are likely cysts. Small amount of ascites is partially imaged. There is mild disc degeneration in the lower lumbar spine. T12-L1: Patent canal and foramina. L1-L2: Patent canal and foramina. L2-L3: Patent canal and foramina. L3-L4: Patent canal and foramina. L4-L5: Mild right foraminal stenosis due to disc bulge and facet arthrosis. No significant canal left foraminal stenosis. L5-S1: Mild bilateral foraminal stenoses due to disc bulge and facet arthrosis. No significant canal stenosis. IMPRESSION: 1. Moderate L1 vertebral compression fracture is associated with mild marrow edema. This may be subacute-late acute. No significant retropulsion. 2. No other acute osseous abdomen bodies. 3. Mild lower lumbar disc degeneration without significant canal stenosis. Signed by: Dr. Ghulam Stahl M.D. on 04/05/2019 2:50 PM
[2019-04-05 14:59] LABS: INR 1.03; PROTHROMBIN TIME 14.1 seconds (11.9-14.5)
[2019-04-05 15:00] LABS: PARTIAL THROMBOPLASTIN TIME 25.7 seconds (23.8-35.5)
[2019-04-05 16:00] VITALS: BP 147/70
[2019-04-05 17:27] LABS: BILIRUBIN,URINE 1+ (NEGATIVE); CLARITY,URINE SL CLOUDY (CLEAR); COLOR,URINE STRAW (YELLOW); KETONES,URINE TRACE (NEGATIVE); LEUKOCYTE ESTERASE ,URINE NEGATIVE (NEGATIVE); NITRITE,URINE NEGATIVE (NEGATIVE); PROTEIN,URINE DIPSTICK 2+ (NEGATIVE); URINE UROBILINOGEN 1 mg/dL (0.2 - 1)
[2019-04-05 17:43] LABS: BACTERIA,URINE MANY /HPF; RBC,URINE >50 /HPF (0-5)
--- NOTE | 2019-04-05 18:08 | NUR ---
PT UP IN BED NO DISTRESS NOTED,DENIES PAIN,STRAGHT CATH FOR URINE CULTURED ORDERD
--- NOTE | 2019-04-05 19:15 | NUR ---
Bedside nursing shift report with morning nurse. Pt alert and oriented to name, lying in bed HOB 45 degrees. No s/s of pain at this time. Call light within reach. Bed low and locked.
[2019-04-05] MEDS: RIFAXIMIN 550 MG TABLET PO SCH (20:39)
[2019-04-05 20:56] VITALS: BP 133/89
--- NOTE | 2019-04-05 21:10 | Consultation ---
DATE OF CONSULTATION: Nephrology Consultation Note REASON FOR CONSULTATION: Dialysis management. HISTORY OF PRESENT ILLNESS: This is a 68-year-old female with known history of liver cirrhosis of unknown etiology. Also, ESRD on dialysis. Now, likely secondary to hepatorenal syndrome. Also, has underlying hepatic encephalopathy who presents to the ED with underlying confusion and encephalopathy. The patient was recently admitted to [facility] in [facility] due to encephalopathy and at that time, she was prescribed some rifaximin as well as oral lactulose. The patient decided to decrease the amount of lactulose since her discharge from [facility] and now reports with worsening confusion. The patient during my evaluation was alert, awake, oriented x2, but seems to have improved compared to yesterday according to the daughter. She denies any chest pain, palpitation, nausea, vomiting. The patient looks clinically dehydrated today on examination. She has not had much oral intake. She is scheduled for hemodialysis today as per her schedule. She did not receive her 2nd renal biopsy since she has been discharged from the [facility]. REVIEW OF SYSTEMS: Pertinent positive: Encephalopathy. The rest of 14-point review of systems have been reviewed with the patient and are negative. ALLERGIES: ALLERGIES TO DRUG IS TOFACITINIB. HOME MEDICATIONS: 1. Calcium carbonate. 2. Lactulose. 3. Midodrine 5 mg p.o. t.i.d. 4. Seroquel. 5. Rifaximin. 6. Vitamin B12. 7. Vitamin B complex. 8. Protonix. 9. Prednisone. 10. Tramadol. PAST MEDICAL HISTORY: Liver cirrhosis of unknown etiology, ESRD on dialysis, likely secondary to hepatorenal syndrome, chronic hypotension, hepatic encephalopathy, liver cirrhosis. PAST SURGICAL HISTORY: Has a dialysis catheter in the right chest wall. PAST FAMILY HISTORY: Reports hypertension and diabetes. SOCIAL HISTORY: No drugs. No alcohol. Does not smoke. She has very good social support. Her daughter was at bedside today. LABORATORY FINDINGS: Show white count is 8.3, hemoglobin 8, hematocrit is 23, platelets of 77. Chemistry, sodium was 143, potassium 3.8, chloride 108, bicarb 26, anion gap of 19. BUN 66, creatinine 6.5, calcium is 9.7, total bilirubin is 4.5. AST 99, ALT 97, alkaline phosphatase 322. Ammonia is 103. Troponins were negative. Albumin was 2.9. Hepatitis panel was negative. Ammonia level was 131, elevated and now 103. MICROBIOLOGY: None. IMAGING STUDIES: CT brain was found to be negative. CT lumbar spine shows a new L1 compression fracture of 60% central height loss when compared to CT of the abdomen and pelvis on 02/25/2019. No osseous the patient has underlying lesion. Mild paravertebral soft tissue fat stranding suggestive of subacute injury. No significant spinal canal or neural foraminal stenosis. No additional fractures. Abdominal ultrasound shows cirrhotic changes of the liver. MRI of the lumbar spine pending. PHYSICAL EXAMINATION: VITAL SIGNS: Temperature is 96.9, pulse 88, respiratory rate is 20, blood pressure 139/69, pulse ox 98% on room air. GENERAL: Not in acute distress. Alert and oriented x3. Cooperative on examination. HEENT: Head; normocephalic, atraumatic. Eyes; pupils are equal, round, and reactive to light bilaterally. Extraocular movements intact bilaterally. Throat; no evidence of erythema or exudates in the posterior pharynx. Has poor dentition. NECK: Supple. Good range of motion. PULMONARY: Clear to auscultation bilaterally. No wheezing, no rales, no rhonchi, no crackles appreciated. CARDIOVASCULAR: Positive S1 and S2. No murmurs, rubs, or gallops appreciated. ABDOMEN: Soft, nondistended, and nontender to palpation. Bowel sounds present. MUSCULOSKELETAL: Strength is 5/5 throughout. No evidence of any muscle deficits on examination. No weakness appreciated. NEUROLOGIC: Cranial nerves 2 through 12 grossly intact. No evidence of any neurological deficits on exam. SKIN: Intact. Warm to touch. Good cap refill. PSYCHIATRIC: Normal affect and mood. EXTREMITIES: No edema. Good range of motion throughout. IMPRESSION: 1. End stage renal disease, on hemodialysis Mtvhas-Kmthepchw-Vwrawm. 2. Anemia of end-stage renal disease. 3. Secondary hyperparathyroidism. 4. Liver cirrhosis. PLAN: At this time, her renal etiology is likely to be from a hepatorenal syndrome. She did have a renal biopsy several weeks ago. She does need a repeat at some point. Likely, it can be performed as an outpatient. On any rate, the patient looks clinically dehydrated on exam. She will go ahead and get receive hemodialysis today as per her schedule. She will get a 3K bath 2.5 calcium, ultrafiltration 0, durations 3 hours. As for her hepatic encephalopathy, she is on lactulose. She is not producing any bowel movements at this time. We will continue to see if we can have her produce some bowel movement. If not, we need to increase the lactulose. As for her anemia, her hemoglobin is 8. We will put her on some erythropoietin 28300 units subcu [id number]-Cedukq. Continue on phosphorus binders and renal diet. Continue to follow. Thank you so much for this consultation. We will continue to follow with you guys. I discussed overall plan of care with the patient, the patient's daughter, and nursing staff present throughout the entire conversation. MD ELSY Wiggins/MODL /[id number]
[2019-04-05 21:38] VITALS: BP 133/89
[2019-04-05] MEDS ORDERED: HEPARIN SOD (PORCINE) 1000 UNIT/ML 10ML MDV IM ONE (23:30)
[2019-04-05] MEDS ORDERED: HEPARIN SOD (PORCINE) 5,000 UNIT/ML VIAL INJ NR (23:45)
[2019-04-05] MEDS ORDERED: HEPARIN SOD (PORCINE) 1000 UNIT/ML 10ML MDV INJ NR (23:45)
[2019-04-06] VITALS (9 sets, daily range): BP systolic 114–139; BP diastolic 58–78
[2019-04-06] MEDS: TRAMADOL HCL 50 MG TAB PO PRN (00:09)
[2019-04-06 06:09] LABS: EOSINOPHILS % 0.3 % (0.0-6.0); LYMPHOCYTES # (AUTO) 0.5 (1.0-3.2); LYMPHOCYTES % 5.5 % (18.0-39.1); MEAN CORPUSCULAR HEMOGLOBIN 30.4 pg (28-32); MEAN CORPUSCULAR VOLUME 92.1 fL (81-99); MONOCYTES # (AUTO) 0.4 (0.2-0.8); MONOCYTES % 4.7 % (4.4-11.3); NEUTROPHILS % 88.1 % (38.7-80.0); PLATELET COUNT 63 x10e3/uL (140-360)
[2019-04-06 06:26] LABS: HEMATOCRIT 22.1 % (34.2-44.1); HEMOGLOBIN 7.3 g/dL (12.0-16.0)
[2019-04-06 06:36] LABS: ALBUMIN 2.7 g/dL (3.5-5.0); ALBUMIN/GLOBULIN RATIO 1.1 (0.8-2.0); ANION GAP 14.5 mmol/L (8-16); CALCIUM 8.5 mg/dL (8.4-10.2); CREATININE, SERUM 2.94 mg/dL (0.57-1.11); POTASSIUM 3.5 mmol/L (3.5-5.1)
--- NOTE | 2019-04-06 06:39 | NUR ---
Spoke with BRANDON Jorge via phone regarding abnormal Hgb 7.3, HCT 22.1, Informed to monitor Pt and f/u with rounding provider.
--- NOTE | 2019-04-06 07:20 | NUR ---
PT IN BED SLEEPING NO DISTRESS NTOED,BED ALARM ON
[2019-04-06] MEDS: PREDNISONE 10 MG TAB PO SCH (09:00)
[2019-04-06] MEDS: LIDOCAINE 4% PATCH TP SCH (09:00)
[2019-04-06] MEDS: RIFAXIMIN 550 MG TABLET PO SCH ×2 (09:00→20:33)
[2019-04-06] MEDS: PANTOPRAZOLE SOD 40 MG TABEC PO SCH (09:00)
[2019-04-06] MEDS: LACTULOSE SYRUP 20 GM/30 ML UDC PO SCH ×2 (09:00→17:00)
--- NOTE | 2019-04-06 13:35 | NUR ---
CALL RECEIVED FROM LAKESHA FROM RADIOLOGY REGARDING KYPHOPLASTY FOR THE PT. INFORMED PT WAS ADMITTED W BACK PAIN. STATES HE WOULD CALL ME BACK TO SCHEDULE.
--- NOTE | 2019-04-06 14:19 | NUR ---
Nutrition Screen Note RD Recommendation for Physician: - Continue Renal diet Plan of Care: RD following, monitoring for tolerance and adequacy Nutrition reason for involvement: Nutrition Risk Trigger- MST Primary Diagnose(s): hepatic encephalopathy PMH: cirrhosis, ESRD on HD, hepatic encephalopathy Ht: 63 in Wt: 138.44 lb BMI: 24.5 kg/m2 IBW: [address] Assessment: (04/06) 68 YOF admitted for hepatic encephalopathy, seen today per MST screen. Pt reports good appetite and po intake currently, eating lunch at time of visit. Family at bedside reports decreased intake x 2 days MANAGER COUNCIL. Pt denies any difficulties chewing or swallowing and denies any GI distress. Pt and family at bedside report wt loss in the past 6 months related to fluid loss with HD initiation. Pt and family with no questions or concerns at time of visit. Chart reviewed. Labs and meds reviewed, LFTs elevated. Will continue to monitor. Current Diet: Renal diet Malnutrition Evaluation (04/06/19) The patient does not meet criteria for a specified degree of malnutrition at this time. Will re-evaluate at follow-up as appropriate. Diet Education Needs Assessment: Diet education not indicated. Diet tolerance: tolerating po Nutrition Care Level: low Signed: Claribel Kramer RD, LD, CNSC
--- NOTE | 2019-04-06 15:38 | NUR ---
CALL RECEIVED FROM DIR NOEL OF RADIOLOGY. STATES THE PT WOULD NOT BE ABLE TO HAVE KYPHOPLASTY IN THE NEXT 2 DAYS, BUT STATED THEY COULD SCHEDULE THE PT AN OUTPATIENT. WE AGREED CM WOULD SPEAK W FAMILY AND THE DOC REGARDING OUTPT KYPHO.
--- NOTE | 2019-04-06 15:41 | NUR ---
DISCUSSED OUTPATIENT KYPHOPLASTY W MICHAEL DURON AND NATALIE; BEDSIDE NURSE. DOMI STATES SHE WOULD HAVE THE PT DIALYZED TOMORROW AND F/U ON LABS IN THE AM. STATES IF THE FAMILY AGREES THEN IT WILL BE OK. STATES THE PT WILL NEED HOME HEALTH FOR SN AND PT EVAL AND TREAT. CM MET W THE PT AND HER SISTER MAUREEN AT THE BEDSIDE. BOTH WERE IN AGREEMENT W HOME HEALTH AND OUTPT KYPHOPLASTY. DISCUSSED CHOICE FOR HH W PT AND SISTER. PT CHOSE [facility] @ OFF: [phone] / FAX: [phone]. INFORMED MICHAEL DURON AND NATALIE.
--- NOTE | 2019-04-06 18:07 | NUR ---
PT UP IN BED MUCH MORE ALERT,.OUTPATIENT KHYOPLASTY SET UP FOR APRIL 28 AT 1130,FAMILY AWARE.DENIES PAIN
--- NOTE | 2019-04-06 19:15 | NUR ---
Bedside shift report with morning nurse. Pt alert to name, lying in bed HOB 45 degrees, eyes closed, no distress noted. Call light within reach. Bed locked. Bed alarm on.
--- NOTE | 2019-04-07 00:30 | NUR ---
Rounded with Dr. Ida Flores, no further orders
[2019-04-07 06:16] VITALS: BP 131/4
[2019-04-07 06:19] LABS: EOSINOPHILS % 0.3 % (0.0-6.0); HEMATOCRIT 23.8 % (34.2-44.1); HEMOGLOBIN 7.9 g/dL (12.0-16.0); LYMPHOCYTES # (AUTO) 0.8 (1.0-3.2); LYMPHOCYTES % 7.2 % (18.0-39.1); MEAN CORPUSCULAR HEMOGLOBIN 30.6 pg (28-32); MEAN CORPUSCULAR HGB CONC 33.2 g/dL (31-35); MEAN CORPUSCULAR VOLUME 92.2 fL (81-99); MONOCYTES # (AUTO) 0.5 (0.2-0.8); MONOCYTES % 4.3 % (4.4-11.3); NEUTROPHILS # (AUTO) 9.9 (2.1-6.9); NEUTROPHILS % 86.6 % (38.7-80.0); PLATELET COUNT 70 x10e3/uL (140-360); RED BLOOD COUNT 2.58 x10e6/uL (3.6-5.1); RED CELL DISTRIBUTION WIDTH 19.3 % (11.7-14.4)
[2019-04-07 06:41] LABS: ANION GAP 15.5 mmol/L (8-16); CALCIUM 9.3 mg/dL (8.4-10.2); CREATININE, SERUM 5.04 mg/dL (0.57-1.11); POTASSIUM 3.5 mmol/L (3.5-5.1)
--- NOTE | 2019-04-07 07:25 | NUR ---
Bedside shift report given to morning nurse. Pt alert lying in bed. Denies pain at this time. No distress noted.
[2019-04-07 07:29] VITALS: BP 134/74
[2019-04-07 08:00] VITALS: BP 134/74
[2019-04-07] MEDS ORDERED: SODIUM CHLORIDE 0.9% 1000ML 2,000 ML ONE (08:07)
[2019-04-07] MEDS: PREDNISONE 10 MG TAB PO SCH (08:50)
[2019-04-07] MEDS: LACTULOSE SYRUP 20 GM/30 ML UDC PO SCH ×2 (08:50→17:17)
[2019-04-07] MEDS: PANTOPRAZOLE SOD 40 MG TABEC PO SCH (08:50)
[2019-04-07] MEDS: RIFAXIMIN 550 MG TABLET PO SCH (08:53)
[2019-04-07] MEDS ORDERED: ONDANSETRON HCL 4 MG ORAL DISINTEGRATING TAB PO PRN (09:45)
[2019-04-07 11:21] VITALS: BP 117/74
[2019-04-07] MEDS ORDERED: IRON SUCROSE 100 MG in SODIUM CHLORIDE 0.9% 100 ML 100 ML IV SCH (11:30)
--- NOTE | 2019-04-07 11:34 | Progress Note ---
DATE: 04/07/2019 Nephrology Progress Note SUBJECTIVE: The patient is doing much better today. She is alert, awake, and oriented x3, back to normal baseline. She still has some confusion occasionally on examination. Breathing much better. She states eating and drinking much better today. PHYSICAL EXAMINATION: VITAL SIGNS: Temperature is 98.4, pulse is 101, respiratory rate 16, blood pressure 134/74, and pulse ox 99% on room air. GENERAL: Not in acute distress. Alert and oriented x3. Cooperative on examination. HEENT: Head; normocephalic, atraumatic. Eyes; pupils are equal, round, and reactive to light bilaterally. Extraocular movements intact bilaterally. Throat; no evidence of erythema or exudates in the posterior pharynx. Has poor dentition. NECK: Supple. Good range of motion. PULMONARY: Clear to auscultation bilaterally. No wheezing, no rales, no rhonchi, no crackles appreciated. CARDIOVASCULAR: Positive S1 and S2. No murmurs, rubs, or gallops appreciated. ABDOMEN: Soft, nondistended, and nontender to palpation. Bowel sounds present. MUSCULOSKELETAL: Strength is 5/5 throughout. No evidence of any muscle deficits on examination. No weakness appreciated. NEUROLOGIC: Cranial nerves 2 through 12 grossly intact. No evidence of any neurological deficits on exam. SKIN: Intact. Warm to touch. Good cap refill. PSYCHIATRIC: Normal affect and mood. EXTREMITIES: No edema. Good range of motion throughout. LABORATORY FINDINGS: Show white count 11.4, hemoglobin 7.9, hematocrit is 23.8, and platelets of 70. Chemistry; sodium 138, potassium 3.5, chloride 102, bicarb 24, anion gap of 15, BUN is 36, creatinine is 5, glucose 124, and calcium is 9.3. LFTs are elevated. Total bilirubin was 4.2, AST 97, ALT 95, and alkaline phosphatase 327. Ammonia level was 106 within normal range at this hospital. MICROBIOLOGY: None. IMAGING STUDIES: MRI of the lumbar spine shows a moderate L1 vertebral compression fracture associated with mild marrow edema. This may be subacutely acute. No significant repulsion. Mild lower lumbar disk degenerative without significant canal stenosis. IMPRESSION: 1. End-stage renal disease, on hemodialysis, Friday, Friday, and Friday. 2. Anemia of end-stage renal disease. 3. Secondary hyperparathyroidism. 4. Hepatic encephalopathy. PLAN: At this time, the patient is doing much better today on examination with no complaints. She is alert and oriented x3. HD scheduled for today, 3K bath, 2.5 calcium, ultrafiltration 1 L. The patient looks clinically hydrated on examination. Her hemoglobin stayed at 7.9. Put her on iron infusions as well as erythropoietin. Phosphorus binders and renal diet. Continue to monitor very closely. MD ELSY Wiggins/SHERI /[id number]
[2019-04-07] MEDS: LIDOCAINE 4% PATCH TP SCH (12:02)
--- NOTE | 2019-04-07 12:58 | NUR ---
ASSESSMENT: Spiritual concern Pt's daughter requested director technical visit. Pt thankful for supportive family and hopeful for improved health. Intervention: Provided hospitality and empathic listening. Provided prayer and information on how to reach director technical, if needed. Outcome: Pt & daughter expressed appreciation for visit. No need to follow at this time. RE BOONE [employer] Spiritual Care Department O: [phone] Pager: [phone] ([phone] number calling from)
[2019-04-07] MEDS ORDERED: SODIUM CHLORIDE 0.9% 250ML 250 ML ONE (13:16)
[2019-04-07 15:49] VITALS: BP 105/64
--- NOTE | 2019-04-07 17:31 | NUR ---
HOME HEALTH DISCHARGE NOTE PATIENT ADDRESS WHERE SERVICE WILL BE RECEIVED: [id number] [address] [address] PATIENT CONTACT NUMBER: [phone] NAME OF HOME HEALTH COMPANY: [employer] TELEPHONE/FAX NUMBER OF COMPANY: OFF: [phone] SERVICES TO RECEIVE: SKILLED NURSE EVAL AND TREAT AND PHYSICAL THERAPY EVAL AND TREAT ANTICIPATED DATE SERVICES WILL BEGIN: 04/08/2019 Please call the company above if you have not received a call to schedule a home visit within 24 hours of discharge.
[2019-04-07] MEDS ORDERED: Lidocaine Patch TP (18:34)
--- NOTE | 2019-04-07 19:20 | NUR ---
Report given to oncoming nurse of patient's status. NO s/s of acute distress noted. Side rails upx2, call light within reach, bed alarm on. Aware of discharge. Awaiting for daughter Jeannine.
--- NOTE | 2019-04-07 19:29 | NUR ---
aware of discharge. Patient cleared to discharge from 's standpoint
--- NOTE | 2019-04-07 19:45 | NUR ---
Patient /daughter given discharge instructions. Patient/daughter verbalized understanding. Telemetry box removed. Old IV on right hand removed with tip intact. Patient's vital signs WNL. [facility] via wheelchair.
--- NOTE | 2019-04-08 09:08 | Discharge Summary ---
CONSULTING PHYSICIANS: 1. Dr. Darion Flores with Gastroenterology. 2. Dr. Fermín Bhatti with Nephrology. PERTINENT HISTORY AND PHYSICAL FINDINGS AND CHIEF COMPLAINT: Back pain. The patient is a 68-year-old female admitted with complaints of sharp lower back pain that radiates down both of her legs. The pain started a few days ago. She denied fall, trauma, bladder, or bowel incontinence. PAST MEDICAL HISTORY: Significant for cirrhosis, hepatorenal syndrome, gastroesophageal reflux disease, hyperlipidemia, rheumatoid arthritis, chronic kidney disease requiring hemodialysis, and anemia of chronic disease. PAST SURGICAL HISTORY: , cholecystectomy, tonsillectomy, esophageal stricture, dilated. FAMILY HISTORY: Cancer in the sister, CVA in the sister, diabetes mellitus in the nephew. SOCIAL HISTORY: Noncontributory. ALLERGIES: TOFACITINIB. ADMITTING DIAGNOSES: 1. Hepatic encephalopathy. 2. L1 compression fracture. 3. Cirrhosis. 4. Chronic kidney disease requiring hemodialysis. 5. Anemia of chronic disease secondary to cirrhosis. 6. Rheumatoid arthritis. 7. Thrombocytopenia. DISCHARGE DIAGNOSES: 1. Hepatic encephalopathy. 2. Liver cirrhosis. 3. L1 compression fracture. 4. End-stage renal disease, on hemodialysis, Friday, Friday and Friday. 5. Leukocytosis. 6. Elevated LFTs. 7. Anemia of end-stage renal disease. 8. Secondary hyperparathyroidism. 9. Rheumatoid arthritis. 10. Ambulatory dysfunction. 11. Gastroesophageal reflux disease. On admission, WBCs 12.12, hemoglobin 9.1, hematocrit 26.1, platelets 44,000, PT 14.1, INR 1.03. Sodium 138, potassium 3.8, chloride 98, CO2 of 22, BUN 59, creatinine 5.96, estimated GFR 8, calcium 9.4, total bilirubin 4.2, AST 94, ALT 107, alkaline phosphatase 344. Creatine kinase 38, CK-MB 2.1, troponin I 0.095. Total protein 5.6, albumin 2.9. Urinalysis showed 2+ protein, trace amount of ketones, 4+ blood, 1+ bilirubin, negative for leukocyte esterases, negative for nitrites, RBC greater than 50, many bacteria. Antimitochondrial antibody was collected on April 07 and is still pending. Hepatitis A negative. Hepatitis B surface antigen negative. Hepatitis B core IgM antibody negative. Hepatitis C antibody less than 0.1. Urine culture, final result showed no growth after 36-48 hours. She had a brain CT which showed no acute abnormalities. Her CT of the lumbar spine showed new L1 compression fracture with 60% central height loss ( ) when compared with the CT of the abdomen and pelvis on 02/25/2019. No suspicious underlying lesion, mild paravertebral soft tissue fat stranding to suggest subacute injury. No acute fractures. No significant spinal canal or neural foraminal stenosis. Abdominal ultrasound showed cirrhotic changes of the liver, status post cholecystectomy. Lumbar spine MRI done on April 05 showed moderate L1 vertebral compression fracture associated with mild marrow edema which may be subacute to late acute, no other acute osseous abdomen bodies, mild lower lumbar disk degeneration without significant canal stenosis. Today the day of discharge, sodium 138, potassium 3.5, chloride 102, CO2 of 24, BUN 36, creatinine 5.04. Estimated GFR of 10. WBCs 11.4, hemoglobin 7.9, hematocrit 23.8, platelets 70,000, neutrophils 86.6. Case was discussed with Dr. Wooten, Dr. Jarret Briseno, who was covering for Dr. Wooten, Dr. Darion Flores and Dr. Bhatti. The patient will be discharge home. Activity level as tolerated. Continue renal diet. Follow up with PCP in 1-2 weeks. Follow up with Dr. Flores as directed. Continue outpatient hemodialysis as per usual routine. Kyphoplasty is planned on an outpatient basis. She had 1 L removed with hemodialysis today. Dictated by Luisito Ching, BRANDON Bassam Wooten MD HWP/MODL /[id number]
--- NOTE | 2019-04-08 09:19 | NUR ---
CALL RECEIVED FROM PT'S DTR TO VERIFY #'S FOR F/U MD'S AND NAMES. CALL TO DR. WHITE FOR RENAL. DR. WHITE STATES THE PT WAS REFERRED TO [facility], BUT CHOSE TO CHANGE TO DR PORRAS AT RENAL. CHIQUITA'S OFFICE # GIVEN. DR. FERRERA'S INFO ALSO GIVEN. DTR INQUIRED ABOUT A PROVIDER. GIVEN INFO ON HOW TO GET PROVIDER. STATES SHE WILL BEGIN ONLINE; DTR WAS FAMILIAR W PROCESS. DTR ALSO ASKED FOR DATE OF OUTPT KYPHOPLASTY. CALL TO RADIOLOGY. REFERRED TO [facility], BUT WAS NOT AVAILABLE. SPOKE W AJCQUELINE STATES SHE SAW HER ON THE BOOKS, BUT WOULD LIKE TO CLEAR IT W [facility] FIRST. JACQUELINE WAS GIVEN MS. MARTE'S CONTACT # @ [phone] AND CELL [phone]. CM CONTACT INFO GIVEN ALSO IF FURTHER ASSISTANCE NEEDED.
--- NOTE | 2019-04-12 09:29 | NUR ---
CALL RECEIVED FROM PT'S DTR REGARDING KYPHOPLASTY DATE. CALL TO DIR NOEL OF RADIOLOGY. STATES SHE WILL F/U W JACQUELINE AND GET BACK W THE DTR/MPOA. DTR STATES HH HAD NOT STARTED ALSO. STATES HER MOTHER WAS RECENTLY IN THE ER AND FELT SHE REALLY NEEDED HER PT. CALL TO RYAN GONZALEZ @ [phone] AND LEFT VM. CALL TO OFFICE @ [phone]. STATES THEY NEEDED THE ORDER SIGNED. INFORMED THE ORDER WAS ALREADY SIGNED AND FAXED. REFAXED TO [phone]
== END 2019-04-07 19:51 | disposition home or self-care (01) ==
LOC: ER 12:18 → ERHOLD 16:40 → MED/SURG3 19:55
PROVIDERS: ADMIT Internal Medicine; ATTEND Internal Medicine
DX: K72.90 Hepatic failure, unspecified without coma (principal); M48.56XA Collapsed vertebra, not elsewhere classified, lumbar region, initial encounter for fracture; N18.6 End stage renal disease; D69.3 Immune thrombocytopenic purpura; Z88.8 Allergy status to other drugs, medicaments and biological substances; K21.9 Gastro-esophageal reflux disease without esophagitis; E78.5 Hyperlipidemia, unspecified; Z80.9 Family history of malignant neoplasm, unspecified; Z82.3 Family history of stroke; Z83.3 Family history of diabetes mellitus; K74.60 Unspecified cirrhosis of liver; Z99.2 Dependence on renal dialysis; M06.9 Rheumatoid arthritis, unspecified; K76.7 Hepatorenal syndrome; D63.1 Anemia in chronic kidney disease; N25.81 Secondary hyperparathyroidism of renal origin; R18.8 Other ascites; D72.829 Elevated white blood cell count, unspecified; R79.89 Other specified abnormal findings of blood chemistry
CPT/HCPCS: 36415 ×4; 70450; 72131; 72148; 76700; 80048; 80053 ×3; 81001; 82105; 82140 ×3; 82550; 82553; 84484; 85025 ×4; 85610; 85730; 86255; 86900; 87086; 90935; 93005; 97116 ×2; 97162; 97530; 99284; G0378 ×4; J1644 ×2; J1756; J7030; J7050 ×2; J7512 ×3; P9034; S0164 ×3

== ENCOUNTER 2019-04-10 05:45 | Emergency (ER) | payer MEDICARE ==
[~2019-04-10] VITALS: Ht 160 cm; Wt 62.6 kg
[~2019-04-10 05:45] MED LIST changes: +B COMPLEX1 EACH PO; +CALCIUM CARBON500 MG PO; +CLONAZEPAM0.5 MG PO; +LACTULOSE20 GM/30 M PO; +Lidocaine Patch TP; +MIDODRINE HCL2.5 MG PO; +QUETIAPINE FUMA25 MG PO; +SEROQUEL25 MG PO; +XIFAXAN550 MG PO
[2019-04-10] MEDS ORDERED: HYDROMORPHONE 1MG/1ML INJ IM STA (07:49)
[2019-04-10] MEDS ORDERED: ONDANSETRON HCL 4 MG ORAL DISINTEGRATING TAB PO ONE (08:00)
[2019-04-10] MEDS ORDERED: KETOROLAC TROMETHAMINE 60 MG/2 ML VIAL IM ONE (08:00)
== END 2019-04-10 10:06 | disposition home or self-care (01) ==
LOC: ER 05:45
DX: M48.56XA Collapsed vertebra, not elsewhere classified, lumbar region, initial encounter for fracture (principal); Z82.49 Family history of ischemic heart disease and other diseases of the circulatory system
CPT/HCPCS: 99284; J1170; J1885; Q0162

== ENCOUNTER 2019-04-17 16:30 | Inpatient (IN) | payer MEDICARE ==
[~2019-04-17] VITALS: Ht 160 cm; Wt 62.6 kg
[2019-04-17] MEDS ORDERED: ONDANSETRON HCL INJ 2MG/ML 2ML 2 MG/ML VIAL IV NR (17:12)
[2019-04-17] MEDS ORDERED: MORPHINE SULFATE 2 MG/ML SYR 1ML IV NR (17:15)
--- NOTE | 2019-04-17 18:19 | NUR ---
RADIOLOGY AT BS FOR XRAY, TRAUMA COUNSELLOR AT BS FOR BLOOD DRAW
--- NOTE | 2019-04-17 18:45 | Diagnostic Imaging Report ---
EXAMINATION: CHEST SINGLE (PORTABLE) INDICATION: ^esrd on hd COMPARISON: None FINDINGS: AP view TUBES and LINES: There is a dialysis catheter with distal tip in the right atrium. LUNGS: Lungs are well inflated. There is no evidence of pneumonia or pulmonary edema. There is left basilar opacity likely atelectasis/effusion.. PLEURA: No pleural effusion or pneumothorax. HEART AND MEDIASTINUM: The cardiomediastinal silhouette is unremarkable. BONES AND SOFT TISSUES: No acute osseous lesion. Soft tissues are unremarkable. UPPER ABDOMEN: No free air under the diaphragm. IMPRESSION: Left basilar opacity likely due to atelectasis/effusion.. Signed by: Juan José Prather MD on 04/17/2019 6:43 PM
[2019-04-17] MEDS ORDERED: ONDANSETRON HCL INJ 2MG/ML 2ML 2 MG/ML VIAL IV PRN (19:15)
[2019-04-17 19:16] LABS: BASOPHILS % 0.1 % (0.0-1.0); EOSINOPHILS % 0.1 % (0.0-6.0); LYMPHOCYTES # (AUTO) 0.7 (1.0-3.2); LYMPHOCYTES % 9.7 % (18.0-39.1); MEAN CORPUSCULAR HEMOGLOBIN 32.8 pg (28-32); MEAN CORPUSCULAR HGB CONC 33.2 g/dL (31-35); MEAN CORPUSCULAR VOLUME 98.7 fL (81-99); MONOCYTES # (AUTO) 0.4 (0.2-0.8); MONOCYTES % 5.3 % (4.4-11.3); NEUTROPHILS # (AUTO) 5.6 (2.1-6.9); NEUTROPHILS % 82.9 % (38.7-80.0); RED BLOOD COUNT 2.32 x10e6/uL (3.6-5.1); RED CELL DISTRIBUTION WIDTH 21.8 % (11.7-14.4)
[2019-04-17 19:21] LABS: HEMATOCRIT 22.9 % (34.2-44.1); PLATELET COUNT 26 x10e3/uL (140-360)
[2019-04-17 19:22] LABS: INR 1.02
[2019-04-17 19:23] LABS: PARTIAL THROMBOPLASTIN TIME 26.9 seconds (23.8-35.5)
[2019-04-17 19:24] LABS: HEMOGLOBIN 7.6 g/dL (12.0-16.0)
[2019-04-17 19:34] LABS: ALBUMIN 2.8 g/dL (3.5-5.0); ANION GAP 15.9 mmol/L (8-16); CALCIUM 10.3 mg/dL (8.4-10.2); CREATININE, SERUM 4.66 mg/dL (0.57-1.11); MAGNESIUM 2.1 MG/DL (1.3-2.1); POTASSIUM 3.9 mmol/L (3.5-5.1)
[2019-04-17 19:40] LABS: CREATINE KINASE MB 2.6 ng/mL (0-5.0)
--- NOTE | 2019-04-17 21:00 | NUR ---
Received patient from ER, patient placed in bed, safety and fall precautions maintained as per hospital protocol: bed in lowest position and locked, needed items close to patient, patient encouraged and instructed to call for help at all times, patient is currently stable, will continue to monitor.
[2019-04-17 21:35] VITALS: BP 113/76
[2019-04-17 22:07] VITALS: BP 113/76
[2019-04-18] VITALS (9 sets, daily range): BP systolic 102–121; BP diastolic 55–66
[2019-04-18 02:27] LABS: CREATINE KINASE MB 2.5 ng/mL (0-5.0)
[2019-04-18 05:47] LABS: BASOPHILS % 0.2 % (0.0-1.0); EOSINOPHILS % 0.2 % (0.0-6.0); LYMPHOCYTES # (AUTO) 0.7 (1.0-3.2); LYMPHOCYTES % 11.8 % (18.0-39.1); MEAN CORPUSCULAR HEMOGLOBIN 32.5 pg (28-32); MEAN CORPUSCULAR HGB CONC 32.5 g/dL (31-35); MONOCYTES # (AUTO) 0.4 (0.2-0.8); MONOCYTES % 5.9 % (4.4-11.3); NEUTROPHILS # (AUTO) 4.9 (2.1-6.9); NEUTROPHILS % 80.1 % (38.7-80.0)
[2019-04-18 05:50] LABS: HEMOGLOBIN 6.5 g/dL (12.0-16.0)
[2019-04-18 05:52] LABS: PLATELET COUNT 19 x10e3/uL (140-360)
[2019-04-18 06:06] LABS: ALBUMIN 2.3 g/dL (3.5-5.0); ANION GAP 15.5 mmol/L (8-16); CALCIUM 9.5 mg/dL (8.4-10.2); CREATININE, SERUM 5.33 mg/dL (0.57-1.11); POTASSIUM 3.5 mmol/L (3.5-5.1)
--- NOTE | 2019-04-18 06:22 | NUR ---
hgb, hct, plt levels reported to BRANDON Jesus and ordered to inform DR. Bhatti, if he will like to dialyze with transfusion
--- NOTE | 2019-04-18 06:33 | NUR ---
Consult was called to [facility] and ordered to call Dr. Borrero.
--- NOTE | 2019-04-18 06:34 | NUR ---
BRANDON Jesus was made aware that Dr. Bhatti was made aware of the consult and he ordered to consult Dr. Borrero for the patient. She also ordered 2 units of prbc.
[2019-04-18] MEDS ORDERED: SODIUM CHLORIDE 0.9% 250ML 250 ML IV ONE (06:45)
--- NOTE | 2019-04-18 07:00 | NUR ---
RECEIVED PATIENT AWAKE RESTING IN BED NO S/S OF DISTRESS. BED LOW, WHEELS LOCKED, SIDE RAILS X2. CALL LIGHT IN REACH WILL CONTINUE TO MONITOR PATIENT.
--- NOTE | 2019-04-18 07:00 | NUR ---
Patient endorsed to next shift for continuity of care.
[2019-04-18 07:03] LABS: CREATINE KINASE MB 3.2 ng/mL (0-5.0)
--- NOTE | 2019-04-18 07:06 | NUR ---
Dr. PORRAS CALLED AND MESSAGE LEFT FOR CONSULT.
--- NOTE | 2019-04-18 07:16 | NUR ---
Spoke to MD Ida Rao for the consult, states will see patient today.
--- NOTE | 2019-04-18 07:20 | NUR ---
DR. LUCIANO ROUNDING ON PATIENT. ORDER TO GIVE 1 UNIT OF PRBC TODAY AND 1 UNIT OF PRBC TOMORROW WITH DIALYSIS.
[2019-04-18] MEDS ORDERED: EPOETIN ALFA-EPBX 10,000 UNIT/ML VIAL SC SCH (07:45)
[2019-04-18] MEDS: LACTULOSE SYRUP 20 GM/30 ML UDC PO SCH ×3 (09:54→20:42)
[2019-04-18] MEDS ORDERED: SODIUM CHLORIDE 0.9% 250ML 250 ML ONE (10:16)
--- NOTE | 2019-04-18 10:30 | NUR ---
BLOOD TRANSFUSION STARTED. PATIENT TOLERATING WELL, VITAL SIGNS STABLE. NO SIGNS OF REACTION. WILL CONTINUE TO MONITOR.
--- NOTE | 2019-04-18 12:34 | Consultation ---
DATE OF CONSULTATION: 04/18/2019 Renal Consultation REASON FOR CONSULTATION: End-stage renal disease. HISTORY OF PRESENT ILLNESS: A 69-year-old female with end-stage renal disease, on hemodialysis Friday, Friday, Friday, whose last dialysis was 04/16/2019, presented to [facility] for excruciating back pain. The patient has had back pain for months and was found to have L1 vertebral fracture. Pain got to the point where she was unable to move and the patient was brought to the emergency room. The patient was admitted and Nephrology consultation was called. REVIEW OF SYSTEMS: A 14-point review of systems completed. All systems negative other than mentioned in the HPI above. PAST MEDICAL HISTORY: 1. End-stage renal disease, on hemodialysis, Friday, Friday, Friday through tunneled dialysis catheter. 2. Cirrhosis. 3. GERD. 4. Dyslipidemia. 5. Rheumatoid arthritis. 6. Primary biliary cirrhosis. 7. Esophageal stricture. PAST SURGICAL HISTORY: 1. Cholecystectomy. 2. . 3. Knee replacement. 4. Tonsillectomy. 5. Tunneled dialysis catheter. SOCIAL HISTORY: No tobacco. No alcohol. No IV drugs. FAMILY HISTORY: No family history of kidney disease. ALLERGIES: NO KNOWN DRUG ALLERGIES. CURRENT MEDICATIONS: See list. PHYSICAL EXAMINATION: VITAL SIGNS: Blood pressure 105/64, pulse 81, respiratory rate 18, and temperature 97.7. GENERAL: No apparent distress. HEENT: Oropharynx clear. No scleral icterus. No peripheral edema. NECK: Supple. No elevation in jugular venous pressure. CHEST: Clear to auscultation anteriorly with right IJ tunneled dialysis catheter. CARDIOVASCULAR: Regular rhythm. No murmurs or rubs. ABDOMEN: Soft. Positive bowel sounds. No tenderness. No rebound. EXTREMITIES: No edema. No clubbing. No cyanosis. SKIN: Warm. LABORATORY DATA: Sodium 134, potassium 3.5, chloride 95, BUN 34, and creatinine 5.33. Total bilirubin 4.3, AST 86, ALT 79, and alkaline phosphatase 338. Albumin 2.3. White count 6.1, hemoglobin 6.5, hematocrit 20, and platelets 19. Platelets last admission on 04/07/2019 with 70,000. ASSESSMENT AND PLAN: 1. End-stage renal disease. We will plan for hemodialysis on Friday. 2. Lytes acceptable. 3. Anemia secondary to chronic kidney disease. We will check iron stores. The patient did get 1 unit of blood now. We will give the other unit of blood on dialysis in the morning. The patient is asymptomatic. 4. Thrombocytopenia due to liver disease? 5. Hypertension, controlled. 6. L1 vertebral fracture. Pain control. MD SIMA Vick/SHERI /[id number]
--- NOTE | 2019-04-18 14:05 | NUR ---
BLOOD TRANSFUSION COMPLETE. PATIENT TOLERATED WELL. VITAL SIGNS STABLE.
[2019-04-18 17:09] LABS: CREATINE KINASE MB 2.5 ng/mL (0-5.0)
--- NOTE | 2019-04-18 17:46 | NUR ---
CALL PLACED TO [facility] TO NOTIFY THEM OF PATIENT NEEDING HEMODIALYSIS TOMORROW 04/19/19.
[2019-04-18] MEDS ORDERED: TRAMADOL HCL 50 MG TAB PO PRN (20:45)
[2019-04-18] MEDS ORDERED: HYDRALAZINE HCL 20 MG/ML VIAL IV PRN (20:45)
--- NOTE | 2019-04-18 20:50 | NUR ---
RAMON LAZARO CLIENT ONBOARDING ANALYST DOING ROUNDS. NEW ORDER RECEIVED FOR LANDEN DEVI
[2019-04-18] MEDS: MIDODRINE 2.5 MG TAB PO SCH (20:52)
[2019-04-18] MEDS: QUETIAPINE FUMARATE 25 MG TAB PO SCH (20:59)
[2019-04-18] MEDS ORDERED: DIPHENHYDRAMINE HCL ELIX 12.5 MG/5 ML UDC PO PRN (21:00)
--- NOTE | 2019-04-18 21:18 | NUR ---
SPOKE TO RAMON LAZARO CORRUGATED SHEET MATERIAL SHEETER AT THIS TIME. NEW ORDER RECEIVED FOR STRAIGHT CATH PRN
[2019-04-19] VITALS (8 sets, daily range): BP systolic 96–126; BP diastolic 56–72
[2019-04-19 05:57] LABS: BASOPHILS % 0.2 % (0.0-1.0); EOSINOPHILS % 0.5 % (0.0-6.0); HEMATOCRIT 30.4 % (34.2-44.1); HEMOGLOBIN 10.2 g/dL (12.0-16.0); LYMPHOCYTES # (AUTO) 0.8 (1.0-3.2); LYMPHOCYTES % 13.3 % (18.0-39.1); MEAN CORPUSCULAR HEMOGLOBIN 30.4 pg (28-32); MEAN CORPUSCULAR HGB CONC 33.6 g/dL (31-35); MEAN CORPUSCULAR VOLUME 90.5 fL (81-99); MONOCYTES # (AUTO) 0.4 (0.2-0.8); MONOCYTES % 6.6 % (4.4-11.3); NEUTROPHILS # (AUTO) 4.8 (2.1-6.9); NEUTROPHILS % 77.1 % (38.7-80.0); RED BLOOD COUNT 3.36 x10e6/uL (3.6-5.1); RED CELL DISTRIBUTION WIDTH 21.7 % (11.7-14.4)
[2019-04-19 06:09] LABS: PLATELET COUNT 19 x10e3/uL (140-360)
[2019-04-19 06:15] LABS: % IRON SATURATION 88 % (15-50); ANION GAP 14.3 mmol/L (8-16); BLOOD UREA NITROGEN 45 mg/dL (7-26); BUN/CREATININE RATIO 7 (6-25); CALCIUM 9.6 mg/dL (8.4-10.2); CARBON DIOXIDE 29 mmol/L (22-29); CHLORIDE 95 mmol/L (98-107); CREATININE, SERUM 6.66 mg/dL (0.57-1.11); EST GLOMERULAR FILTRATION RATE 7 ML/MIN (60-); GLUCOSE 99 mg/dL (74-118); IRON 113 ug/dL (50-170); POTASSIUM 3.3 mmol/L (3.5-5.1); SODIUM 135 mmol/L (136-145); TOTAL IRON BINDING CAPACITY 129 ug/dL (261-478); TRANSFERRIN 92 mg/dL (180-382)
[2019-04-19 06:35] LABS: FERRITIN > 2000.00 ng/mL (4.63-204.00)
--- NOTE | 2019-04-19 06:39 | NUR ---
NOTIFIED DR. MAI LUCIANO AT THIS TIME REGARDING HGB 10.2 AND PLATELET 19, MD ORDERED NOT TO GIVE 2ND UNIT OF BLOOD. ALSO CONSENT FOR HEMODIALYSIS
[2019-04-19] MEDS: HYDROMORPHONE 1MG/1ML INJ IV PRN (08:52)
[2019-04-19] MEDS: LACTULOSE SYRUP 20 GM/30 ML UDC PO SCH ×3 (08:55→21:00)
[2019-04-19] MEDS: DOCUSATE SODIUM 100 MG CAP PO SCH ×2 (08:55→16:59)
[2019-04-19] MEDS: RIFAXIMIN 550 MG TABLET PO SCH ×2 (08:56→16:59)
[2019-04-19] MEDS: MIDODRINE 2.5 MG TAB PO SCH ×3 (08:56→21:00)
[2019-04-19] MEDS: PREDNISONE 10 MG TAB PO SCH (08:56)
[2019-04-19] MEDS: PANTOPRAZOLE SOD 40 MG TABEC PO SCH (08:56)
[2019-04-19] MEDS: MULTIVITAMINS/MINERALS TAB PO SCH (08:56)
[2019-04-19] MEDS: OYST-CAL-D 500MG TABLET PO SCH (08:56)
[2019-04-19] MEDS: LIDOCAINE 4% PATCH TP SCH (08:57)
[2019-04-19] MEDS ORDERED: NON-FORMULARY MEDICATION ([Lidocaine Patch] 1 EA) TP SCH (09:00)
[2019-04-19] MEDS ORDERED: VITAMIN B COMPLEX PO SCH (09:00)
[2019-04-19] MEDS ORDERED: POTASSIUM CHLORIDE 20 MEQ TAB CR PO STA (11:35)
--- NOTE | 2019-04-19 18:08 | NUR ---
HEMATOLOGY/ONCOLOGY CONSULTATION NOTE: REASON FOR CONSULTATION: Thrombocytopenia REQUESTING PHYSICIAN: Dr. Bassam Jackson CONSULTING PHYSICIAN: Dr. Nivia Segundo, Hematology/Oncology service HISTORY OF PRESENT ILLNESS: Ms. Mckeon is a pleasant 69-year-old female (my clinic patient) with primary biliary cirrhosis, chronic thrombocytopenia, rheumatoid arthritis on steroid/immunosuppressive therapy, end-stage renal disea se on HD MWF, HTN, GERD, and osteoporosis who has been admitted to [facility] through the emergency department for excruciating back pain worsening for the past few months found to have L1 vertebral fracture on CXR. There is plan for kyphoplasty later this week once renal function and platelet counts improve. Hematology/Oncology has been consulted to assist with management. Presently, patient is resting and receiving HD with nurse at bedside. She is very confused and unable to tell me her HPI. Most of this information has been obtained from previous medical records. REVIEW OF SYSTEMS: A 14-point review of systems unable to obtain secondary to altered mental status. ALLERGIES: NKDA PAST MEDICAL HISTORY: End-stage renal disease, Primary Biliary Cirrhosis, GERD, Dyslipidemia, Rheumatoid arthritis, Esophageal stricture PAST SURGICAL HISTORY: Cholecystectomy, , Knee replacement, Tonsillectomy, Tunneled dialysis catheter PAST FAMILY HISTORY: Noncontributory SOCIAL HISTORY: No history of tobacco use, alcohol use, or illicit drug use PHYSICAL EXAMINATION: VITAL SIGNS: Reviewed per EMR. GENERAL: No acute distress, confused SKIN: Warm, dry, intact HEENT: NC, AT. EOMI, no icterus NECK: Supple, nonmeningismus CARDIOVASCULAR: RRR PULMONARY: Decreased breath sounds bilaterally ABDOMEN: Soft, NTND, BS x 4 EXTREMITIES: No edema, no cyanosis NEUROLOGIC: Awake, alert, confused PSYCHIATRIC: Cooperative LABORATORY/RADIOLOGY DATA: Reviewed per electronic medical record CXR 04/17/2019 IMPRESSION: Left basilar opacity likely due to atelectasis/effusion.. ASSESSMENT AND PLAN: Ms. Mckeon is a pleasant 69-year-old female (my clinic patient) with primary biliary cirrhosis, chronic thrombocytopenia, rheumatoid arthritis on steroid/immunosuppressive therapy, end-stage renal disease on HD MWF, HTN, GERD, and osteoporosis who has been admitted to [facility] through the emergency department for excruciating back pain worsening for the past few months found to have L1 vertebral fracture on CXR. There is plan for kyphoplasty later this week once renal function and platelet counts improve. Hematology/Oncology has been consulted to assist with management. 1. Thrombocytopenia: Likely acute on chronic secondary to primary biliary cirrhosis. Will obtain baseline workup. Transfuse 1 jumbo platelet in planning for surgery. Patient is on prednisone daily for rheumatoid arthritis so this will help with risk for alloimmunization if multiple transfusions are required. CBC in the morning. No signs of active bleeding, no coagulopathy noted. Hopefully get platelet counts > 50,000 postoperatively. Monitor closely. 2. Anemia: Multifactorial. Secondary to anemia of chronic disease. No iron deficiency noted on labs. S/p 1 unit PRBC transfused with good response in hemoglobin. Started on Procrit. No signs of active bleeding. Check vitamin levels. Transfuse to keep hemoglobin > 7. Monitor closely. 3. ESRD: On HD MWF. Creatinine elevated. Nephrology on board. 4. L1 vertebral fracture: Planning for kyphoplasty pending platelet and anemia improvement, possible . 5. AMS: Hepatic encephalopathy? On Xifaxan and Lactulose. Monitor liver enzymes. Managed per primary team. 6. Rheumatoid arthritis: On Kevzara and Prednisone at home. Hold Kevzara for now. 7. DVT/GI Proph: SCDs for now. On Protonix. Above plan discussed with Dr. Segundo. Thank you for the consult. I will be available. Please call with questions.
[2019-04-19] MEDS ORDERED: SODIUM CHLORIDE 0.9% 1000ML 2,000 ML IV PRN (18:45)
[2019-04-19] MEDS ORDERED: HEPARIN SOD (PORCINE) 5,000 UNIT/ML VIAL SC ONE (18:45)
[2019-04-19] MEDS ORDERED: HEPARIN SOD (PORCINE) 1000 UNIT/ML SDV IV PRN (18:45)
[2019-04-19] MEDS ORDERED: SODIUM CHLORIDE 0.9% 1000ML 1,000 ML IV SCH (18:45)
--- NOTE | 2019-04-19 19:10 | NUR ---
BEDSIDE REPORT RECEIVED, PT IS JUST STARTING ON DIALYSIS TREATMENT AT BEDSIDE, VS WNL, NO DISTRESS NOTED, CONTINUE TO MONITOR
--- NOTE | 2019-04-19 19:30 | NUR ---
PT INCONTINENT OF STOOL, PT CLEANED AND CHANGED, SKIN INTACT, TELE ON PT, RIGHT CHEST PORT USED FOR DIALYSIS, RIGHT AC IN INTACAT, PT IS CONFUSED AT TIMES, NO DISTRESS NOTED, WILL CONTINUE TO MONITOR, GOING ON DIALYSIS
[2019-04-19 20:11] LABS: HIV 1&2 AB SCREEN NON-REACTIVE (NONREACTIVE)
[2019-04-19] MEDS: QUETIAPINE FUMARATE 25 MG TAB PO SCH (21:00)
--- NOTE | 2019-04-19 22:50 | NUR ---
PT FINISHED WITH DIALYSIS, TOLERATED WELL, VS WNL, PLATELETS GIVEN, 1 LITER OF FLUID PULLED OFF OF DIALYSIS,
[2019-04-20] VITALS (9 sets, daily range): BP systolic 104–145; BP diastolic 53–70
--- NOTE | 2019-04-20 | NUR ---
STUCK PT TWICE FOR LABS, NO BLOOD RECEIVED, PT REFUSES MORE LAB STICKS AT THIS TIME, PT IS CONFUSED, AND NOT COOPERATIVE AT THIS TIME, WILL ATTEMPT AGAIN, LATER
--- NOTE | 2019-04-20 04:00 | NUR ---
PT INCONTINENT OF STOOL AGAIN, DR HOGUE HERE TO SEE PT, NEW ORDERS RECEIVED, VS WNL, NO OTHER NEEDS
[2019-04-20 05:40] LABS: BASOPHILS % 0.1 % (0.0-1.0); EOSINOPHILS % 0.3 % (0.0-6.0); HEMATOCRIT 27.2 % (34.2-44.1); HEMOGLOBIN 8.7 g/dL (12.0-16.0); LYMPHOCYTES # (AUTO) 0.7 (1.0-3.2); LYMPHOCYTES % 9.6 % (18.0-39.1); MEAN CORPUSCULAR HEMOGLOBIN 29.8 pg (28-32); MEAN CORPUSCULAR VOLUME 93.2 fL (81-99); MONOCYTES # (AUTO) 0.5 (0.2-0.8); MONOCYTES % 6.8 % (4.4-11.3); NEUTROPHILS # (AUTO) 5.5 (2.1-6.9); NEUTROPHILS % 81.4 % (38.7-80.0); PLATELET COUNT 58 x10e3/uL (140-360); RED BLOOD COUNT 2.92 x10e6/uL (3.6-5.1); RED CELL DISTRIBUTION WIDTH 21.7 % (11.7-14.4)
[2019-04-20 06:05] LABS: ANION GAP 11.9 mmol/L (8-16); CALCIUM 8.7 mg/dL (8.4-10.2); CREATININE, SERUM 3.32 mg/dL (0.57-1.11); POTASSIUM 3.9 mmol/L (3.5-5.1)
--- NOTE | 2019-04-20 06:15 | NUR ---
LAB VALUES CALLED TO [facility] HOLLY, NEW ORDERS RECEIVED
--- NOTE | 2019-04-20 07:15 | NUR ---
Received patient, alert and in bed sleeping, on hemodialysis per reporting nurse, no adverse events, patient confused, had multiple soft stools per report, call light within reach, bed alarms in place, will monitor.
[2019-04-20] MEDS: LIDOCAINE 4% PATCH TP SCH (09:00)
--- NOTE | 2019-04-20 09:17 | Diagnostic Imaging Report ---
Abdominal ultrasound Clinical History: Cirrhosis Comparison: April 05, 2019 Discussion: Sonographic evaluation of the the abdomen is performed. The liver is atrophic and measures 10.4 cm in length. The liver demonstrates lobulated contour and heterogeneous echogenicity, without focal mass. There is no intra or extrahepatic biliary dilatation. The common bile duct measures 4 mm. The gallbladder has been removed. The main portal vein diameter is normal, measuring 9 mm. The pancreatic head, body, and proximal tail demonstrate no abnormality. Trace free fluid is seen in the right upper quadrant. The right and the left kidney measure 10.0 and 8.6 cm in length respectively and are normal in size. There is no renal mass, hydronephrosis, or shadowing renal calculus. The spleen measures 10.2 cm in length and is normal in echotexture. Segments of the inferior vena cava visualized demonstrate no abnormality. The aorta was not visualized. Impression: 1. Cirrhotic changes of the liver again noted. 2. Status post cholecystectomy. 3. Trace ascites. Signed by: Dr. Canelo Abraham MD on 04/20/2019 9:14 AM
[2019-04-20] MEDS: DOCUSATE SODIUM 100 MG CAP PO SCH ×2 (09:26→18:15)
[2019-04-20] MEDS: RIFAXIMIN 550 MG TABLET PO SCH ×2 (09:26→17:00)
[2019-04-20] MEDS: OYST-CAL-D 500MG TABLET PO SCH (09:26)
[2019-04-20] MEDS: PREDNISONE 10 MG TAB PO SCH (09:26)
[2019-04-20] MEDS: MULTIVITAMINS/MINERALS TAB PO SCH (09:26)
[2019-04-20] MEDS: PANTOPRAZOLE SOD 40 MG TABEC PO SCH (09:26)
[2019-04-20] MEDS: MIDODRINE 2.5 MG TAB PO SCH ×3 (09:26→21:00)
[2019-04-20] MEDS: LACTULOSE SYRUP 20 GM/30 ML UDC PO SCH ×2 (09:26→18:15)
[2019-04-20] MEDS ORDERED: ONDANSETRON HCL 4 MG ORAL DISINTEGRATING TAB PO PRN (10:15)
--- NOTE | 2019-04-20 11:14 | NUR ---
Spoke with Maxim Short, radiologist and Kyphoplasty will be done on 04/22/2019 at 1pm and patient will be NPO starting tomorrow, no blood thinners, will obtain consent.
--- NOTE | 2019-04-20 15:21 | NUR ---
Patient OOB with PT, ambulated about 60 feet and recommended home with home health.
--- NOTE | 2019-04-20 15:30 | NUR ---
HEMATOLOGY/ONCOLOGY CONSULTATION NOTE: REASON FOR CONSULTATION: Thrombocytopenia REQUESTING PHYSICIAN: Dr. Bassam Jackson CONSULTING PHYSICIAN: Dr. Nivia Segundo, Hematology/Oncology service HISTORY OF PRESENT ILLNESS: Resting comfortably, no new complaints. PHYSICAL EXAMINATION: VITAL SIGNS: Reviewed per EMR. GENERAL: No acute distress, confused SKIN: Warm, dry, intact HEENT: NC, AT. EOMI, no icterus NECK: Supple, nonmeningismus CARDIOVASCULAR: RRR PULMONARY: Decreased breath sounds bilaterally ABDOMEN: Soft, NTND, BS x 4 EXTREMITIES: No edema, no cyanosis NEUROLOGIC: Awake, alert, confused PSYCHIATRIC: Cooperative LABORATORY/RADIOLOGY DATA: Reviewed per electronic medical record ABD US 04/20/2019 Impression: 1. Cirrhotic changes of the liver again noted. 2. Status post cholecystectomy. 3. Trace ascites. ASSESSMENT AND PLAN: Ms. Mckeon is a pleasant 69-year-old female (my clinic patient) with primary biliary cirrhosis, chronic thrombocytopenia, rheumatoid arthritis on steroid/immunosuppressive therapy, end-stage renal disease on HD MWF, HTN, GERD, and osteoporosis who has been admitted to [facility] through the emergency department for excruciating back pain worsening for the past few months found to have L1 vertebral fracture on CXR. There is plan for kyphoplasty later this week once renal function and platelet counts improve. Hematology/Oncology has been consulted to assist with management. 1. Thrombocytopenia: Likely acute on chronic secondary to primary biliary cirrhosis. Does not appear to have splenic sequestration without splenomegaly on Abd US. S/p 1 jumbo platelet with improvement in platelet counts. HIV negativ e, acute hepatitis panel pending. Abdominal US consistent with cirrhosis with trace ascites noted. No signs of active bleeding, no coagulopathy noted. Monitor closely. 2. Anemia: Multifactorial. Secondary to anemia of chronic disease. No iron deficiency noted on labs. S/p 1 unit PRBC transfused with good response in hemoglobin. S/p Procrit with HD. No signs of active bleeding. Vitamin B12 elevated likely due to cirrhosis. Folate pending. Transfuse to keep hemoglobin > 7. Monitor closely. 3. ESRD: On HD MWF. Creatinine improving. Nephrology on board. 4. L1 vertebral fracture: Planning for kyphoplasty, possible ? 5. Hypercalcemia: On admission now resolved. PTH pending. Alk phos elevated, bone specific alk phos pending. Monitor. 6. AMS: Hepatic encephalopathy? On Xifaxan and Lactulose. Monitor liver enzymes. Managed per primary team. 7. Rheumatoid arthritis: On Kevzara and Prednisone at home. On prednisone. Hold Kevzara for now. 8. DVT/GI Proph: SCDs for now. On Protonix. Above plan discussed with Dr. Segundo. Thank you for the consult. I will be available. Please call with questions.
[2019-04-20] MEDS ORDERED: EPOETIN ALFA-EPBX 10,000 UNIT/ML VIAL SC ONE (15:45)
--- NOTE | 2019-04-20 15:49 | NUR ---
Patient seen by PA and orders to cancel Epogen since it was given this morning
--- NOTE | 2019-04-20 18:43 | NUR ---
Patient alert and responsive, appetite poor, patient tolerated 20% of each meal, repositioned per protocol, back pains, call light within reach, will monitor.
--- NOTE | 2019-04-20 19:00 | NUR ---
RECEIVED PATIENT IN BEDSIDE SHIFT REPORT. PATIENT RESTING IN BED AT THIS TIME, REPORTS PAIN TO BACK AND GENERALIZED STIFFNESS, WILL MEDICATE WITH PRN PAIN MEDS. NO S&S OF DISTRESS NOTED. PATIENT A&OX2-3. PATIENT AWARE SHE IS IN HOSPITAL BUT CONFUSED ABOUT SITUATION AND DATE. BED ALARM ACTIVE. BED LOCKED IN LOWEST POSITION, SIDE RAILS UPX2, CALL LIGHT IN REACH.
[2019-04-20] MEDS: HYDROMORPHONE 1MG/1ML INJ IV PRN (19:31)
--- NOTE | 2019-04-20 21:15 | NUR ---
STOOL SAMPLE COLLECTED AND SENT TO LAB.
[2019-04-20] MEDS: QUETIAPINE FUMARATE 25 MG TAB PO SCH (21:21)
[2019-04-21] VITALS (7 sets, daily range): BP systolic 100–129; BP diastolic 52–75
--- NOTE | 2019-04-21 00:50 | NUR ---
HOGUE IN TO SEE PATIENT AT THIS TIME. NO NEW ORDERS RECEIVED.
[2019-04-21 05:36] LABS: EOSINOPHILS % 0.4 % (0.0-6.0); HEMATOCRIT 26.3 % (34.2-44.1); HEMOGLOBIN 8.3 g/dL (12.0-16.0); LYMPHOCYTES # (AUTO) 0.8 (1.0-3.2); LYMPHOCYTES % 16.3 % (18.0-39.1); MEAN CORPUSCULAR HEMOGLOBIN 30.2 pg (28-32); MEAN CORPUSCULAR HGB CONC 31.6 g/dL (31-35); MEAN CORPUSCULAR VOLUME 95.6 fL (81-99); MONOCYTES # (AUTO) 0.3 (0.2-0.8); MONOCYTES % 6.7 % (4.4-11.3); NEUTROPHILS # (AUTO) 3.8 (2.1-6.9); NEUTROPHILS % 75.6 % (38.7-80.0); RED BLOOD COUNT 2.75 x10e6/uL (3.6-5.1); RED CELL DISTRIBUTION WIDTH 22.3 % (11.7-14.4)
[2019-04-21 05:48] LABS: PLATELET COUNT 41 x10e3/uL (140-360)
--- NOTE | 2019-04-21 06:26 | NUR ---
SPOKE WITH NIXON SAAVEDRA FOR DR FERRERA, CONCERNING CRITICAL LAB VALUE, PLATELETS:41. NO TRANSFUSION ORDERS GIVEN D/T KYPHOPLASTY ON 04/22. RECHECK CBC IN AM. NO OTHER ORDERS RECEIVED.
--- NOTE | 2019-04-21 07:36 | NUR ---
HEMATOLOGY/ONCOLOGY CONSULTATION NOTE: REASON FOR CONSULTATION: Thrombocytopenia REQUESTING PHYSICIAN: Dr. Bassam Jackson CONSULTING PHYSICIAN: Dr. Nivia Segundo, Hematology/Oncology service HISTORY OF PRESENT ILLNESS: Resting comfortably, she does not want patch to lower back, she is more alert today, less confused. PHYSICAL EXAMINATION: VITAL SIGNS: Reviewed per EMR. GENERAL: No acute distress, confused SKIN: Warm, dry, intact HEENT: NC, AT. EOMI, no icterus NECK: Supple, nonmeningismus CARDIOVASCULAR: RRR PULMONARY: Decreased breath sounds bilaterally ABDOMEN: Soft, NTND, BS x 4 EXTREMITIES: No edema, no cyanosis NEUROLOGIC: Awake, alert, confused PSYCHIATRIC: Cooperative LABORATORY/RADIOLOGY DATA: Reviewed per electronic medical record ASSESSMENT AND PLAN: Ms. Mckeon is a pleasant 69-year-old female (my clinic patient) with primary biliary cirrhosis, chronic thrombocytopenia, rheumatoid arthritis on steroid/immunosuppressive therapy, end-stage renal disease on HD MWF, HTN, GERD, and osteoporosis who has been admitted to [facility] through the emergency department for excruciating back pain worsening for the past few months found to have L1 vertebral fracture on CXR. There is plan for kyphoplasty later this week once renal function and platelet counts improve. Hematology/Oncology has been consulted to assist with management. 1. Thrombocytopenia: Likely acute on chronic secondary to primary biliary cirrhosis. Does not appear to have splenic sequestration without splenomegaly on Abd US. S/p 1 jumbo platelet with improvement in platelet counts, now trending down again. HIV negative, acute hepatitis panel negative. Abdominal US consistent with cirrhosis with trace ascites noted. Less likely microangiopathic however awaiting haptoglobin results for #2 to rule out hemolytic component due to elevated retic counts. No signs of active bleeding, no coagulopathy noted. Monitor closely. 2. Anemia: Multifactorial. Secondary to anemia of chronic disease. No iron deficiency noted on labs, actually elevated %sat with recent hereditary hemochromatosis workup negative. Awaiting haptoglobin results as above and peripheral smear to rule out hemolysis. S/p 1 unit PRBC transfused with good res ponse in hemoglobin. now trending down. Continue Procrit MWF. No signs of active bleeding. Vitamin B12 elevated likely due to cirrhosis. Folate pending. FOBT positive. Transfuse to keep hemoglobin > 7. Monitor closely. 3. ESRD: On HD MWF. Creatinine improving. Nephrology on board. 4. L1 vertebral fracture: Planning for kyphoplasty, planned for , will transfuse PRBC and/or Platelets preoperatively if needed. 5. Hypercalcemia: On admission now resolved. PTH pending. Alk phos elevated, bone specific alk phos pending. Monitor. 6. AMS: Likely secondary to hepatic encephalopathy. On Xifaxan and Lactulose. Monitor liver enzymes. Managed per primary team. 7. Rheumatoid arthritis: On Kevzara and Prednisone at home. On prednisone. Hold Kevzara for now. 8. DVT/GI Proph: SCDs for now. On Protonix. Above plan discussed with Dr. Segundo. Thank you for the consult. I will be available. Please call with questions.
[2019-04-21 08:28] LABS: BASOPHILS % 0.2 % (0.0-1.0); EOSINOPHILS % 0.5 % (0.0-6.0); HEMATOCRIT 27.8 % (34.2-44.1); HEMOGLOBIN 9.2 g/dL (12.0-16.0); LYMPHOCYTES # (AUTO) 0.9 (1.0-3.2); LYMPHOCYTES % 14.7 % (18.0-39.1); MEAN CORPUSCULAR HEMOGLOBIN 30.7 pg (28-32); MEAN CORPUSCULAR HGB CONC 33.1 g/dL (31-35); MEAN CORPUSCULAR VOLUME 92.7 fL (81-99); MONOCYTES # (AUTO) 0.5 (0.2-0.8); MONOCYTES % 7.1 % (4.4-11.3); NEUTROPHILS # (AUTO) 4.9 (2.1-6.9); NEUTROPHILS % 76.4 % (38.7-80.0); RED CELL DISTRIBUTION WIDTH 22.2 % (11.7-14.4)
[2019-04-21] MEDS: MIDODRINE 2.5 MG TAB PO SCH ×3 (09:00→21:00)
[2019-04-21] MEDS: OYST-CAL-D 500MG TABLET PO SCH (09:00)
[2019-04-21] MEDS: PREDNISONE 10 MG TAB PO SCH (09:00)
[2019-04-21] MEDS: PANTOPRAZOLE SOD 40 MG TABEC PO SCH (09:00)
[2019-04-21] MEDS: LACTULOSE SYRUP 20 GM/30 ML UDC PO SCH ×2 (09:00→16:57)
[2019-04-21] MEDS: RIFAXIMIN 550 MG TABLET PO SCH ×2 (09:00→16:57)
[2019-04-21] MEDS: DOCUSATE SODIUM 100 MG CAP PO SCH ×2 (09:00→16:57)
[2019-04-21] MEDS: LIDOCAINE 4% PATCH TP SCH (09:00)
[2019-04-21] MEDS ORDERED: EPOETIN ALFA-EPBX 10,000 UNIT/ML VIAL SC ONE (09:00)
[2019-04-21] MEDS: MULTIVITAMINS/MINERALS TAB PO SCH (09:00)
[2019-04-21 09:28] LABS: PLATELET COUNT 48 x10e3/uL (140-360)
[2019-04-21 10:43] LABS: ANISOCYTOSIS SLIGHT; PLATELET MORPHOLOGY COMMENT NORMAL; POIKILOCYTOSIS SLIGHT; RBC MORPHOLOGY COMMENT NORMAL
[2019-04-21 10:44] LABS: PLATELET ESTIMATE MODERATELY DECREASED
[2019-04-21 10:58] LABS: LYMPHOCYTES % (MANUAL) 10 % (19-48); MONOCYTES % (MANUAL) 4 % (3.4-9.0); NEUTROPHILS % (MANUAL) 86 % (40-74)
[2019-04-21 10:59] LABS: ANISOCYTOSIS SLIGHT; PLATELET ESTIMATE MARKEDLY DECREASED; RBC MORPHOLOGY COMMENT NORMAL
[2019-04-21 11:00] LABS: PLATELET MORPHOLOGY COMMENT NORMAL; POLYCHROMASIA FEW
--- NOTE | 2019-04-21 11:17 | NUR ---
Patient alert and responsive, has been refusing medications after several attempts to give. However patient is getting hemodialysis at this time, will monitor.
--- NOTE | 2019-04-21 13:00 | NUR ---
Patient completed hemodialysis and 1Liter extracted. No adverse events noted or reported
[2019-04-21] MEDS: HYDROMORPHONE 1MG/1ML INJ IV PRN (13:10)
--- NOTE | 2019-04-21 16:10 | NUR ---
Patient's daughter Jeannine Huston signed consent for procedure given patient is confused.
--- NOTE | 2019-04-21 16:58 | NUR ---
Patient again refused all her evening meds, daughter assisted with offering meds but patient still refused
--- NOTE | 2019-04-21 19:15 | NUR ---
patient received awake, alert, lying quietly in bed. no c/o pain noted. ivf continue to infuse without difficulty. pm assessment complete. family noted at the bedside. plan of care reviewed with patient/family. patient will be npo past ia tonight for kyphoplasty tomorrow. patient/family verbalize understanding of this. Addendum: 04/21/19 at 1944 by Linda Serna RN error---no ivf infusing.
[2019-04-21] MEDS: QUETIAPINE FUMARATE 25 MG TAB PO SCH (21:00)
[2019-04-22] VITALS (8 sets, daily range): BP systolic 103–147; BP diastolic 55–70
--- NOTE | 2019-04-22 05:31 | NUR ---
patient medicated with dilaudid 0.5mg ivp for c/o lower back pain 09/02 at this time per patients request.
[2019-04-22] MEDS: HYDROMORPHONE 1MG/1ML INJ IV PRN (05:34)
[2019-04-22 05:58] LABS: BASOPHILS % 0.1 % (0.0-1.0); EOSINOPHILS % 0.6 % (0.0-6.0); HEMATOCRIT 30.6 % (34.2-44.1); HEMOGLOBIN 9.7 g/dL (12.0-16.0); LYMPHOCYTES # (AUTO) 1.1 (1.0-3.2); LYMPHOCYTES % 15.9 % (18.0-39.1); MEAN CORPUSCULAR HEMOGLOBIN 30.1 pg (28-32); MEAN CORPUSCULAR HGB CONC 31.7 g/dL (31-35); MONOCYTES # (AUTO) 0.5 (0.2-0.8); MONOCYTES % 6.8 % (4.4-11.3); NEUTROPHILS # (AUTO) 5.2 (2.1-6.9); NEUTROPHILS % 75.3 % (38.7-80.0); RED BLOOD COUNT 3.22 x10e6/uL (3.6-5.1); RED CELL DISTRIBUTION WIDTH 22.5 % (11.7-14.4)
[2019-04-22 06:20] LABS: ALBUMIN 2.2 g/dL (3.5-5.0); ALBUMIN/GLOBULIN RATIO 0.8 (0.8-2.0); ANION GAP 13.8 mmol/L (8-16); CALCIUM 9.5 mg/dL (8.4-10.2); CREATININE, SERUM 3.45 mg/dL (0.57-1.11); POTASSIUM 3.8 mmol/L (3.5-5.1)
[2019-04-22 06:35] LABS: PLATELET COUNT 48 x10e3/uL (140-360)
--- NOTE | 2019-04-22 07:00 | NUR ---
the pt. is maintained n p o for kyphoplasty.
--- NOTE | 2019-04-22 07:39 | NUR ---
HEMATOLOGY/ONCOLOGY CONSULTATION NOTE: REASON FOR CONSULTATION: Thrombocytopenia REQUESTING PHYSICIAN: Dr. Bassam Jackson CONSULTING PHYSICIAN: Dr. Nivia Segundo, Hematology/Oncology service HISTORY OF PRESENT ILLNESS: Resting comfortably, awaiting kyphoplasty today. PHYSICAL EXAMINATION: VITAL SIGNS: Reviewed per EMR. GENERAL: No acute distress, confused SKIN: Warm, dry, intact HEENT: NC, AT. EOMI, no icterus NECK: Supple, nonmeningismus CARDIOVASCULAR: RRR PULMONARY: Decreased breath sounds bilaterally ABDOMEN: Soft, NTND, BS x 4 EXTREMITIES: No edema, no cyanosis NEUROLOGIC: Awake, alert, confused PSYCHIATRIC: Cooperative LABORATORY/RADIOLOGY DATA: Reviewed per electronic medical record ASSESSMENT AND PLAN: Ms. Mckeon is a pleasant 69-year-old female (my clinic patient) with primary biliary cirrhosis, chronic thrombocytopenia, rheumatoid arthritis on steroid/immunosuppressive therapy, end-stage renal disease on HD MWF, HTN, GERD, and osteoporosis who has been admitted to [facility] through the emergency department for excruciating back pain worsening for the past few months found to have L1 vertebral fracture on CXR. There is plan for kyphoplasty later this week once renal function and platelet counts improve. Hematology/Oncology has been consulted to assist with management. 1. Thrombocytopenia: Likely acute on chronic secondary to primary biliary cirrhosis. Does not appear to have splenic sequestration without splenomegaly on Abd US. S/p 1 jumbo platelet with improvement in platelet counts, now stable in 40,000 range. HIV negative, acute hepatitis panel negative. Abdominal US consistent with cirrhosis with trace ascites noted. Less likely microangiopathy associated with renal function and hemolysis. No coagulopathy identified, however will repeat PT/INR counts today. 2. Anemia: Multifactorial. Appears secondary to anemia of chronic disease. No iron deficiency noted on labs, actually elevated %sat with recent hereditary hemochromatosis workup negative. Haptoglobin < 10 concerning for hemolysis with rare schistocytes on smear, this is more likely due to underlying liver disease however will give Dexa 10mg x 1. S/p 1 unit PRBC transfused. Continue Procrit MWF. No signs of active bleeding. Vitamin B12 elevated likely due to cirrhosis. Folate pending. FOBT positive. Transfuse to keep hemoglobin > 7. Monitor closely. 3. ESRD: On HD MWF. Creatinine improving. Nephrology on board. 4. L1 vertebral fracture: Planning for kyphoplasty, planned for today, will transfuse 1 jumbo platelet preoperatively. 5. Hypercalcemia: On admission now resolved. PTH WNL 47. Alk phos elevated, bone specific alk phos pending. Monitor. 6. AMS: Likely secondary to hepatic encephalopathy. On Xifaxan and Lactulose. Monitor liver enzymes. Managed per primary team. 7. Rheumatoid arthritis: On Kevzara and Prednisone at home. On prednisone. Hold Kevzara for now. 8. DVT/GI Proph: SCDs for now. On Protonix. Above plan discussed with Dr. Segundo. Thank you for the consult. I will be available. Please call with questions.
[2019-04-22 08:01] LABS: ANISOCYTOSIS MODERATE; HYPOCHROMASIA SLIGHT; PLATELET ESTIMATE MODERATELY DECREASED; POLYCHROMASIA FEW; SCHISTOCYTES RARE; TEAR DROP CELLS FEW
[2019-04-22 08:02] LABS: PLATELET MORPHOLOGY COMMENT NORMAL
[2019-04-22 08:03] LABS: RBC MORPHOLOGY COMMENT NORMAL
[2019-04-22 08:18] LABS: INR 0.97; PROTHROMBIN TIME 13.5 seconds (11.9-14.5)
[2019-04-22] MEDS ORDERED: DEXAMETHASONE SOD PHOS INJ 4 MG/ML VIAL IV ONE (08:55)
[2019-04-22] MEDS ORDERED: LIDOCAINE HCL 1% LOCAL INJ 20 ML VIAL ONE (09:07)
[2019-04-22] MEDS: LACTULOSE SYRUP 20 GM/30 ML UDC PO SCH ×2 (09:21→16:27)
[2019-04-22] MEDS: DOCUSATE SODIUM 100 MG CAP PO SCH ×2 (09:21→16:27)
[2019-04-22] MEDS: PREDNISONE 10 MG TAB PO SCH (09:21)
[2019-04-22] MEDS: LIDOCAINE 4% PATCH TP SCH (09:21)
[2019-04-22] MEDS: MULTIVITAMINS/MINERALS TAB PO SCH (09:21)
[2019-04-22] MEDS: PANTOPRAZOLE SOD 40 MG TABEC PO SCH (09:21)
[2019-04-22] MEDS: MIDODRINE 2.5 MG TAB PO SCH ×3 (09:21→20:42)
[2019-04-22] MEDS: RIFAXIMIN 550 MG TABLET PO SCH ×2 (09:21→16:27)
[2019-04-22] MEDS: OYST-CAL-D 500MG TABLET PO SCH (09:21)
[2019-04-22] MEDS ORDERED: HYDRALAZINE HCL 20 MG/ML VIAL IV PRN (10:45)
[2019-04-22] MEDS ORDERED: ACETAMINOPHEN 325 MG TAB PO PRN (10:45)
[2019-04-22] MEDS ORDERED: SODIUM CHLORIDE 0.9% 250ML 250 ML ONE (12:52)
[2019-04-22] MEDS ORDERED: ROCURONIUM BROMIDE 10 MG/ML 5ML VIAL ONE (14:47)
[2019-04-22] MEDS ORDERED: SEVOFLURANE INHAL SOLN 250 ML PEN BTL ONE (14:47)
[2019-04-22] MEDS ORDERED: LIDOCAINE HCL 2% LOCAL INJ 5 ML SDV VIAL INJ ONE (14:47)
[2019-04-22] MEDS ORDERED: PROPOFOL IV EMULSION 10 MG/ML 20 ML VIAL ONE (14:47)
[2019-04-22] MEDS ORDERED: SUGAMMADEX SODIUM 200 MG/2 ML VIAL IV ONE (14:55)
--- NOTE | 2019-04-22 16:27 | NUR ---
Returned to the room sp kyphoplasty with 2 areas covered with dermabond and tegaderm. No bleeding noted and the pt. denied pain or discomfort.
--- NOTE | 2019-04-22 19:05 | NUR ---
patient received lying quietly in bed. no c/o pain noted. dressing to lower back c,d,i. pm assessment complete. side rails up x 3 and bed alarm remains on for safety.
[2019-04-22] MEDS: QUETIAPINE FUMARATE 25 MG TAB PO SCH (20:42)
[2019-04-22] MEDS ORDERED: MELATONIN 5 MG TABLET PO PRN (21:00)
--- NOTE | 2019-04-23 | NUR ---
patient appears to be resting quietly. no c/o pain noted at this time.
[2019-04-23 00:44] VITALS: BP 126/60
[2019-04-23 04:48] VITALS: BP 128/66
[2019-04-23 08:37] VITALS: BP 108/55
[2019-04-23] MEDS: LIDOCAINE 4% PATCH TP SCH (09:00)
[2019-04-23] MEDS: OYST-CAL-D 500MG TABLET PO SCH (09:00)
[2019-04-23] MEDS: PREDNISONE 10 MG TAB PO SCH (09:00)
[2019-04-23] MEDS ORDERED: LACTULOSE SYRUP 20 GM/30 ML UDC PO SCH (09:00)
[2019-04-23] MEDS: PANTOPRAZOLE SOD 40 MG TABEC PO SCH (09:00)
[2019-04-23] MEDS ORDERED: RIFAXIMIN 550 MG TABLET PO SCH (09:00)
[2019-04-23] MEDS ORDERED: DOCUSATE SODIUM 100 MG CAP PO SCH (09:00)
[2019-04-23] MEDS: MULTIVITAMINS/MINERALS TAB PO SCH (09:00)
[2019-04-23] MEDS: MIDODRINE 2.5 MG TAB PO SCH ×2 (09:00→15:00)
[2019-04-23 09:16] LABS: BASOPHILS % 0.2 % (0.0-1.0); EOSINOPHILS % 0.2 % (0.0-6.0); HEMATOCRIT 27.1 % (34.2-44.1); LYMPHOCYTES # (AUTO) 0.5 (1.0-3.2); LYMPHOCYTES % 8.9 % (18.0-39.1); MEAN CORPUSCULAR HEMOGLOBIN 30.9 pg (28-32); MEAN CORPUSCULAR HGB CONC 33.2 g/dL (31-35); MEAN CORPUSCULAR VOLUME 93.1 fL (81-99); MONOCYTES # (AUTO) 0.3 (0.2-0.8); MONOCYTES % 5.5 % (4.4-11.3); NEUTROPHILS # (AUTO) 5.1 (2.1-6.9); NEUTROPHILS % 84.5 % (38.7-80.0); PLATELET COUNT 96 x10e3/uL (140-360); RED BLOOD COUNT 2.91 x10e6/uL (3.6-5.1); RED CELL DISTRIBUTION WIDTH 22.1 % (11.7-14.4)
--- NOTE | 2019-04-23 09:22 | Diagnostic Imaging Report ---
PROCEDURE: Vertebral augmentation with cavity creation Procedural Personnel Attending physician(s): Caleb Dunn MD Fellow physician(s): None Resident physician(s): None Advanced practice provider(s): None Pre-procedure diagnosis: L1 compression fracture Post-procedure diagnosis: Same Indication: Osteoporotic compression fracture Additional clinical history: None Complications: No immediate complications. IMPRESSION: Vertebral augmentation with cavity creation of L1 vertebral body with Elin SpineJack 5mm implants and VertaPlex cement. A bone biopsy was not performed. Plan: Continue care per primary team. PROCEDURE SUMMARY: - Fluoroscopic guided vertebral augmentation with cavity creation - Additional procedure(s): None PROCEDURE DETAILS: Pre-procedure Consent: Informed consent for the procedure including risks, benefits and alternatives was obtained and time-out was performed prior to the procedure. Preparation: The site was prepared and draped using maximal sterile barrier technique including cutaneous antisepsis. Anesthesia/sedation Level of anesthesia/sedation: General anesthesia Anesthesia/sedation administered by: Anesthesiology Vertebral augmentation with cavity creation Target fracture level(s): L1 Pedicle access: Bipedicular Access trocar(s) gauge: 11 gauge Cavity creation device utilized: Elin SpineJack Cement type: [place] Vertaplex. Director Loss Prevention: Elin/Carefusion Clinically significant cement leak occurrence: No Closure The devices were removed and hemostasis was achieved with manual compression. A sterile bandage was applied. Radiation Dose Fluoroscopy time (minutes): 6.8 Reference air kerma (mGy): 110 Additional Details Additional description of procedure: None Equipment details: None Specimens removed: None Estimated blood loss (mL): Less than 10 Standardized report: [id number] Attestation Signer name: Caleb Dunn MD I attest that I was present for the entire procedure. I reviewed the stored images and agree with the report as written. Supplemental information: Relevant imaging review (modality confirming fracture): MRI Date of study: 04/05/2019 Baseline numeric pain rating scale: 10 On-going, routine back pain prior to VCF diagnosis: No Patient currently using steroids: No Failure of non-operative treatment for routine back pain prior to VCF diagnosis: Yes Comprehensive pain evaluation performed prior to procedure: Yes Non-operative treatment prior to procedure: Yes - local analgesics Non-operative treatment timeframe: Between 1-4 months Rationale for no conservative treatment measures taken, if applicable: N/A Fracture history: Fall Neurologically intact at levels relevant to treatment: Yes Osteoporosis: Primary Osteoporosis treatment: No Medications Dexa scan score: N/A Is the fracture greater than or equal to 4 months old without edema? No Does the patient have foraminal stenosis? No Does the patient have any other degenerative spine diseases? No Does the patient have facet anthropathy? No Does the patient have other significant coexistent consistent spiny bone generators? No Did the patient have any other concurrent procedures? No Does the patient have an unstable fracture in the same/adjacent spinal region? No Does the patient have painful metastases? No Did the patient receive the procedure as prophylactic treatment for osteoporosis? No Signed by: Caleb Dunn MD on 04/23/2019 9:19 AM
[2019-04-23 09:36] VITALS: BP 108/55
[2019-04-23 09:39] LABS: ANION GAP 15.1 mmol/L (8-16); CREATININE, SERUM 5.31 mg/dL (0.57-1.11); POTASSIUM 4.1 mmol/L (3.5-5.1)
--- NOTE | 2019-04-23 09:41 | NUR ---
HEMATOLOGY/ONCOLOGY CONSULTATION NOTE: REASON FOR CONSULTATION: Thrombocytopenia REQUESTING PHYSICIAN: Dr. Bassam Jackson CONSULTING PHYSICIAN: Dr. Nivia Segundo, Hematology/Oncology service HISTORY OF PRESENT ILLNESS: Resting comfortably, s/p kyphoplasty. Some incision site pain, otherwise appears to be doing well. PHYSICAL EXAMINATION: VITAL SIGNS: Reviewed per EMR. GENERAL: No acute distress, confused SKIN: Warm, dry, intact HEENT: NC, AT. EOMI, no icterus NECK: Supple, nonmeningismus CARDIOVASCULAR: RRR PULMONARY: Decreased breath sounds bilaterally ABDOMEN: Soft, NTND, BS x 4 EXTREMITIES: No edema, no cyanosis NEUROLOGIC: Awake, alert, confused PSYCHIATRIC: Cooperative LABORATORY/RADIOLOGY DATA: Reviewed per electronic medical record ASSESSMENT AND PLAN: Ms. Mckeon is a pleasant 69-year-old female (my clinic patient) with primary biliary cirrhosis, chronic thrombocytopenia, rheumatoid arthritis on steroid/immunosuppressive therapy, end-stage renal disease on HD MWF, HTN, GERD, and osteoporosis who has been admitted to [facility] through the emergency department for excruciating back pain worsening for the past few months found to have L1 vertebral fracture on CXR. There is plan for kyphoplasty later this week once renal function and platelet counts improve. Hematology/Oncology has been consulted to assist with management. 1. Thrombocytopenia: Likely acute on chronic secondary to primary biliary cirrhosis. Does not appear to have splenic sequestration without splenomegaly on Abd US. S/p 2 jumbo platelet with improvement in platelet counts. HIV negative, acute hepatitis panel negative. Abdominal US consistent with cirrhosis with trace ascites noted. Less likely microangiopathy associated with renal function and hemolysis. No coagulopathy identified. Monitor for now. 2. Anemia: Multifactorial. Appears secondary to anemia of chronic disease. No iron deficiency noted on labs, actually elevated %sat with recent hereditary hemochromatosis workup negative. Haptoglobin < 10 concerning for hemolysis with rare schistocytes on smear, this is more likely due to underlying liver disease. S/p Dexa 10mg x 1. S/p 1 unit PRBC transfused. Continue Procrit MWF. No signs of active bleeding. Vitamin B12 elevated likely due to cirrhosis. Folate normal. FOBT positive. Monitor closely. 3. ESRD: On HD MWF. Creatinine slightly trending up today. Nephrology on board. 4. L1 vertebral fracture: S/p kyphoplasty. Monitor. 5. Hypercalcemia: On admission now resolved. PTH WNL 47. Alk phos elevated, bone specific alk phos pending. Monitor. 6. AMS: Likely secondary to hepatic encephalopathy. On Xifaxan and Lactulose. Monitor liver enzymes. Managed per primary team. 7. Rheumatoid arthritis: On Kevzara and Prednisone at home. On prednisone. Hold Kevzara for now. 8. DVT/GI Proph: SCDs for now, can consider starting Heparin 5000u sq q8h for DVT prophylaxis if platelets remains improved and stable. On Protonix. 9. Dispo: Patient cleared for discharge from HemOnc standpoint. Follow up in clinic in 1-2 weeks. Above plan discussed with Dr. Segundo. Thank you for the consult. I will be available. Please call with questions.
--- NOTE | 2019-04-23 09:42 | NUR ---
DIALYSIS IN PROGRESS Addendum: 04/23/19 at 1130 by Marcella Abdi RN DISREGARDGABRIELE PT
[2019-04-23 10:00] LABS: ANISOCYTOSIS MODERATE; RBC MORPHOLOGY COMMENT ABNORMAL
--- NOTE | 2019-04-23 12:06 | NUR ---
PT OOB WITH PHYSICAL THERAPIST, HR ELEVATED, PHYSICAL THERAPIST ATTEMPTED TO LET PT SIT IN CHAIR, PT REFUSING AT THIS TIME, CALL LIGHT WITHIN REACH, HR LOWER AFTER RETURNING TO BED, AWAITING DIALYSIS
[2019-04-23 12:48] VITALS: BP 122/68
--- NOTE | 2019-04-23 14:32 | NUR ---
DIALYSIS IN PROGRESS
--- NOTE | 2019-04-23 16:04 | NUR ---
FAXED CLINICALS FOR RESUMPTION OF CARE WITH [facility] [phone], ISSUED A WALKER PER ORDER OBTAINED ALL SIGNATURES AND WILL FILE IN PACU FOR PROCESSING. EXPLAINED TO THE PT THE MEDICARE RULE THAT THEY WILL NOT APPROVE BOTH THE BED SIDE COMMODE AND THE WALKER BECAUSE THEY SEE IT IF YOU HAVE ONE DONT NEED THE OTHER. SHE STATES CHOOSES THE WALKER. LEFT IN ROOM.
[2019-04-23 17:07] VITALS: BP 115/72
--- NOTE | 2019-04-23 18:00 | NUR ---
SPOKE WITH DAUGHTER VAIBHAV , MADE AWARE THAT PT IS DISCHARGE, STATES WILL BE THERE IN ABOUT IN HOUR
--- NOTE | 2019-04-23 18:45 | NUR ---
WITH STANDBY ASSIST, PT STOOD AND GOT DRESSED WITH ASSISTANCE FROM DAUGHTER
--- NOTE | 2019-04-23 19:43 | NUR ---
SPOKE WITH JOHNY, TRANSIT WORKER WITH MD [employer], MADE AWARE OF PT ELEVATED HR UPON GETTING READY FOR DISCHARGE, ASYMPTOMATIC , BP 113/69, PT REQUESTING TO LEAVE "NOW", ORDERS NOTED
[2019-04-23] MEDS ORDERED: METOPROLOL TARTRATE INJ 1 MG/ML VIAL IV ONE (19:45)
--- NOTE | 2019-04-23 20:08 | NUR ---
BP 132/77 HR 132. MEDICATED WITH IV METOPROLOL ORDERED, RECHECK BP 117/66 HR 104. PATIENT DC TO HOME, CONDITION STABLE, IV REMOVED WITH TIP INTACT. PRESSURE DRESSING APPLIED. BELONGINGS GATHERED BY DAUGHTER.
--- NOTE | 2019-04-24 03:54 | Discharge Summary ---
ADMISSION DIAGNOSES: Bijhv-if-sjqgmpj lower back pain with L1 compression fracture, end-stage renal disease, wxdlj-zw-xyiayhl anemia, liver cirrhosis, rheumatoid arthritis, thrombocytopenia, secondary to cirrhosis, and gastroesophageal reflux disease. DISCHARGE DIAGNOSES: Kwqed-bh-ikdsttk lower back pain with L1 compression fracture, end-stage renal disease, ipldt-wr-docvzez anemia, liver cirrhosis, rheumatoid arthritis, thrombocytopenia, secondary to cirrhosis, and gastroesophageal reflux disease, status post L1 kyphoplasty plus acute blood loss anemia secondary to GI bleed mixed with wjrsz-sr-qoorsbi anemia due to cirrhosis. MEDICAL HISTORY: Hepatorenal syndrome, cirrhosis, GERD, hyperlipidemia, RA, dysphagia due to esophageal strictures, dialysis due to CKD, and anemia of chronic disease/GI bleed. SURGICAL HISTORY: , cholecystectomy, tonsillectomy, dilation of the esophageal strictures, and tonsillectomy. FAMILY HISTORY: The patient's sister had cancer and a stroke. The patient's nephew had diabetes. SOCIAL HISTORY: Noncontributory. HOSPITAL COURSE: A 69-year-old female admits with complaints of sharp lower back pain that radiates down both legs, found to have an L1 compression fracture and was planning outpatient kyphoplasty, but was unable to weight until that date. On admission, IR was consulted. Chest x-ray showed left basilar opacity likely due to atelectasis or effusion. Ultrasound of the abdomen showed cirrhotic changes of the liver, trace ascites. The patient's hemoglobin dropped to 6.5, so stool for blood was collected, which was positive for blood. She received 2 units of platelets and 1 unit of PRBCs. HIV was negative and hepatitis C panel was negative. The patient was taken to the IR for L1 kyphoplasty on 04/22/2019. The patient tolerated the procedure well. The patient was issued a walker and home physical therapy prior to discharge per Physical Therapy recommendation. She will discharge home with family. Vital signs are stable. The patient is afebrile. She had her session of dialysis prior to discharge. She will follow up with primary care in 1 to 2 weeks. The patient understands instructions and agrees to plan. Dictated by Ann Marie Cagle NP Bassam Wooten MD ANJEL/MODL /[id number]
== END 2019-04-23 20:08 | disposition home or self-care (01) | DRG 515 ==
LOC: ER 16:30 → ERHOLD 19:15 → MED/SURG 21:37
PROVIDERS: ADMIT Internal Medicine; ATTEND Internal Medicine
PROC: 30243N1 Transfusion of Nonautologous Red Blood Cells into Central Vein, Percutaneous Approach (ICD-10-PCS; 2019-04-17)
PROC: 5A1D70Z Performance of Urinary Filtration, Intermittent, Less than 6 Hours Per Day (ICD-10-PCS; principal; 2019-04-19)
PROC: 0QU00JZ Supplement Lumbar Vertebra with Synthetic Substitute, Open Approach (ICD-10-PCS; 2019-04-22)
DX: M48.56XA Collapsed vertebra, not elsewhere classified, lumbar region, initial encounter for fracture (principal); N18.6 End stage renal disease; I12.0 Hypertensive chronic kidney disease with stage 5 chronic kidney disease or end stage renal disease; E72.20 Disorder of urea cycle metabolism, unspecified; D62 Acute posthemorrhagic anemia; D63.1 Anemia in chronic kidney disease; Z99.2 Dependence on renal dialysis; M06.9 Rheumatoid arthritis, unspecified; E78.5 Hyperlipidemia, unspecified; K74.3 Primary biliary cirrhosis; K21.9 Gastro-esophageal reflux disease without esophagitis; Z96.659 Presence of unspecified artificial knee joint; D69.6 Thrombocytopenia, unspecified; M19.90 Unspecified osteoarthritis, unspecified site; K72.90 Hepatic failure, unspecified without coma; R26.9 Unspecified abnormalities of gait and mobility
CPT/HCPCS: 22514; 36415; 71045; 74470; 76700; 80048; 80053; 82140; 82270; 82550; 82553; 82607; 82728; 82746; 83010; 83540; 83615; 83735; 83970; 84080; 84466; 84484; 85025; 85045; 85610; 85730; 86704; 86705; 86706; 86850; 86900; 86920; 86945; 87340; 87390; 90962; 93005; 97139; 99284; G0433; G0435; J1100; J1170; J1644; J2001; J2270; J2405; J7030; J7050; J7512; P9016; P9034

== ENCOUNTER 2019-05-01 14:54 | Inpatient (IN) | payer MEDICARE ==
[~2019-05-01] VITALS: Ht 160 cm; Wt 59.9 kg
--- NOTE | 2019-05-01 16:02 | NUR ---
curb and gutter laborer in room at this time.
[2019-05-01 16:23] LABS: BASOPHILS # (AUTO) 0.1 (0.0-0.1); BASOPHILS % 0.7 % (0.0-1.0); EOSINOPHILS # (AUTO) 0.1 (0.0-0.4); EOSINOPHILS % 1.1 % (0.0-6.0); HEMATOCRIT 37.1 % (34.2-44.1); HEMOGLOBIN 12.1 g/dL (12.0-16.0); LYMPHOCYTES # (AUTO) 1.9 (1.0-3.2); LYMPHOCYTES % 18.4 % (18.0-39.1); MEAN CORPUSCULAR HEMOGLOBIN 30.3 pg (28-32); MEAN CORPUSCULAR HGB CONC 32.6 g/dL (31-35); MEAN CORPUSCULAR VOLUME 92.8 fL (81-99); MONOCYTES # (AUTO) 0.8 (0.2-0.8); MONOCYTES % 8.1 % (4.4-11.3); NEUTROPHILS # (AUTO) 7.2 (2.1-6.9); NEUTROPHILS % 70.6 % (38.7-80.0); PLATELET COUNT 51 x10e3/uL (140-360); RED CELL DISTRIBUTION WIDTH 22.4 % (11.7-14.4)
[2019-05-01 16:41] LABS: ALBUMIN 2.5 g/dL (3.5-5.0); ALBUMIN/GLOBULIN RATIO 0.6 (0.8-2.0); ANION GAP 22.2 mmol/L (8-16); CALCIUM 10.6 mg/dL (8.4-10.2); CREATININE, SERUM 8.79 mg/dL (0.57-1.11); POTASSIUM 5.2 mmol/L (3.5-5.1)
[2019-05-01 16:49] LABS: CREATINE KINASE MB 4.4 ng/mL (0-5.0)
[2019-05-01] MEDS ORDERED: SOD POLYSTYRENE SULFONATE SUSP 15 GM/60 ML BTL PO NR (17:15)
--- NOTE | 2019-05-01 17:51 | Diagnostic Imaging Report ---
EXAMINATION: CHEST SINGLE (PORTABLE) INDICATION: Weakness. COMPARISON: Chest radiograph 04/17/2019. FINDINGS: TUBES and LINES: Right IJ tunneled hemodialysis catheter terminates near the cavoatrial junction. LUNGS: Lungs are well inflated. Central vascular congestion with mild interstitial opacities. Patchy left retrocardiac opacity. PLEURA: Small left pleural effusion. No evidence of pneumothorax. HEART AND MEDIASTINUM: The cardiomediastinal silhouette is unremarkable. BONES AND SOFT TISSUES: No acute osseous abnormality. Partially seen L1 vertebral augmentation. UPPER ABDOMEN: No free air under the diaphragm. IMPRESSION: Mild pulmonary interstitial edema and small left pleural effusion with patchy left retrocardiac opacity, likely atelectasis. Infection is possible in the appropriate clinical setting. Signed by: Dr. Catherine Solis MD on 05/01/2019 5:49 PM
--- NOTE | 2019-05-01 22:30 | NUR ---
PATIENT RECEIVED FROM ER IN STABLE CONDITION, NO SIGNS OF RESPIRATORY DISTRESS NOTED. PATIENT IS IN ALTERED MENTAL STATUS AND VOICES PAIN WHEN MOVED. PATIENT HAS BEEN CLEANED WITH HELP OF TECH AND IV IS LOCATED ON RIGHT ANKLE AND IS PATENT AND INTACT. TELEMONITOR IS PLACED ON PATIENT AND SINUS TACH IS NOTED. BED IS IN LOWEST POSITION, BOTH SIDE RAILS ARE UP, BED ALARM IS ON, CALL LIGHT IS WITHIN REACH , WILL CONTINUE TO MONITOR.
[2019-05-01 23:18] VITALS: BP 100/59
[2019-05-01 23:20] VITALS: BP 100/59
[2019-05-02] VITALS (8 sets, daily range): BP systolic 78–124; BP diastolic 52–61
--- NOTE | 2019-05-02 07:00 | NUR ---
BEDSIDE SHIFT REPORT RECEIVED FROM PRINTING AGENT RN. PT DENIES NEEDS AT THIS TIME.
[2019-05-02] MEDS ORDERED: TRAMADOL HCL 50 MG TAB PO PRN (13:00)
[2019-05-02] MEDS ORDERED: ONDANSETRON HCL INJ 2MG/ML 2ML 2 MG/ML VIAL IV PRN (13:15)
[2019-05-02] MEDS ORDERED: ACETAMINOPHEN 325 MG TAB PO PRN (13:15)
[2019-05-02] MEDS ORDERED: HYDRALAZINE HCL 20 MG/ML VIAL IV PRN (13:15)
[2019-05-02] MEDS: LACTULOSE SYRUP 20 GM/30 ML UDC PO SCH ×2 (14:39→21:00)
[2019-05-02] MEDS ORDERED: MIDODRINE 2.5 MG TAB PO SCH (15:00)
[2019-05-02] MEDS: MIDODRINE HCL 5 MG TABLET PO SCH (16:16)
[2019-05-02] MEDS: RIFAXIMIN 550 MG TABLET PO SCH (16:16)
--- NOTE | 2019-05-02 19:19 | NUR ---
Report given to Miguelina Sommers RN
--- NOTE | 2019-05-02 19:30 | NUR ---
Walking rounds complete, pt alert resp even and unlabored, no distress noted. call light in reach.
[2019-05-02] MEDS ORDERED: QUETIAPINE FUMARATE 25 MG TAB PO SCH (21:00)
[2019-05-03] VITALS (8 sets, daily range): BP systolic 75–136; BP diastolic 51–79
[2019-05-03 05:36] LABS: BASOPHILS # (AUTO) 0.1 (0.0-0.1); BASOPHILS % 0.7 % (0.0-1.0); EOSINOPHILS # (AUTO) 0.2 (0.0-0.4); EOSINOPHILS % 1.8 % (0.0-6.0); HEMATOCRIT 28.4 % (34.2-44.1); HEMOGLOBIN 9.3 g/dL (12.0-16.0); LYMPHOCYTES # (AUTO) 1.5 (1.0-3.2); LYMPHOCYTES % 14.5 % (18.0-39.1); MEAN CORPUSCULAR HEMOGLOBIN 30.6 pg (28-32); MEAN CORPUSCULAR HGB CONC 32.7 g/dL (31-35); MEAN CORPUSCULAR VOLUME 93.4 fL (81-99); MONOCYTES # (AUTO) 0.8 (0.2-0.8); MONOCYTES % 7.9 % (4.4-11.3); NEUTROPHILS # (AUTO) 7.5 (2.1-6.9); NEUTROPHILS % 73.3 % (38.7-80.0); RED BLOOD COUNT 3.04 x10e6/uL (3.6-5.1); RED CELL DISTRIBUTION WIDTH 22.6 % (11.7-14.4)
[2019-05-03 05:53] LABS: PLATELET COUNT 48 x10e3/uL (140-360)
[2019-05-03 06:11] LABS: CALCIUM 9.7 mg/dL (8.4-10.2); CREATININE, SERUM 11.16 mg/dL (0.57-1.11)
--- NOTE | 2019-05-03 07:24 | NUR ---
Walking rounds complete, report given to oncoming nurse.
[2019-05-03] MEDS ORDERED: SODIUM CHLORIDE 0.9% 1000ML 2,000 ML ONE (08:53)
[2019-05-03] MEDS ORDERED: VITAMIN B COMPLEX PO SCH (09:00)
[2019-05-03] MEDS: RIFAXIMIN 550 MG TABLET PO SCH ×2 (09:00→17:00)
[2019-05-03] MEDS: OYST-CAL-D 500MG TABLET PO SCH (09:00)
[2019-05-03] MEDS: FOLIC ACID/CYANOCOB/PYRIDOXINE TAB PO SCH (09:00)
[2019-05-03] MEDS: LACTULOSE SYRUP 20 GM/30 ML UDC PO SCH ×3 (09:00→21:00)
[2019-05-03] MEDS: PANTOPRAZOLE SOD 40 MG TABEC PO SCH (09:00)
[2019-05-03 09:11] LABS: ANISOCYTOSIS SLIGHT; RBC MORPHOLOGY COMMENT ABNORMAL
--- NOTE | 2019-05-03 09:15 | Consultation ---
DATE OF CONSULTATION: 05/02/2019 Renal Consultation REASON FOR CONSULTATION: End-stage renal disease. HISTORY OF PRESENT ILLNESS: A 69-year-old female with end-stage renal disease, on hemodialysis Friday, Friday, Friday, who was brought to [facility] by her family for altered mental status and refusing care. The patient apparently has developed worsening pain. She was recently admitted with an L1 vertebral fracture and refused to go to dialysis for approximately one week. The patient was admitted and Nephrology consultation was called. Nurses report any time patient moves, she complains of severe back pain. REVIEW OF SYSTEMS: Limited, but all systems otherwise negative. PAST MEDICAL HISTORY: 1. End-stage renal disease, on hemodialysis Friday, Friday, Friday through tunneled dialysis catheter. 2. Cirrhosis. 3. GERD. 4. Dyslipidemia. 5. Rheumatoid arthritis. 6. Primary biliary cirrhosis. 7. Esophageal stricture. PAST SURGICAL HISTORY: 1. Cholecystectomy. 2. . 3. Knee replacement. 4. Tonsillectomy. 5. Tunneled dialysis catheter. 6. Kyphoplasty. SOCIAL HISTORY: No tobacco. No alcohol. No IV drugs. FAMILY HISTORY: No family history of kidney disease. ALLERGIES: NO KNOWN DRUG ALLERGIES. CURRENT MEDICATIONS: See list. PHYSICAL EXAMINATION: VITAL SIGNS: Blood pressure 133/77, pulse 132, temperature 97.3, and respiratory rate 16. GENERAL: No apparent distress. HEENT: Oropharynx clear. No scleral icterus. No periorbital edema. NECK: Supple. No elevation of jugular venous pressure. No lymphadenopathy. CHEST: Clear to auscultation anteriorly bilaterally. CARDIOVASCULAR: Regular rhythm. ABDOMEN: Soft. Positive bowel sounds. No tenderness. No rebound. EXTREMITIES: No edema. No clubbing. No cyanosis. SKIN: Warm. LABORATORY DATA: Sodium 136, potassium 5.2, chloride 100, CO2 19, BUN 79, creatinine 8.79, and calcium 10.6. Alkaline phosphatase 607. Troponin 0.387. BNP 590. Albumin 2.5. White count 10.16, hemoglobin 12.1, hematocrit 37, and platelets 51. ASSESSMENT AND PLAN: 1. End-stage renal disease. We will schedule the patient for hemodialysis in the morning. Continue Friday, Friday, Friday. 2. Hyperkalemia, very mild, on renal diet, received Kayexalate. 3. Hypertension. Blood pressure currently controlled. 4. Anemia secondary to chronic kidney disease. We will resume the patient's Epogen. 5. Back pain. Will need re-evaluation. The patient recently had kyphoplasty. MD SIMA Vick/SHERI /[id number]
[2019-05-03] MEDS: MIDODRINE HCL 5 MG TABLET PO SCH ×3 (09:28→17:50)
--- NOTE | 2019-05-03 09:48 | NUR ---
Patient up in bed, not in any distress , Dialysis nurse in room to do Dialysis
[2019-05-03] MEDS ORDERED: ALBUMIN 25% 12.5GM 0.25 GM/ML BTL IV PRN (12:15)
[2019-05-03] MEDS ORDERED: SODIUM CHLORIDE 0.9% 1000ML 2,000 ML IV PRN (12:15)
[2019-05-03] MEDS ORDERED: MANNITOL 25% 12.5GM/50 ML VIAL IV PRN (12:15)
[2019-05-03] MEDS ORDERED: SODIUM CHLORIDE 0.9% 250ML 750 ML IV PRN (12:15)
--- NOTE | 2019-05-03 12:19 | NUR ---
Nutrition Intervention Note RD Recommendation(s) for Physician: -Continue current diet per MD. -Recommend Nepro BID. -The patient meets criteria for MILD protein-calorie malnutrition. Plan of Care: RD following, monitoring for tolerance and adequacy. Nepro BID. Nutrition reason for involvement: MD Consult- protein calorie malnutrition RD Assessment 05/02: 69 YOF admitted for AMS and FTT with PMH listed below. The pt was seen sleeping in bed, did not awake to voice. Breakfast tray was at bedside. Received consult from SEED TESTER regarding possible protein calorie malnutrition. No family was at bedside, the consult reported the pt stopped eating about one week ago d/t depression. Per EMR, the pts weight fluctuates. In Mar the pt was 138 lbs but in Feb her weight was 151 lbs, in January the pt weighed 172 lbs. Pts dry weight is unknown. These fluctuations could be related to fluid. Pt has had a 4.6% weight loss within 2 months. Spoke with nurse to recommend Nepro supplement, he verbalized understanding and reported he will order it. Will continue to monitor. Principal Problems/Diagnoses:AMS, FTT PMH: 1. End-stage renal disease, on hemodialysis Friday, Friday, Friday through tunneled dialysis catheter. 2. Cirrhosis. 3. GERD. 4. Dyslipidemia. 5. Rheumatoid arthritis. 6. Primary biliary cirrhosis. 7. Esophageal stricture. GI:Abd: soft, non tender, LBM: not recorded Skin: no pressure ulcer recorded Labs: 05/02: CO2 20, Anion gap: 24, BUN 99, Creat 11.16, Gluc 73 Meds: lactulose, utram, zofran, steroid, protonix, calcium carbonate Ht:63 in Wt:144 lbs BMI:25.5 kg/m^2 IBW:115 lbs Malnutrition Evaluation (05/02) The patient meets criteria for MILD protein-calorie malnutrition. Energy intake: <75% of estimated energy requirements for >7 days Weight loss: . Pt has had a 4.6% weight loss within 2 months Fat loss: Mild-fat loss around pts eyes Muscle loss: Mild-temporal muscle loss around temporal Supporting Evidence: Fluid accumulation: no edema per MD note Functional Status: unable to evaluate Nutrition Prescription (Diet Order): renal Estimated Nutritional Needs: Calories: 1170-1430kcal/day (18-22 kcal/kg/day) Weight used : CBW (65 kg) Protein : 78-96protein/day (1.2-1.5 gram/kg/day ) Weight used: CBW Diet Adequacy: Not meeting calorie needs, Not meeting protein needs Diet Education Needs Assessment: Diet education indicated, but patient not appropriate for education at this time. Nutrition Care Level: mod Nutrition Diagnosis: Mild protein calorie malnutrition related to medical condition as evidenced by reports of poor appetite and weight loss. Goal: Patient will meet 75-100% of estimated needs by follow up Progress: (N/A) Interventions: -( mineral (sodium, phos, potassium) modified diet, Commercial beverage, Prescription medications, Skill Development, Multivitamin/mineral supplement therapy, Collaboration with other providers Monitoring/Evaluation: -Total energy intake, Total protein intake, Prescription medication, Modified diet, Liquid supplement, Weight change Signed: Anh Haley RD, LD
[2019-05-03] MEDS ORDERED: HEPARIN SOD (PORCINE) 1000 UNIT/ML SDV IV PRN (12:30)
--- NOTE | 2019-05-03 13:38 | NUR ---
RECEIVED ORDER FOR PLACEMENT, PT WILL NEED [facility] PLACEMENT MEDICAID PENDING BED. GAVE OPTIONS INCASE ABLE TO BE SKILLED. CALLED ALL BUILDING IN NETWORK AND ONLY ONE THAT HAS A PENDING BED AVAILABLE IS [facility], SIGNED CHOICE COMPLETED [facility] AND CALLED REP TO COME ANIMAL CARE ASSISTANT PACKET. DAUGHTER IS INDECISIVE AND IS STILL WANTING TO CARE FOR HER AT HOME. BUT WILL LOOK AT BUILDING IF DECIDED TO SEND.
--- NOTE | 2019-05-03 13:50 | NUR ---
Patient is on Dialysis running low BP, Dr Borrero aware, orders for Albumin 2 bottles with Dialysis received
--- NOTE | 2019-05-03 14:10 | NUR ---
Per patient's daughter they dont need any Hospice, she was asking feeding tubing placement,
[2019-05-03] MEDS: PREDNISONE 10 MG TAB PO SCH (17:49)
[2019-05-03] MEDS: EPOETIN ALFA-EPBX 10,000 UNIT/ML VIAL SC SCH (17:50)
--- NOTE | 2019-05-03 18:11 | NUR ---
Patient BP was 84/52, lethargic, opening eye, not talking, daughter at bed side, Notified Dr PORRAS, NEW ORDERS RECEIVED, Patient not in any distress now, patient got order for rectal enema of Lactulose since she is not taking PO Lactulose
[2019-05-03] MEDS ORDERED: SODIUM CHLORIDE 0.9% 1000ML 1,000 ML IV SCH ×2 (18:55→19:00)
--- NOTE | 2019-05-03 18:55 | NUR ---
Bedside report complete with morning nurse. BP with low BP 84/52. Morning nurse received orders from renal doctor. Pt alert to name only with verbal stimuli. Lethargic. Bed low and locked. Will continue to monitor.
[2019-05-03] MEDS ORDERED: LACTULOSE SYRUP 20 GM/30 ML UDC RC ONE (19:00)
[2019-05-04] VITALS (8 sets, daily range): BP systolic 94–123; BP diastolic 52–60
[2019-05-04 05:46] LABS: ANION GAP 16.7 mmol/L (8-16); CALCIUM 9.2 mg/dL (8.4-10.2); CREATININE, SERUM 4.09 mg/dL (0.57-1.11); POTASSIUM 3.7 mmol/L (3.5-5.1)
[2019-05-04 05:54] LABS: BASOPHILS % 0.4 % (0.0-1.0); EOSINOPHILS # (AUTO) 0.1 (0.0-0.4); EOSINOPHILS % 0.9 % (0.0-6.0); LYMPHOCYTES # (AUTO) 0.7 (1.0-3.2); LYMPHOCYTES % 13.2 % (18.0-39.1); MEAN CORPUSCULAR HEMOGLOBIN 30.3 pg (28-32); MEAN CORPUSCULAR HGB CONC 32.4 g/dL (31-35); MEAN CORPUSCULAR VOLUME 93.5 fL (81-99); MONOCYTES # (AUTO) 0.6 (0.2-0.8); MONOCYTES % 11.3 % (4.4-11.3); NEUTROPHILS # (AUTO) 4.1 (2.1-6.9); NEUTROPHILS % 72.9 % (38.7-80.0); RED BLOOD COUNT 2.31 x10e6/uL (3.6-5.1); RED CELL DISTRIBUTION WIDTH 22.5 % (11.7-14.4)
[2019-05-04 06:13] LABS: HEMATOCRIT 21.6 % (34.2-44.1)
[2019-05-04 06:14] LABS: PLATELET COUNT 42 x10e3/uL (140-360)
--- NOTE | 2019-05-04 06:50 | NUR ---
BS shift report completed. Pt no acute distress noted. Dr. Segundo paged for Plt 42.
[2019-05-04] MEDS ORDERED: DIPHENHYDRAMINE HCL INJ 50 MG/ML VIAL IV PRN (07:45)
[2019-05-04 08:17] LABS: BAND NEUTROPHILS % (MANUAL) 9 %; LYMPHOCYTES % (MANUAL) 7 % (19-48); METAMYELOCYTES % (MANUAL) 1 % (0-0); MONOCYTES % (MANUAL) 13 % (3.4-9.0); NEUTROPHILS % (MANUAL) 70 % (40-74)
[2019-05-04 08:20] LABS: ANISOCYTOSIS SLIGHT; POLYCHROMASIA FEW
[2019-05-04 08:21] LABS: HYPOCHROMASIA SLIGHT; PLATELET ESTIMATE MARKEDLY DECREASED; PLATELET MORPHOLOGY COMMENT NORMAL
[2019-05-04] MEDS ORDERED: SODIUM CHLORIDE 0.9% 250ML 250 ML IV ONE (08:30)
[2019-05-04] MEDS: FOLIC ACID/CYANOCOB/PYRIDOXINE TAB PO SCH (09:00)
[2019-05-04] MEDS: OYST-CAL-D 500MG TABLET PO SCH (09:00)
[2019-05-04] MEDS: RIFAXIMIN 550 MG TABLET PO SCH ×2 (09:00→17:00)
[2019-05-04] MEDS: PANTOPRAZOLE SOD 40 MG TABEC PO SCH (09:00)
[2019-05-04] MEDS ORDERED: LORAZEPAM INJ 2 MG/ML VIAL IM ONE (09:20)
[2019-05-04] MEDS: PREDNISONE 10 MG TAB PO SCH (09:32)
[2019-05-04] MEDS: MIDODRINE HCL 5 MG TABLET PO SCH ×2 (09:32→13:20)
[2019-05-04] MEDS: LACTULOSE SYRUP 20 GM/30 ML UDC RC SCH ×3 (09:40→21:00)
--- NOTE | 2019-05-04 09:55 | NUR ---
SPOKE WITH DAUGHTER VIA PHONE, SHE STATES NOT HAPPY WITH CHOICE OF [facility], SHE STATES SHE WENT TO [facility] AND WOULD PREFER TO SEND HER MOTHER THERE. CALLED TO SPEAK WITH JULIUS AT [facility], SHE WAS IN A MEETING, VERIFIED DAUGHTER CAME BY AND LEFT NUMBER TO RETURN CALL, FAXED CLINICALS AND PASRR TO [phone], UPDATED PACKET AND CHART. RTF CORRECTED AND PUT ON PACKET.
[2019-05-04 10:08] LABS: IRON 62 ug/dL (50-170); TRANSFERRIN < 70 mg/dL (180-382)
--- NOTE | 2019-05-04 11:02 | NUR ---
SPOKE WITH JULIUS AT [facility], I WILL HAVE TO TRANSFER THE DIALYSIS CHAIR TO A [facility] ([facility]) WHOM THE BUILDING HAS CONTRACTS WITH. DAUGHTER HAS TO GO TO FACILITY AND COMPLETE PENDING PAPERWORK, THEY FACILITY HAS SUBMITTED THE CLINICALS TO [employer] TO DETERMINE IF THEY WILL APPROVE THE PALLIATIVE CARE STAY BUT ARE MOVING FORWARD WITH THE PENDING STATUS TO COVER IF DENIED.
[2019-05-04 11:42] LABS: FERRITIN 3617.13 ng/mL (4.63-204.00)
[2019-05-04] MEDS ORDERED: SODIUM CHLORIDE 0.9% 250ML 250 ML ONE (12:30)
--- NOTE | 2019-05-04 15:45 | NUR ---
WAS CALLED BY JULIUS AT [facility] FAMILY IS COMPLETING THE PAPERWORK AND SHOULD BE READY FOR ACCEPTANCE TOMORROW TO [facility]. ABLE TO GET LANDON AT [facility] [phone] TO TRANSFER TO [facility] FACILITY WILL CALL TO CONFIRM IF ABLE TO COMPLETE IN AM.
--- NOTE | 2019-05-04 16:30 | NUR ---
1 unit of blood transfusion finished, no adverse reaction noted, patient is more alert and talking, BP 108/72, No distress noted, family at bedside. keep monitoring
[2019-05-04] MEDS: LORAZEPAM 0.5 MG TAB PO SCH (17:00)
[2019-05-04] MEDS: VENLAFAXINE HCL 37.5MG XR CAP PO SCH (17:00)
--- NOTE | 2019-05-04 19:00 | NUR ---
Bedside report complete with morning nurse. Pt alert to name. No s/s of pain. Family at bedside. Bed low and locked. Will continue to monitor.
[2019-05-05] VITALS (7 sets, daily range): BP systolic 92–112; BP diastolic 53–67
[2019-05-05 07:13] LABS: HEMATOCRIT 26.9 % (34.2-44.1); HEMOGLOBIN 9.2 g/dL (12.0-16.0); MEAN CORPUSCULAR HEMOGLOBIN 30.7 pg (28-32); MEAN CORPUSCULAR HGB CONC 34.2 g/dL (31-35); MEAN CORPUSCULAR VOLUME 89.7 fL (81-99); RED CELL DISTRIBUTION WIDTH 19.9 % (11.7-14.4)
[2019-05-05 07:21] LABS: PLATELET COUNT 41 x10e3/uL (140-360)
--- NOTE | 2019-05-05 08:46 | NUR ---
DAUGHTER GRECIA HAS DECIDED TO TAKE MOTHER HOME AND SPEAK WITH [facility] AND SEE IF SHE WANTS TO CHANGE TO THEIR SERVICE OR KEEP THE ONE SHE HAS, CALLED JOHN AT [facility], PER DR LOPEZ HE WOULD LIKE FOR HER TO CONTINUE DIALYSIS AND BE SET UP FOR TRANSPORT, JOHN WILL WORK ON THAT AND IS PLANNING A FRIDAY RETURN DATE.
[2019-05-05] MEDS: MIDODRINE HCL 5 MG TABLET PO SCH ×3 (08:50→16:49)
[2019-05-05] MEDS: PREDNISONE 10 MG TAB PO SCH (08:50)
[2019-05-05] MEDS: OYST-CAL-D 500MG TABLET PO SCH (08:51)
[2019-05-05] MEDS: LORAZEPAM 0.5 MG TAB PO SCH (08:51)
[2019-05-05] MEDS: PANTOPRAZOLE SOD 40 MG TABEC PO SCH (08:51)
[2019-05-05] MEDS: RIFAXIMIN 550 MG TABLET PO SCH ×2 (08:51→16:50)
[2019-05-05] MEDS: FOLIC ACID/CYANOCOB/PYRIDOXINE TAB PO SCH (08:51)
[2019-05-05] MEDS: VENLAFAXINE HCL 37.5MG XR CAP PO SCH (08:51)
[2019-05-05] MEDS: LACTULOSE SYRUP 20 GM/30 ML UDC RC SCH ×3 (08:52→20:56)
--- NOTE | 2019-05-05 09:22 | NUR ---
Nutrition Intervention Note RD Recommendation(s) for Physician: -Continue current diet per MD. -Recommend Nepro BID. -Consider appetite stimulant per MD. -Continue nephro-emilee tablet. -Recommend to place NGT if medically feasible within 24-48 hours (pt has been refusing to eat for the past three days) TF rec via NGT: Nepro at 10 ml/hr advance as tolerated to goal rate of 35 ml/hr with 30 ml of water flushed every 4 hours. (1512 kcal, 68 kcal) -IVF management and additional flushes per MD. -The patient meets criteria for MODERATE protein-calorie malnutrition. Plan of Care: RD following, monitoring for tolerance and adequacy. Nepro BID. Nutrition reason for involvement: MD Consult- protein calorie malnutrition RD Assessment 05/04: Follow up/MD consult: Received consult for malnutrition. Visited the pt, she was sleeping and untouched tray was at her bedside. There was no family in the room. Per meal assessment pt only consumed 25% of two meals within 3 days. Recommend appetite stimulant of placing NGT to help the pt meet her energy and protein needs. Will continue to monitor. 05/02: 69 YOF admitted for AMS and FTT with PMH listed below. The pt was seen sleeping in bed, did not awake to voice. Breakfast tray was at bedside. Received consult from GEAR REPAIR SUPERVISOR regarding possible protein calorie malnutrition. No family was at bedside, the consult reported the pt stopped eating about one week ago d/t depression. Per EMR, the pts weight fluctuates. In Mar the pt was 138 lbs but in Feb her weight was 151 lbs, in January the pt weighed 172 lbs. Pts dry weight is unknown. These fluctuations could be related to fluid. Pt has had a 4.6% weight loss within 2 months. Spoke with nurse to recommend Nepro supplement, he verbalized understanding and reported he will order it. Will continue to monitor. Principal Problems/Diagnoses:AMS, FTT PMH: 1. End-stage renal disease, on hemodialysis Friday, Friday, Friday through tunneled dialysis catheter. 2. Cirrhosis. 3. GERD. 4. Dyslipidemia. 5. Rheumatoid arthritis. 6. Primary biliary cirrhosis. 7. Esophageal stricture. GI:Abd: soft, non tender, LBM: 05/03 Skin: no pressure ulcer recorded Labs: 05/04: labs reviewed 05/02: CO2 20, Anion gap: 24, BUN 99, Creat 11.16, Gluc 73 Meds: lactulose, utram, zofran, steroid, protonix, calcium carbonate, nephrovite Ht: 63 in Wt: 144 lbs BMI: 25.5 kg/m^2 IBW: 115 lbs Malnutrition Evaluation (05/04) The patient meets criteria for MODERATE protein-calorie malnutrition. Energy intake: <50% of estimated energy requirements for >5 days Weight loss: Pt has had a 4.6% weight loss within 2 months Fat loss: Moderate-fat loss around pts eyes Muscle loss: Mild-temporal muscle loss around temporal Supporting Evidence: Fluid accumulation: no edema per MD note Functional Status: unable to evaluate Nutrition Prescription (Diet Order): renal Estimated Nutritional Needs: Calories: 0523-6981 kcal/day (18-22 kcal/kg/day) Weight used : CBW (65 kg) Protein : 65-96 protein/day (1-1.5 gram/kg/day ) Weight used: CBW Diet Adequacy: Not meeting calorie needs, Not meeting protein needs Diet Education Needs Assessment: Diet education indicated, but patient not appropriate for education at this time. Nutrition Care Level: mod Nutrition Diagnosis: Moderate protein calorie malnutrition related to medical condition as evidenced by reports of poor appetite and weight loss. Goal: Patient will meet 75-100% of estimated needs by follow up Progress: not progressing Interventions: -( mineral (sodium, phos, potassium) modified diet, Commercial beverage, Prescription medications, Skill Development, Multivitamin/mineral supplement therapy, Collaboration with other providers Monitoring/Evaluation: -Total energy intake, Total protein intake, Prescription medication, Modified diet, Liquid supplement, Weight change Signed: Anh Haley RD, LD Addendum: 05/05/19 at 1004 by Anh Haley DIET Spoke with nurse who reported the family is meeting with hospice. Spoke with the nurse regarding the pt's moderate protein calorie malnutrition evaluation, she verbalized understanding and reported she will speak with GEAR REPAIR SUPERVISOR regarding evaluation. Will make coders aware of evaluation.
[2019-05-05 09:39] LABS: EOSINOPHILS % (MANUAL) 2 % (0-7); LYMPHOCYTES % (MANUAL) 16 % (19-48); MONOCYTES % (MANUAL) 1 % (3.4-9.0); MYELOCYTES % (MANUAL) 1 % (0-0); NEUTROPHILS % (MANUAL) 80 % (40-74)
[2019-05-05 09:40] LABS: ANISOCYTOSIS MODERATE; POLYCHROMASIA FEW
[2019-05-05 09:41] LABS: PLATELET ESTIMATE MARKEDLY DECREASED; PLATELET MORPHOLOGY COMMENT NORMAL; RBC MORPHOLOGY COMMENT NORMAL
--- NOTE | 2019-05-05 10:32 | NUR ---
MET WITH [facility], PER THEIR SW SHE TOLD THEM SHE IS STILL THINKING OF SKILLED SERVICE. LET PALLET ASSEMBLER KNOW WHAT WAS REPORTED TO ME. ALSO LET HER KNOW WE WILL NEED DECISION SOON
[2019-05-05] MEDS ORDERED: HEPARIN SOD (PORCINE) 1000 UNIT/ML SDV IV PRN (12:45)
[2019-05-05] MEDS: EPOETIN ALFA-EPBX 10,000 UNIT/ML VIAL SC SCH (12:55)
--- NOTE | 2019-05-05 12:56 | NUR ---
patient finished with dialysis session. 1L removed per craft artist report. sitting in bed at this time, doing well. family at bedside. WCTM.
--- NOTE | 2019-05-05 13:00 | NUR ---
patient resting in bed. family at bedside. no concerns. CM and attending working on discharge plan for patient.
--- NOTE | 2019-05-05 13:38 | Progress Note ---
DATE: 05/04/2019 Psychiatric Progress Note SUBJECTIVE: The patient is in the room. She is talking little bit more after she got the Ativan this morning. Her vital signs, blood pressure is still somewhat low. She denies any depression. She is oriented to year and self, but does not know where she is. She denies any hallucination. She denies any suicidal or homicidal ideation. She reports sleeping and eating well. She is still having some psychomotor retardation. I discussed with nursing staff and medical ARMATURE WINDER REPAIR HELPER regarding the case. The patient appears to be slightly improved with the Ativan p.r.n. IM one time dose. ASSESSMENT: 1. Unspecified psychosis. 2. Major depressive disorder, single, severe. 3. Rule out catatonia. PLAN: 1. Add a small dose of Ativan 0.25 mg p.o. b.i.d. with parameters to hold for sedation or if systolic blood pressure less than 90. 2. Add Effexor XR 37.5 mg p.o. daily. 3. Seroquel was discontinued yesterday. 4. Monitor for mood. 5. Supportive therapy. Dictated by Marge Harris PA-C MD HELEN Ramos/SHERI /[id number]
--- NOTE | 2019-05-05 15:03 | Consultation ---
DATE OF CONSULTATION: 05/03/2019 Psychiatric Consultation REASON FOR CONSULTATION: To evaluate the patient's mood, which is dementia and anxiety. HISTORY OF PRESENT ILLNESS: The patient is a 69-year-old female, admitted to the hospital for altered mental status. Psychiatric consultation is called to evaluate the patient's mood. As per the medical record, the patient has history of end-stage renal disease, on hemodialysis. She was taken to the hospital for altered mental status and refusing care. The patient also has history of cirrhosis, GERD, dyslipidemia, osteoarthritis, esophageal stricture, and primary biliary cirrhosis. Upon evaluation today, the patient is found to be in the room receiving dialysis. Her daughter and sister in the room. The patient is refusing to answer any questions, but she open her eyes, but not responding. She appears to have some psychomotor retardation as well, not moving around much. Collaborative report from the daughter, who claims that the patient has been sleeping a lot more. She missed her dialysis and for the last one week or so, she stopped talking. Before that family member claims that the patient has been depressed, telling them she wants to and to leave her alone. Her ammonia level does have a tendency to be increased. Ammonia level on April 30 is 56, ranges 31 to 123, and ammonia level on the is 114. The range is again 31 to 123. Family members believe that she is depressed, but she has not reported to them that she wanted to take her life. She has not been hallucinating as per family. She has been refusing to eat and drink, and has not been talking much to them. PAST PSYCHIATRIC HISTORY: The patient has no past psychiatric history. She never attempted to suicide in the past. She does not drink alcohol or use any drugs. FAMILY HISTORY: She has a daughter with bipolar and depression. SOCIAL HISTORY: The patient lives with her daughter. MENTAL STATUS EXAM: The patient is an elderly female. She is alert, awake, and responding to questions. She is having some psychomotor retardation. She refuses to answer any other questions. Her assessment is limited due to her uncooperativeness. MEDICATIONS: 1. Heparin. 2. Albumin. 3. Mannitol. 4. Sodium chloride. 5. Folic acid. 6. Acetaminophen. 7. Ondansetron. 8. Hydralazine. 9. Prednisolone. 10. Seroquel 25 mg p.o. at bedtime. CURRENT LABORATORY DATA: WBC 10.12, RBC 2.04, hemoglobin 9.2, hematocrit 28.4, and platelets 48. Sodium 142, potassium 5, chloride 103, CO2 20, BUN 99, and creatinine 11.16. AST 153 and ALT 94. ASSESSMENT: 1. Unspecified psychosis. 2. Major depression, single episode, severe. 3. Rule out catatonia. PLAN: 1. To add one dose of Ativan p.r.n. p.o. or IM for catatonia to be given when her blood pressure improves and have nursing staff evaluate the patient for improvement every 15 minutes for next 1 hour. 2. Discussed with nursing staff. 3. Consider further medications after nursing staff is able to administer Ativan to the patient. Dictated by Marge Harris PA-C Anais Ramesh MD QTV/MODL /[id number]
--- NOTE | 2019-05-05 16:25 | NUR ---
CALLED SISTER PER REQUEST FROM FAMILY TO DISCUSS WHAT HOSPICE IS AND THE ABILITIES OF THEIR CARE. CALLED AND LEFT MESSAGE FOR [facility] [phone].
--- NOTE | 2019-05-05 16:52 | NUR ---
patient declining to take meds this evening. educated on importance of scheduled medications.
[2019-05-05] MEDS: LORAZEPAM 0.5 MG TAB PO PRN (20:20)
[2019-05-05] MEDS ORDERED: MEGESTROL ACETATE 40 MG TAB PO NR (21:00)
[2019-05-05] MEDS ORDERED: FOLIC ACID/CYANOCOB/PYRIDOXINE TAB PO NR (21:00)
[2019-05-06] VITALS (7 sets, daily range): BP systolic 95–110; BP diastolic 51–64
--- NOTE | 2019-05-06 07:15 | NUR ---
PATIENT IN BED RESTING WITH EYES CLOSED, NO DISTRESS NOTED. TELEMETRY BOX IN PLACE. BED IN LOWER POSITION, CALL LIGHT AT REACH.
[2019-05-06] MEDS: VENLAFAXINE HCL 37.5MG XR CAP PO SCH (09:00)
[2019-05-06] MEDS: LACTULOSE SYRUP 20 GM/30 ML UDC RC SCH ×4 (09:00→21:14)
[2019-05-06] MEDS: FOLIC ACID/CYANOCOB/PYRIDOXINE TAB PO SCH (09:13)
[2019-05-06] MEDS: PREDNISONE 10 MG TAB PO SCH (09:13)
[2019-05-06] MEDS: MEGESTROL ACETATE 40 MG TAB PO SCH ×2 (09:13→17:11)
[2019-05-06] MEDS: PANTOPRAZOLE SOD 40 MG TABEC PO SCH (09:13)
[2019-05-06] MEDS: RIFAXIMIN 550 MG TABLET PO SCH ×2 (09:13→17:11)
[2019-05-06] MEDS: OYST-CAL-D 500MG TABLET PO SCH (09:13)
[2019-05-06] MEDS: MIDODRINE HCL 5 MG TABLET PO SCH ×3 (09:13→17:11)
--- NOTE | 2019-05-06 09:22 | Progress Note ---
DATE: 05/05/2019 Psychiatric Progress Note SUBJECTIVE: The patient evaluated and events noted. The patient is doing better. She is in the room. She is answering questions. She denies any anxiety or depression. She denies any hallucination. She is still somewhat confused, but however, patient's sister, who is in the room report that the patient is doing much better. The patient did not get any Ativan scheduled dose due to sedation. ASSESSMENT: 1. Unspecified psychosis. 2. Major depressive disorder, single, moderate. 3. Rule out catatonia. PLAN: 1. Discontinue Ativan 0.25 mg p.o. b.i.d. 2. Continue Effexor XR 37.5 mg p.o. daily. 3. Continue Ativan 0.5 mg p.o. daily as needed for catatonia with parameters. 4. Monitor for mood. 5. Supportive therapy. Dictated by Marge Harris PA-C MD SHARATH RamosV/SHERI /[id number]
--- NOTE | 2019-05-06 10:37 | NUR ---
PHYSICAL THERAPY IN ROOM TO EXERCISE WITH PATIENT, FAMILY AT BED SIDE.
--- NOTE | 2019-05-06 13:34 | NUR ---
CALLED DAUGHTER GRECIA AND SHE STATES SHE IS NOT GOING TO LET HER MOTHER GO WITH HER SISTER, SHE IS GOING TO TAKE HER HOME, REQUESTING HOME HEALTH PT AND OT, ALSO REQUESTING A HOSPITAL BED. STATES SHE FEELS HER MOTHER IS GOING TO FIGHT NOW AND REFUSING HOSPICE. ASKED ABOUT HOME HEALTH CHOICE SHE STATES [facility] IS FINE AND IF NOT TO USE [facility]. AND [facility] FOR THE HOSPITAL BED. FAXED CLINICALS TO [facility] FOR AUTH. LET CM, AND AUCTION ASSISTANT KNOW DECISION. FILED CHOICE IN CHART.
--- NOTE | 2019-05-06 16:13 | NUR ---
PATIENT REPOSITIONED IN BED. ALL PERSONAL ITEMS CLOSE TO PATIENT, CALL LIGHT AT REACH.
--- NOTE | 2019-05-06 16:56 | NUR ---
[facility] CALLED AND IS ACCEPTING THE PT AND WILL SET UP SERVICES FOR DAY AFTER DISCHARGE.
[2019-05-07] VITALS: BP 119/89
[2019-05-07] MEDS: LORAZEPAM 0.5 MG TAB PO PRN (01:03)
[2019-05-07 04:00] VITALS: BP 118/57
--- NOTE | 2019-05-07 07:16 | NUR ---
PATIENT IN BED WITH HEAD OF BED ELEVATED, NO DISTRESS NOTED. DENIED PAIN AT THIS TIME. BED IN LOWER POSITION, CALL LIGHT AT REACH.
[2019-05-07 07:18] VITALS: BP 134/75
[2019-05-07 07:51] VITALS: BP 134/75
[2019-05-07] MEDS: MIDODRINE HCL 5 MG TABLET PO SCH ×3 (08:00→17:00)
--- NOTE | 2019-05-07 08:24 | NUR ---
SPOKE WITH JENNIFER AT [facility], PT DOES NOT QUALIFY FOR HOME DIALYSIS. SPOKE WITH DAUGHTER GRECIA, WHOM STATES SHE UNDERSTANDS AND TO LET [facility] KNOW TO CONTINUE WITH THE TRANSPORT. ALSO SPOKE WITH HER AGAIN TODAY AND CONFIRMED THE HOME HEALTH WILL SEE HER DAY AFTER DISCHARGE AND TEXTED TO SEE UPDATE ON BED. HOPEFUL DELIVERED TODAY.
[2019-05-07] MEDS: FOLIC ACID/CYANOCOB/PYRIDOXINE TAB PO SCH (09:00)
[2019-05-07] MEDS: PREDNISONE 10 MG TAB PO SCH (09:00)
[2019-05-07] MEDS: MEGESTROL ACETATE 40 MG TAB PO SCH ×2 (09:00→17:00)
[2019-05-07] MEDS: VENLAFAXINE HCL 37.5MG XR CAP PO SCH (09:00)
[2019-05-07] MEDS: RIFAXIMIN 550 MG TABLET PO SCH ×2 (09:00→17:00)
[2019-05-07] MEDS: OYST-CAL-D 500MG TABLET PO SCH (09:00)
[2019-05-07] MEDS: PANTOPRAZOLE SOD 40 MG TABEC PO SCH (09:00)
[2019-05-07] MEDS: LACTULOSE SYRUP 20 GM/30 ML UDC RC SCH ×2 (09:18→15:00)
--- NOTE | 2019-05-07 11:19 | NUR ---
WOUND CARE CONSULT FOR 69 YO FEMALE HX OF AMS LOOSE STOOL IVANNA 12 ON STRICT PUP STATUS AND INTERVENTIONS AND ALTERNATING PRESSURE MATTRESS LABS: WBC-8.08 HGB_9.2 GLUCOSE-72 SKIN ASSESSMENT COMPLETE PATIENT PRESENTS WITH DENUDED JYOTI AREA LEFT BUTTOCKS STAGE 2 ULCER 3DSN6GL X .1CM MID LUMBAR POST SURGICAL SITES X 2 UPPER BACK SKIN TEAR 5CMX 6CM X .1CM RECOMMENDATIONS: NURSING TO CONTINUE TO MAINTAIN STRICT PUP STATUS AND INTERVENTIONS AND ALTERNATING PRESSURE MATTRESS NURSING TO CONTINUE TO ASSIST PATIENT OUT OF BED FOR MEALS AND MUCH TOLERATED NURSING TO CONTINUE TO ASSIST PATIENT NEEDED WITH MEALS AND NUTRITIONAL SUPPLEMENTS TO ENSURE PROPER REQUIREMENTS FOR HEALING NURSING TO CONTINUE TO OFFLOAD FEET AND HEELS NEEDED WITH PILLOW SUSPENSION WHEN IN BED NURSING TO CLEAN DENUDED JYOTI AREA WITH NORMAL SALINE DAILY AND APPLY BARRIER PASTE NURSING TO CLEAN LEFT BUTTOCKS STAGE 2 ULCER AND UPPER BACK SKIN TEAR WITH NORMAL SALINE DAILY AND APPLY VENELEX OINTMENT AND COVER WITH ALLEVYN FOAM DRESSING NURSING TO COVER AND PROTECT LUMBAR POST SURGICAL SITES
--- NOTE | 2019-05-07 11:48 | NUR ---
BEDSIDE HEMODIALYSIS TREATMENT IN PROGRESS. CALL LIGHT AT REACH.
[2019-05-07 12:04] VITALS: BP 132/68
[2019-05-07] MEDS ORDERED: BALSAM PERU/CASTOR OIL 60 GM OINT...G. TP SCH (13:00)
--- NOTE | 2019-05-07 16:00 | NUR ---
HEMODIALYSIS TREATMENT COMPLETED. 1 LITTER REMOVED PER DIALYSIS NURSE.
[2019-05-07] MEDS: EPOETIN ALFA-EPBX 10,000 UNIT/ML VIAL SC SCH (16:12)
[2019-05-07 16:47] VITALS: BP 126/66
--- NOTE | 2019-05-07 17:00 | NUR ---
BED IS BEING DELIVERED, SPOKE WITH DAUGHTER, SHE WAS CONCERNED ABOUT TRANSPORTING HER WITH HER SERVICE CAR DRIVER. LET HER KNOW WE WOULD CALL AND SET UP FOR AMBULANCE TRANSFER FOR 8PM THIS EVENING. SHE WAS CONCERNED ABOUT TRANSPORT FOR DIALYSIS ON FRIDAY. REMINDED HER AGAIN JOHN FROM THE DIALYSIS UNIT BECAUSE SHE IS THE ONE WORKING ON THAT. SHE WAS CONCERNED ABOUT HER NOT GETTING THERAPY, I REASSURED HER THAT [facility] IS THE HOME [facility] AND THEY WILL BE FOLLOWING UP WITH HER, I ALSO REMINDED HER THAT SHE HAS ALL THE NUMBERS TO THE COMPANIES SHE WILL BE GETTING SERVICES FOR.
[2019-05-07] MEDS ORDERED: LACTULOSE20 GM/30 M RC (17:51)
[2019-05-07] MEDS ORDERED: MEGESTROL ACETA40 MG PO (17:51)
[2019-05-07] MEDS ORDERED: ATIVAN0.5 MG PO (17:51)
[2019-05-07] MEDS ORDERED: VENELEX OINTMEN60 GM TP (17:51)
[2019-05-07] MEDS ORDERED: ACETAMINOPHEN325 M1 PO (17:51)
[2019-05-07] MEDS ORDERED: EFFEXOR XR 3737.5 MG PO (17:51)
[2019-05-07] MEDS ORDERED: NEPHRO-VITE TABL1 EA PO (17:51)
--- NOTE | 2019-05-07 18:48 | NUR ---
EMMY TUCKER REQUEST CM TO MEET W THE PT AND DTR REGARDING TRANSPORTATION TO HD ON FRI. DTR STATES THE BED HAD NOT [facility] DELIVERED AND JOHN HAD NOT CALLED FROM THE OP HD UNIT TO ARRANGE TRANSPORTATION. CALL TO SW. MARIANA VERIFIED THAT EVERYTHING WAS TAKEN CARE OF. DTR STATES SHE DID NOT HAVE A WC TO GET HER MOTHER TO HD. ORDER FOR WC WAS WRITTEN. PROVIDED CHOICE. CHOICE LETTER WAS SIGNED AND COPY TO CHART. REFERRAL FAXED TO [facility] @ OFF: [phone] / FAX: [phone] ORDER WAS WRITTEN FOR HOME HEALTH FOR THE PT FOR WOUND CARE. WILL F/U ON FRIDAY. IMM LETTER EXPLAINED TO PT. PT VERBALIZED UNDERSTANDING. IMM LETTER SIGNED. COPY TO PT AND COPY TO CHART.
--- NOTE | 2019-05-07 19:31 | NUR ---
PATIENT DISCHARGED HOME. DISCHARGE INSTRUCTIONS, PRESCRIPTIONS, AND FOLLOW UP GIVEN TO PATIENT. ALL PERSONAL ITEMS TAKEN WITH PATIENT. LEFT UNIT ON STRETCHER PER AMBULANCE.
--- NOTE | 2019-05-08 09:42 | NUR ---
FAXED HOME HEALTH ORDER TO [facility], FAX CONFIRMATION RECEIVED
--- NOTE | 2019-05-10 05:58 | Discharge Summary ---
CHIEF COMPLAINT: Confusion. HISTORY OF PRESENT ILLNESS: The patient is a 69-year-old female, admitted via the emergency department due to disorientation and confusion with known history of liver cirrhosis; end-stage renal disease, on hemodialysis; hepatorenal syndrome. She missed hemodialysis on Friday and Friday prior to admission. Per documentation, she was found unresponsive and the daughter stated that the patient had no desire to live. She stopped eating and had a passive wish. PAST MEDICAL HISTORY: End-stage renal disease, on hemodialysis Friday, Friday, Friday; gastroesophageal reflux disease; rheumatoid arthritis. Liver disease/cirrhosis; anxiety; hyperlipidemia; osteoarthritis; esophageal stricture; chronic low back pain; L1 compression fracture; anemia due to end-stage renal disease; thrombocytopenia due to liver cirrhosis; hepatorenal syndrome. PAST SURGICAL HISTORY: Cholecystectomy, tonsillectomy, dilation of esophageal strictures, kyphoplasty on 04/22/2019, , knee replacement bilaterally. FAMILY HISTORY: Sister had cancer and stroke. Nephew had diabetes mellitus. SOCIAL HISTORY: Denies history of tobacco, alcohol, or illicit drugs. ALLERGIES: TOFACITINIB. ADMITTING DIAGNOSES: 1. Altered mental status with lethargy. 2. Metabolic encephalopathy. 3. Passive wish with depression. 4. End-stage renal disease, on hemodialysis Friday, Friday, Friday, and currently needing hemodialysis. 5. Liver cirrhosis with thrombocytopenia. 6. Chronic low back pain, status post kyphoplasty on 04/22/2019. 7. Bibasilar atelectasis. 8. Mild acute hyperkalemia. 9. Sinus tachycardia with heart rate 113. 10. Gastroesophageal reflux disease. DISCHARGE DIAGNOSES: 1. Altered mental status, deviating from baseline. 2. Unspecified psychosis. 3. Single severe major depressive disorder. 4. End-stage renal disease with hemodialysis on Friday, Friday, and Friday. 5. Primary biliary cirrhosis with thrombocytopenia. 6. Anemia. 7. Rheumatoid arthritis. 8. Ambulatory dysfunction. 9. Status post kyphoplasty on 04/22/2019. 10. Bibasilar atelectasis. 11. Moderate protein-calorie malnutrition. 12. Gastroesophageal reflux disease. CONSULTING PHYSICIANS: Include Dr. Anais Ramesh with Psychiatry, Dr. Nivia Segundo with Hematology, Dr. Borrero with Nephrology. HOSPITAL COURSE: The patient continued to receive hemodialysis treatments during her stay on Friday, Friday, and Friday. Rifaximin and lactulose were continued for the primary biliary cirrhosis. LFTs and platelets were monitored. Hemoglobin and hematocrit were monitored. IV iron was held due to elevated ferritin. Procrit was continued. Physical Therapy was consulted for evaluation and treatment. The patient's pain was controlled. For protein-calorie malnutrition, Megace and Nephro-Fam b.i.d. as per the registered dietitian's recommendations. The patient had refused medications and dialysis prior to admission. During her stay, she was too confused to refuse anything and was given her lactulose rectally as she was not alert enough to swallow. Family had refused hospice. [employer] division manager were diligently to communicate with the family in an effort to provide them with what they desired per caseworker protective services notes. Plan is home with home health with physical therapy, occupational therapy, with hospital bed. Hospital bed will be delivered today. Again, hospice has been declined on more than 1 occasion. They will be using [facility]. Per the most recent Psychiatry note, diagnoses listed included unspecified psychosis and major depressive disorder, single, moderate, rule out catatonia. Plan is to discontinue Ativan 0.25 mg p.o. b.i.d. Continue Effexor XR 37.5 mg p.o. daily. Continue Ativan 0.5 mg p.o. daily as needed for catatonia with parameters. Monitor for mood. The patient is to follow up with her PCP in 1 to 2 weeks. Continue renal diet. Activity level as tolerated. Follow up with Hematology and Psychiatry as directed. Dictated by Luisito Ching NP MD GUSTAVO ValadezP/MODL /[id number]
--- NOTE | 2019-05-10 10:54 | Progress Note ---
DATE: 05/07/2019 Psychiatric Progress Note SUBJECTIVE: The patient evaluated, events noted. The patient is in the room. She is doing better. She is answering questions. She reports feeling depressed. She denies any suicidal or homicidal ideation. She does not know where she is. She is talking less usually, but more than yesterday. She is not combative. ASSESSMENT: 1. Unspecified psychosis. 2. Major depressive disorder, single episode, severe. 3. Rule out catatonia. PLAN: 1. Continue Ativan p.r.n. 2. Continue with Effexor, small dose. 3. Monitor for mood. 4. Supportive therapy. Dictated by Marge Harris PA-C Anais Ramesh MD QTV/MODL /[id number]
--- NOTE | 2019-05-11 05:09 | Progress Note ---
DATE: 05/06/2019 Psychiatric Progress Note SUBJECTIVE: The patient evaluated and events noted. The patient is in the room. She is drowsy. She is not answering any questions. As per nursing staff, the patient has been drowsy. She has not received any p.r.n. medication. She is refusing medications. As per the Case Management family members have accepted to take her home soon. There were some issues with placement. The patient was in the hospice setting prior to hospitalization. ASSESSMENT: 1. Unspecified psychosis. 2. Major depressive disorder, recurrent, single episode, severe. 3. Rule out catatonia. PLAN: 1. Continue current medications. 2. Monitor for agitation and mood. 3. Discussed with nursing staff. Dictated by Marge Harris PA-C Anais Ramesh MD QTV/MODL /[id number]
== END 2019-05-07 19:27 | disposition home health service (06) | DRG 441 ==
LOC: ER 14:54 → ERHOLD 18:16 → MED/SURG2 20:55 → OBSVTOIN 05-03 09:15
PROVIDERS: ADMIT Internal Medicine; ATTEND Internal Medicine
PROC: 5A1D70Z Performance of Urinary Filtration, Intermittent, Less than 6 Hours Per Day (ICD-10-PCS; principal; 2019-05-03)
PROC: 30233N1 Transfusion of Nonautologous Red Blood Cells into Peripheral Vein, Percutaneous Approach (ICD-10-PCS; 2019-05-04)
PROC: 5A1D70Z Performance of Urinary Filtration, Intermittent, Less than 6 Hours Per Day (ICD-10-PCS; 2019-05-05)
PROC: 5A1D70Z Performance of Urinary Filtration, Intermittent, Less than 6 Hours Per Day (ICD-10-PCS; 2019-05-07)
DX: K72.90 Hepatic failure, unspecified without coma (principal); N18.6 End stage renal disease; G93.41 Metabolic encephalopathy; J98.11 Atelectasis; F32.2 Major depressive disorder, single episode, severe without psychotic features; R41.82 Altered mental status, unspecified; K74.60 Unspecified cirrhosis of liver; R62.7 Adult failure to thrive; F32.9 Major depressive disorder, single episode, unspecified; D69.6 Thrombocytopenia, unspecified; R00.0 Tachycardia, unspecified; E87.5 Hyperkalemia; M54.5 Low back pain; D63.1 Anemia in chronic kidney disease; F06.1 Catatonic disorder due to known physiological condition; Z88.8 Allergy status to other drugs, medicaments and biological substances; Z68.23 Body mass index [BMI] 23.0-23.9, adult; Z99.2 Dependence on renal dialysis; K21.9 Gastro-esophageal reflux disease without esophagitis; Z84.89 Family history of other specified conditions; Z82.3 Family history of stroke; Z83.3 Family history of diabetes mellitus
CPT/HCPCS: 36415; 71045; 80048; 80053; 82140; 82550; 82553; 82607; 82728; 82746; 83540; 83880; 84466; 84484; 85007; 85025; 85027; 85045; 86704; 86705; 86850; 86900; 86920; 87040; 87340; 93005; 96365; 97139; 99284; G0378; J1644; J2060; J2150; J7030; J7050; J7512; P9016